=== PATIENT | male | born 1955 | race Caucasian/White ===

== ENCOUNTER 2017-01-18 13:39 | Emergency (ER) | payer SELFPAY ==
--- NOTE | 2017-01-18 14:13 | Emergency Department Report ---
Chief Complaint: Wound/Laceration Stated Complaint: WOUND CHECK Time Seen by Provider: 01/18/17 14:06 - HPI History of Present Illness: PT states he had foot surgery at [place]. PT states after his surgery, he was sent to [facility] and he said it was very dirty. PT states he is here to have dressing changed. pt states his dressing has not been changed in two weeks. - ROS Review of Systems: + odor to foot - Exam Physical Exam: PT is tachycardic PT has a dressing to his L foot. Dressing removed, + odor, + drainage, + swelling MSE screening note: Focused history and physical exam performed. Due to findings the following was ordered: ekg, labs, xr PT states he only wanted dressing change. PT aware that he will need more of a work up due to the condition of his foot. ED Disposition for MSE Condition: Stable
[2017-01-18 15:01] LABS: Basophils % (Auto) 0.6 % (0.0-1.8); Eosinophils % (Auto) 0.9 % (0.0-4.3); Hematocrit 38.4 % (35.5-45.6); Hemoglobin 12.1 gm/dl (11.8-15.2); Mean Corpuscular HGB Conc 31 % (32-34); Mean Corpuscular Hemoglobin 28 pg (28-32); Mean Corpuscular Volume 90 fl (84-94); Platelet Count 444 K/mm3 (140-440); Red Blood Count 4.28 M/mm3 (3.65-5.03); Red Cell Distribution Width 17.2 % (13.2-15.2)
[2017-01-18 15:15] LABS: Alanine Aminotransferase 57 units/L (7-56); Albumin 3.6 g/dL (3.9-5); Albumin/Globulin Ratio 1.1 %; Alkaline Phosphatase 158 units/L (35-129); Anion Gap 23 mmol/L; Blood Urea Nitrogen 33 mg/dL (9-20); Calcium 8.8 mg/dL (8.4-10.2); Carbon Dioxide 22 mmol/L (22-30); Chloride 99.6 mmol/L (98-107); Glucose 96 mg/dL (75-100); Potassium 4.2 mmol/L (3.6-5.0); Sodium 140 mmol/L (137-145)
[2017-01-18 15:38] VITALS: BP 133/97
--- NOTE | 2017-01-18 17:06 | Emergency Department Report ---
HPI - General Chief Complaint: Wound/Laceration Time Seen by Provider: 01/18/17 14:06 - HPI HPI: Chief complaint I need my foot clean Patient is a 61-year-old white male status post left great toe amputation about 2 weeks ago at [facility]. State he has been having difficulties scheduling his follow-up appointment with his negative turner apprentice. States he lives in a motel and doesn't trust awarded they're to clean his wound. Came to ED to reevaluate his left great toe wound. Patient denies any fever or chills or drainage. States he walks a lot, looking for jobs at different places. He does not have a car and walks to most places. ED Past Medical Hx - Past Medical History Previous Medical History?: Yes Hx Hypertension: Yes Additional medical history: CAD, PVD - Surgical History Past Surgical History?: Yes Additional Surgical History: Left foot surgery - Social History Smoking Status: Former Smoker Substance Use Type: Prescribed - Medications Home Medications: Home Medications Medication Instructions Recorded Confirmed Last Taken Type Clopidogrel [Plavix] 75 mg PO QDAY 01/18/17 01/18/17 01/17/17 History Furosemide [Lasix TAB] 40 mg PO QDAY 01/18/17 01/18/17 01/17/17 History Lovastatin [Altoprev] 40 mg PO QPM 01/18/17 01/18/17 01/17/17 History Metoprolol [Lopressor TAB] 50 mg PO DAILY 01/18/17 01/18/17 01/17/17 History Sulfamethoxazole/Trimethoprim 1 each PO BID #20 tablet 01/18/17 Unknown Rx [Bactrim DS TAB] traMADol [Ultram] 50 mg PO Q4HR PRN 01/18/17 01/18/17 01/17/17 History ED Review of Systems ROS: Stated complaint: WOUND CHECK Other details as noted in HPI Comment: All other systems reviewed and negative Constitutional: weakness Musculoskeletal: myalgia Skin: other (left great toe amputation) Physical Exam - Physical Exam Vital Signs: Vital Signs 01/18/17 01/18/17 14:09 15:38 Temperature 98.3 F Pulse Rate 133 H 120 H Respiratory 20 16 Rate Blood Pressure 145/101 Blood Pressure 133/97 [Left] O2 Sat by Pulse 100 97 Oximetry Physical Exam: Vital signs reviewed Gen. alert and oriented 3 in no distress Head atraumatic normocephalic Eyes PERR LA EOMI Chest regular rate and rhythm normal S1-S2 lungs clear bilaterally Abdomen soft nondistended Back no point tenderness paravertebral tenderness Neuro no focal deficit. Psych normal mood. Extremity left great toe area wound dry clean intact. ED Course Vital Signs 01/18/17 01/18/17 14:09 15:38 Temperature 98.3 F Pulse Rate 133 H 120 H Respiratory 20 16 Rate Blood Pressure 145/101 Blood Pressure 133/97 [Left] O2 Sat by Pulse 100 97 Oximetry - Reevaluation(s) Reevaluation #1: 01/18/17 17:05 Wound was cleaned and dressed in a sterile manner by KARUNA Jacobo. patient was advised about admission for observation due to abnormal lactic acid and tachycardia. But he states that he's been walking all day today which might be the cause for his elevated heart rate. He stated that he has to go look for work and therefore I called his negative turner apprentice and set him up an appointment for tomorrow at 10:30 in the morning. He will try to get there in the morning and is in agreement with that plan. I will cover him with Bactrim for cellulitis and abscess protection. ED Medical Decision Making - Lab Data Result diagrams: 01/18/17 14:34 01/18/17 14:34 Critical care attestation.: If time is entered above; I have spent that time in minutes in the direct care of this critically ill patient, excluding procedure time. ED Disposition Clinical Impression: Cellulitis and abscess of foot Disposition: DC-01 TO HOME OR SELFCARE Is pt being admited?: No Does the pt Need Aspirin: No Condition: Stable Instructions: Cellulitis (ED) Prescriptions: Sulfamethoxazole/Trimethoprim [Bactrim DS TAB] 1 each PO BID #20 tablet Referrals: PRIMARY CARE, [Primary Care Provider] - 3-5 Days
--- NOTE | 2017-01-19 09:38 | XRay Report ---
LEFT FOOT, 3 views: History: Pain, swelling, infection The distal left great toe has been amputated or destroyed. There is overlying soft tissue swelling consistent with cellulitis. The remaining bony structures and joint spaces are unremarkable. IMPRESSION: Soft tissue swelling of the distal foot. The great toe is essentially absent. Correlate for history of surgery. Otherwise, osteomyelitis should be considered.
== END 2017-01-18 17:38 | disposition home or self-care (01) ==
LOC: ED 13:39
DX: L03.032 Cellulitis of left toe (principal); L02.612 Cutaneous abscess of left foot; I10 Essential (primary) hypertension; I25.10 Atherosclerotic heart disease of native coronary artery without angina pectoris; F17.210 Nicotine dependence, cigarettes, uncomplicated; Z79.02 Long term (current) use of antithrombotics/antiplatelets
CPT/HCPCS: 36415; 80053; 82140; 85025; 93005; 93010; 99283

== ENCOUNTER 2017-01-19 18:43 | Inpatient (IN) | payer OTHER ==
[2017-01-19] MEDS ORDERED: MORPHINE IV ONE (19:39)
[2017-01-19] MEDS ORDERED: ZOFRAN IV ONE (19:40)
[2017-01-19 19:51] LABS: Basophils % (Auto) 0.5 % (0.0-1.8); Eosinophils % (Auto) 0.7 % (0.0-4.3); Hematocrit 36.2 % (35.5-45.6); Hemoglobin 11.8 gm/dl (11.8-15.2); Mean Corpuscular HGB Conc 33 % (32-34); Mean Corpuscular Hemoglobin 28 pg (28-32); Platelet Count 402 K/mm3 (140-440); Red Blood Count 4.15 M/mm3 (3.65-5.03); Red Cell Distribution Width 17.1 % (13.2-15.2)
[2017-01-19 19:58] LABS: Anion Gap 21 mmol/L; BUN/Creatinine Ratio 29.16; Blood Urea Nitrogen 35 mg/dL (9-20); Calcium 8.8 mg/dL (8.4-10.2); Carbon Dioxide 24 mmol/L (22-30); Chloride 100.1 mmol/L (98-107); Glucose 153 mg/dL (75-100); Sodium 140 mmol/L (137-145)
[2017-01-19 20:00] LABS: Mean Corpuscular Volume 87 fl (84-94)
[2017-01-19] MEDS ORDERED: HEPARIN IV ONE (20:11)
[2017-01-19 20:19] LABS: Cholesterol 93 mg/dL (50-199); HDL Cholesterol 19 mg/dL (40-59); LDL Cholesterol,Direct 49 mg/dL (50-130); Triglycerides 128 mg/dL (2-149)
--- NOTE | 2017-01-19 20:21 | Admit Criteria Form ---
Admission Criteria Documentation: CHEST PAIN Clinical Indications for Admission to Inpatient Care (Place 'X' for any and all applicable criteria): Admission is indicated for chest pain and ANY ONE of the following(1)(2)(3)(4)(5 ): [X ]I. Angina with acute coronary syndrome (Also use Myocardial Infarction or Angina guideline) [ ]II. Hemodynamic instability [ ]III. Angina needing acute intervention as indicated by ALL of the following( 11)(12): [ ]a) Unstable angina is present as indicated by angina that is ANY ONE of the following: [ ]i) New onset [ ]ii) Nocturnal [ ]iii) Prolonged at rest [ ]iv) Progressive [ ]b) Angina warrants acute intervention as indicated by ANY ONE of the following: [ ]i) Recurrent angina (e.g, not responding as previously to treatment) [ ]ii) Angina at rest or with low-level activities despite initial medical therapy [ ]iii) New or presumably new ST-segment depression on ECG [ ]iv) Signs or symptoms of heart failure (eg, dyspnea, pulmonary edema) [ ]v) New or worsening mitral regurgitation [ ]vi) Hemodynamic instability [ ]vii) Dangerous arrhythmia (eg, sustained ventricular tachycardia) [ ]viii) History of percutaneous coronary intervention within 6 months [ ]ix) History of coronary artery bypass graft surgery [ ]x) KYE risk score of 2 or greater[A] [ ]xi) History of Diabetes(14) [ ]xii) High-risk cardiac ischemia findings on noninvasive testing (e.g, echocardiogram, treadmill testing, nuclear scan) [ ]xiii) Chronic renal insufficiency (ie, estimated GFR less than 60 mL/min/1.732m) [ ]xiv) Left ventricular ejection fraction less than 40% [ ]IV. Evidence of UT (eg, cardiac biomarkers positive, ST-segment elevation on ECG) also use Myocardial Infarction Criteria Form. [ ]V. Pulmonary edema [ ]. Respiratory distress [ ]VII. Chest pain indicative of serious diagnosis other than coronary artery disease (eg, aortic dissection) [ ]VIII. Contraindications and/or Inappropriate clinical situations for Observational Care in patients with Chest Pain, when ANY ONE of the following is required: [ ]a) Patient with risk factor for pulmonary embolism, acute coronary syndrome and myocardial infarction (18) [ ]b) Patient with Pulmonary embolism require an average LOS of 4.3 days, therefore emergency department observation management is inappropriate 18,23 [ ]c) Painful condition/s in the elderly, have the highest rate of recidivism after emergency department observation management (10.8%) 20,21,22 [ ]d) Elevated cardiac biomarker requires intensive and exhaustive care (19) [ ]IX. General contraindications and/or Inappropriate clinical situations for Observational Care in patients with Chest Pain, when ANY ONE of the following is required: [ ]a) Prediction of prolongation of LOS based on ANY ONE of the following may be considered as a contraindication for observational care 2, 3, 4, 5, 6, 7, 8, 9, 10, 11 [ ]i) Age > 65 yrs. [ ]ii) Patient arriving by ambulance [ ]iii) Patient with high acuity [ ]iv) Patient requiring vital sign monitoring [ ]v) Patient on IV medication [ ]b) Systolic blood pressures 180mmHg 3,12 [ ]c) Patient with altered mental status including delirium and other alteration of consciousness, (3) [ ]d) Patient whose discharge disposition will be to a residential home or rehabilitation home should not be managed in Emergency Department Observation Unit. CMS rule requires 3 days hospital stay before such placement. 3,13 [ ]e) Patient with failure to thrive due to broad array of etiologies 3,16,17 [ ]f) Inability to ambulate 3,14 Extended stay beyond goal length of stay may be needed for (1)(28): [ ]a) Specific condition diagnosed after evaluation (eg, pulmonary embolism, aortic dissection) [ ]b) Unstable angina [ ]c) Continued suspicion of acute coronary syndrome with inability to complete needed cardiac evaluation (eg, patient clinically unable to undergo stress testing) [ ]d) Myocardial infarction (Contents from ANGINA and CHEST PAIN clinical indications for admission to inpatient care have been integrated in this form) The original [facility] [employer] content created by [employer] has been revised. The portions of the content which have been revised are identified through the use of italic text or in bold, and [facility] [employer] has neither reviewed nor approved the modified material. All other unmodified content is copyright [employer]. Please see references footnoted in the original [employer] [employer] edition 2016 Admission Criteria Met: Yes
[2017-01-19] MEDS ORDERED: HEPARIN 10,000 UNITS/10 ML ONE (20:22)
[2017-01-19] MEDS ORDERED: ASPIRIN PO ONE (20:43)
[2017-01-19] MEDS ORDERED: NITRO-BID 2% TP ONE (20:43)
--- NOTE | 2017-01-19 21:12 | Emergency Department Report ---
ED Chest Pain HPI - General Chief Complaint: Chest Pain Stated Complaint: CHEST PAIN Time Seen by Provider: 01/19/17 19:38 Source: patient Mode of arrival: Ambulatory Limitations: No Limitations - History of Present Illness MD Complaint: chest pain -: Gradual Time: 15:00 Pain Location: substernal Pain Radiation: none Severity: severe Severity scale (0 -10): 4 Quality: tightness, heaviness Consistency: constant Improves With: nothing Worsens With: nothing Context: recent illness re: nausea, dyspnea Other Symptoms: palpitations Treatments Prior to Arrival: none - Related Data On Oral Contraceptives: No Home Medications Medication Instructions Recorded Confirmed Last Taken Clopidogrel [Plavix] 75 mg PO QDAY 01/18/17 01/19/17 01/19/17 Furosemide [Lasix TAB] 40 mg PO QDAY 01/18/17 01/19/17 01/19/17 Lovastatin [Altoprev] 40 mg PO QPM 01/18/17 01/19/17 01/19/17 Metoprolol [Lopressor TAB] 50 mg PO DAILY 01/18/17 01/19/17 01/19/17 traMADol [Ultram] 50 mg PO Q4HR PRN 01/18/17 01/19/17 01/19/17 Previous Rx's Medication Instructions Recorded Last Taken Type Sulfamethoxazole/Trimethoprim 1 each PO BID #20 tablet 01/18/17 01/19/17 Rx [Bactrim DS TAB] Allergies Allergy/AdvReac Type Severity Reaction Status Date / Time Penicillins AdvReac Hives Verified 01/18/17 14:28 Heart Score - HEART Score History: Highly suspicious EKG: Non-specific Age: 45-65 Risk factors: > 3 risk factors or hx of atherosclerotic disease Troponin: 1-3x normal limit HEART Score: 7 - Critical Actions Critical Actions: 4-6 pts:12-16.6% risk of adverse cardiac event. Should be admitted ED Review of Systems ROS: Stated complaint: CHEST PAIN Other details as noted in HPI Comment: All other systems reviewed and negative Respiratory: shortness of breath Cardiovascular: chest pain ED Past Medical Hx - Past Medical History Previous Medical History?: Yes Hx Hypertension: Yes Hx Heart Attack/AMI: Yes (11/28/16) Hx Congestive Heart Failure: (possible CHK bilateral lower edema) Additional medical history: CAD, PVD - Surgical History Past Surgical History?: Yes Additional Surgical History: Left foot surgery - Social History Smoking Status: Current Some Day Smoker Substance Use Type: None - Medications Home Medications: Home Medications Medication Instructions Recorded Confirmed Last Taken Type Clopidogrel [Plavix] 75 mg PO QDAY 01/18/17 01/19/17 01/19/17 History Furosemide [Lasix TAB] 40 mg PO QDAY 01/18/17 01/19/17 01/19/17 History Lovastatin [Altoprev] 40 mg PO QPM 01/18/17 01/19/17 01/19/17 History Metoprolol [Lopressor TAB] 50 mg PO DAILY 01/18/17 01/19/17 01/19/17 History Sulfamethoxazole/Trimethoprim 1 each PO BID #20 tablet 01/18/17 01/19/17 Rx [Bactrim DS TAB] traMADol [Ultram] 50 mg PO Q4HR PRN 01/18/17 01/19/17 01/19/17 History ED Physical Exam - General Limitations: No Limitations General appearance: alert, in no apparent distress - Head Head exam: Present: atraumatic - Eye Eye exam: Present: normal appearance Pupils: Present: normal accommodation - ENT ENT exam: Present: normal exam, normal orophraynx - Neck Neck exam: Present: normal inspection, tenderness - Respiratory Respiratory exam: Present: normal lung sounds bilaterally - Cardiovascular Cardiovascular Exam: Present: regular rate, normal rhythm - GI/Abdominal GI/Abdominal exam: Present: soft - Rectal Rectal exam: Present: deferred ED Course Vital Signs 01/19/17 01/19/17 01/19/17 18:20 18:30 18:40 Temperature Pulse Rate Respiratory Rate Blood Pressure 154/102 154/102 158/105 Blood Pressure [Right] O2 Sat by Pulse 97 97 98 Oximetry 01/19/17 01/19/17 01/19/17 18:50 19:02 19:16 Temperature 98.7 F Pulse Rate 111 H 114 H Respiratory 16 18 Rate Blood Pressure 158/98 120/88 135/99 Blood Pressure [Right] O2 Sat by Pulse 98 97 98 Oximetry 01/19/17 01/19/17 01/19/17 19:20 19:28 19:30 Temperature Pulse Rate 114 H 115 H Respiratory 22 29 H Rate Blood Pressure 135/99 127/100 Blood Pressure 135/99 [Right] O2 Sat by Pulse 96 98 Oximetry 01/19/17 01/19/17 01/19/17 19:40 19:50 20:00 Temperature Pulse Rate 114 H 113 H 116 H Respiratory 29 H 21 12 Rate Blood Pressure 127/100 122/92 114/83 Blood Pressure [Right] O2 Sat by Pulse 95 98 99 Oximetry 01/19/17 01/19/17 01/19/17 20:10 20:20 20:30 Temperature Pulse Rate 113 H 114 H 120 H Respiratory 19 28 H 30 H Rate Blood Pressure 114/83 123/96 134/103 Blood Pressure [Right] O2 Sat by Pulse 99 99 93 Oximetry ED Medical Decision Making - Lab Data Result diagrams: 01/19/17 19:24 01/19/17 19:24 Critical care attestation.: If time is entered above; I have spent that time in minutes in the direct care of this critically ill patient, excluding procedure time. ED Disposition Clinical Impression: Acute coronary syndrome Disposition: DC-09 OP ADMIT IP TO THIS HOSP Is pt being admited?: Yes Does the pt Need Aspirin: No Condition: Stable Referrals: PRIMARY CARE, [Primary Care Provider] - 3-5 Days
--- NOTE | 2017-01-19 23:23 | History and Physical Report ---
History of Present Illness Date of examination: 01/19/17 Date of admission: 01/19/17 21:13 Chief complaint: Left-sided chest pain for 2 days History of present illness: History of present illness: 61-year-old male with history of 4 hypertension congestive heart failure with recent acute NE in December 2016 comes in for left-sided chest pain. Chest pain for off and on for the last 2 days. No diaphoresis. No shortness of breath. No palpitations. Chest pain as 6/10 intermittent in nature. No exacerbating or relieving factors. No recent travel. No prolonged sitting. - Past Medical History Previous Medical History?: Yes Hx Hypertension: Yes Hx Heart Attack/AMI: Yes (11/28/16) Hx Congestive Heart Failure: (possible CHK bilateral lower edema) Additional medical history: CAD, PVD - Surgical History Past Surgical History?: Yes Additional Surgical History: Left foot surgery - Social History Smoking Status: Current Some Day Smoker Substance Use Type: None - Medications Home Medications: Home Medications Medication Instructions Recorded Confirmed Last Taken Type Clopidogrel [Plavix] 75 mg PO QDAY 01/18/17 01/19/17 01/19/17 History Furosemide [Lasix TAB] 40 mg PO QDAY 01/18/17 01/19/17 01/19/17 History Lovastatin [Altoprev] 40 mg PO QPM 01/18/17 01/19/17 01/19/17 History Metoprolol [Lopressor TAB] 50 mg PO DAILY 01/18/17 01/19/17 01/19/17 History Sulfamethoxazole/Trimethoprim 1 each PO BID #20 tablet 01/18/17 01/19/17 Rx [Bactrim DS TAB] traMADol [Ultram] 50 mg PO Q4HR PRN 01/18/17 01/19/17 01/19/17 History Review of System: Constitutional: no fever, no chills, no weight loss Ears, eyes, nose, mouth and throat: no nasal congestion, no nasal discharge, no sinus pressure, no vision change, no red eye. Neck: No neck pain or rigidity. Cardiovascular: As in history of present illness Respiratory: No shortness of breath, no cough, no congestion, no wheezing Gastrointestinal: no abdominal pain, no nausea, no vomiting Genitourinary : no dysuria, no hematuria Musculoskeletal: no joint swelling or muscle ache Integumentary: no rash, no pruritis Neurological: no parathesias, no numbness, no tingling Endocrine: no cold or heat intolerance, no polyuria or polydipsia Hematologic/Lymphatic: no easy bruising, no easy bleeding, no gland swelling Allergic/Immunologic: no urticaria, no angioedema. Medications and Allergies Allergies Allergy/AdvReac Type Severity Reaction Status Date / Time Penicillins AdvReac Hives Verified 01/18/17 14:28 Home Medications Medication Instructions Recorded Confirmed Last Taken Type Clopidogrel [Plavix] 75 mg PO QDAY 01/18/17 01/19/17 01/19/17 History Furosemide [Lasix TAB] 40 mg PO QDAY 01/18/17 01/19/17 01/19/17 History Lovastatin [Altoprev] 40 mg PO QPM 01/18/17 01/19/17 01/19/17 History Metoprolol [Lopressor TAB] 50 mg PO DAILY 01/18/17 01/19/17 01/19/17 History Sulfamethoxazole/Trimethoprim 1 each PO BID #20 tablet 01/18/17 01/19/17 Rx [Bactrim DS TAB] traMADol [Ultram] 50 mg PO Q4HR PRN 01/18/17 01/19/17 01/19/17 History Exam - Physical Exam Narrative exam: Lying comfortably - Constitutional Vitals: Temp Pulse Resp BP Pulse Ox 97.6 F 112 H 24 118/95 94 01/19/17 23:11 01/19/17 23:11 01/19/17 23:11 01/19/17 23:11 01/19/17 23:11 General appearance: Present: no acute distress, well-nourished - EENT Eyes: Present: PERRL ENT: hearing intact, clear oral mucosa - Neck Neck: Present: supple, normal ROM - Respiratory Respiratory effort: normal Respiratory: bilateral: CTA - Cardiovascular Heart Sounds: Present: S1 & S2. Absent: rub, click - Extremities Extremities: pulses symmetrical, No edema Peripheral Pulses: within normal limits - Abdominal General gastrointestinal: Present: soft, non-tender, non-distended, normal bowel sounds Male genitourinary: Present: normal - Integumentary Integumentary: Present: clear, warm, dry - Musculoskeletal Musculoskeletal: gait normal, strength equal bilaterally - Psychiatric Psychiatric: appropriate mood/affect, intact judgment & insight - Neurologic Neurologic: CNII-XII intact, moves all extremities Results - Labs CBC & Chem 7: 01/20/17 04:54 01/20/17 04:54 Labs: Laboratory Last Values WBC 9.0 K/mm3 (4.5-11.0) 01/19/17 19:24 RBC 4.15 M/mm3 (3.65-5.03) 01/19/17 19:24 Hgb 11.8 gm/dl (11.8-15.2) 01/19/17 19:24 Hct 36.2 % (35.5-45.6) 01/19/17 19:24 MCV 87 fl (84-94) D 01/19/17 19:24 MCH 28 pg (28-32) 01/19/17 19:24 MCHC 33 % (32-34) 01/19/17 19:24 RDW 17.1 % (13.2-15.2) H 01/19/17 19:24 Plt Count 402 K/mm3 (140-440) 01/19/17 19:24 Lymph % (Auto) 16.1 % (13.4-35.0) 01/19/17 19:24 [place] % (Auto) 8.8 % (0.0-7.3) H 01/19/17 19:24 Eos % (Auto) 0.7 % (0.0-4.3) 01/19/17 19:24 Baso % (Auto) 0.5 % (0.0-1.8) 01/19/17 19:24 Lymph # 1.4 K/mm3 (1.2-5.4) 01/19/17 19:24 [place] # 0.8 K/mm3 (0.0-0.8) 01/19/17 19:24 Eos # 0.1 K/mm3 (0.0-0.4) 01/19/17 19:24 Baso # 0.0 K/mm3 (0.0-0.1) 01/19/17 19:24 Seg Neutrophils % 73.9 % (40.0-70.0) H 01/19/17 19:24 Seg Neutrophils # 6.6 K/mm3 (1.8-7.7) 01/19/17 19:24 D-Dimer 3206.82 ng/mlDDU (0-234) H 01/19/17 20:26 Sodium 140 mmol/L (137-145) 01/19/17 19:24 Potassium 5.0 mmol/L (3.6-5.0) 01/19/17 19:24 Chloride 100.1 mmol/L (98-107) 01/19/17 19:24 Carbon Dioxide 24 mmol/L (22-30) 01/19/17 19:24 Anion Gap 21 mmol/L 01/19/17 19:24 BUN 35 mg/dL (9-20) H 01/19/17 19:24 Creatinine 1.2 mg/dL (0.8-1.5) 01/19/17 19:24 Estimated GFR > 60 ml/min 01/19/17 19:24 BUN/Creatinine Ratio 29.16 % 01/19/17 19:24 Glucose 153 mg/dL (75-100) H 01/19/17 19:24 Calcium 8.8 mg/dL (8.4-10.2) 01/19/17 19:24 Troponin T 0.270 ng/mL (0.00-0.029) H* 01/19/17 19:24 NT-Pro-B Natriuret Pep 37488 pg/mL (0-900) H 01/19/17 19:24 Triglycerides 128 mg/dL (2-149) 01/19/17 19:24 Cholesterol 93 mg/dL (50-199) 01/19/17 19:24 LDL Cholesterol Direct 49 mg/dL (50-130) L 01/19/17 19:24 HDL Cholesterol 19 mg/dL (40-59) L 01/19/17 19:24 Cholesterol/HDL Ratio 4.89 % 01/19/17 19:24 Short CBC 01/19/17 01/19/17 01/20/17 Range/Units 19:24 23:58 04:54 WBC 9.0 8.7 9.3 (4.5-11.0) K/mm3 Hgb 11.8 12.1 12.1 (11.8-15.2) gm/dl Hct 36.2 38.4 36.4 (35.5-45.6) % Plt Count 402 400 392 (140-440) K/mm3 BMP 01/19/17 01/19/17 01/20/17 19:24 22:30 04:54 Sodium 140 138 141 Potassium 5.0 4.8 4.9 Chloride 100.1 100.6 101.2 Carbon Dioxide 24 20 L 24 BUN 35 H 37 H 41 H Creatinine 1.2 1.1 1.2 Glucose 153 H 131 H 90 Calcium 8.8 8.7 8.9 Cardiac Enzymes 01/19/17 01/19/17 01/19/17 Range/Units 19:24 22:30 22:31 Total Creatine Kinase 28 L (55-170) units/L CK-MB (CK-2) 2.2 (0.0-4.0) ng/mL Troponin T 0.270 H* 0.274 H* (0.00-0.029) ng/mL 01/19/17 01/20/17 01/20/17 Range/Units 23:58 04:54 04:54 Total Creatine Kinase 24 L (55-170) units/L CK-MB (CK-2) 2.1 (0.0-4.0) ng/mL Troponin T 0.298 H* 0.313 H* (0.00-0.029) ng/mL Liver Function 01/20/17 Range/Units 04:54 Total Bilirubin 0.90 (0.1-1.2) mg/dL AST 105 H (5-40) units/L ALT 113 H (7-56) units/L Alkaline Phosphatase 150 H (35-129) units/L Albumin 3.1 L (3.9-5) g/dL - Imaging and Cardiology EKG: report reviewed (sinus tachycardia heart rate of 124 nonspecific T-wave abnormalities and low voltage QRS) Assessment and Plan Advance Directives: Yes (full code) VTE prophylaxis?: Chemical Plan of care discussed with patient/family: Yes - Patient Problems (1) Acute coronary syndrome Current Visit: Yes Status: Acute Plan to address problem: Patient to get Trish scan. Also cardiology consult. Troponin is slightly high but CK-MB and CK is only 24 hence not in favor of acute cardiac injury. The high troponin may be secondary to his acute NE recently. Patient had 2 stents recently in December 2016. It was done at [facility]. 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 Patient had acute NE in November 2016 (2) Congestive heart failure Current Visit: Yes Status: Chronic Qualifiers: Congestive heart failure type: combined Congestive heart failure chronicity : C Plan to address problem: Continue Lasix (3) Coronary artery disease Current Visit: Yes Status: Chronic Qualifiers: Coronary Disease-Associated Artery/Lesion type: [place] artery [place] vs. transplanted heart: [place] heart Associated angina: with unspecified angina Qualified Code(s): I25.119 - Atherosclerotic heart disease of [place] coronary artery with unspecified angina pectoris Plan to address problem: Continue Plavix 75 mg once a day (4) Hypertension Current Visit: Yes Status: Chronic Qualifiers: Hypertension type: essential hypertension Qualified Code(s): I10 - Essential (primary) hypertension Plan to address problem: Continue metoprolol and losartan 25 mg daily (5) Hyperlipidemia Current Visit: Yes Status: Chronic Qualifiers: Hyperlipidemia type: mixed hyperlipidemia Qualified Code(s): E78.2 - Mixed hyperlipidemia Plan to address problem: Continue statins (6) DVT prophylaxis Current Visit: Yes Status: Acute Plan to address problem: Lovenox 40 mg subcutaneous daily
[2017-01-19] MEDS ORDERED: ZOFRAN IV PRN (23:24)
[2017-01-19] MEDS ORDERED: MILK OF MAGNESIA PO PRN (23:24)
[2017-01-19] MEDS ORDERED: DILAUDID IV PRN (23:24)
[2017-01-19] MEDS ORDERED: TYLENOL PO PRN (23:24)
[2017-01-19] MEDS ORDERED: DULCOLAX PR PRN (23:24)
[2017-01-19] MEDS ORDERED: SODIUM CHLORIDE FLUSH SYRINGE 10 ML IV PRN (23:26)
[2017-01-19] MEDS: BACTRIM DS PO SCH (23:49)
[2017-01-20 00:06] LABS: Anion Gap 22 mmol/L; BUN/Creatinine Ratio 33.63; Blood Urea Nitrogen 37 mg/dL (9-20); Calcium 8.7 mg/dL (8.4-10.2); Carbon Dioxide 20 mmol/L (22-30); Chloride 100.6 mmol/L (98-107); Glucose 131 mg/dL (75-100); Potassium 4.8 mmol/L (3.6-5.0); Sodium 138 mmol/L (137-145)
[2017-01-20 00:08] LABS: Creatine Kinase MB 2.2 ng/mL (0.0-4.0)
[2017-01-20 00:27] LABS: Basophils % (Auto) 0.9 % (0.0-1.8); Eosinophils % (Auto) 0.8 % (0.0-4.3); Hematocrit 38.4 % (35.5-45.6); Hemoglobin 12.1 gm/dl (11.8-15.2); Mean Corpuscular HGB Conc 32 % (32-34); Mean Corpuscular Hemoglobin 28 pg (28-32); Mean Corpuscular Volume 88 fl (84-94); Platelet Count 400 K/mm3 (140-440); Red Blood Count 4.35 M/mm3 (3.65-5.03); Red Cell Distribution Width 17.3 % (13.2-15.2); White Blood Count 8.7 K/mm3 (4.5-11.0)
[2017-01-20 05:41] LABS: Eosinophils % (Auto) 1.9 % (0.0-4.3); Hematocrit 36.4 % (35.5-45.6); Hemoglobin 12.1 gm/dl (11.8-15.2); Mean Corpuscular HGB Conc 33 % (32-34); Mean Corpuscular Hemoglobin 29 pg (28-32); Mean Corpuscular Volume 87 fl (84-94); Platelet Count 392 K/mm3 (140-440); Red Blood Count 4.16 M/mm3 (3.65-5.03); White Blood Count 9.3 K/mm3 (4.5-11.0)
[2017-01-20 06:07] LABS: Alanine Aminotransferase 113 units/L (7-56); Albumin 3.1 g/dL (3.9-5); Alkaline Phosphatase 150 units/L (35-129); Anion Gap 21 mmol/L; BUN/Creatinine Ratio 34.16; Blood Urea Nitrogen 41 mg/dL (9-20); Calcium 8.9 mg/dL (8.4-10.2); Carbon Dioxide 24 mmol/L (22-30); Chloride 101.2 mmol/L (98-107); Glucose 90 mg/dL (75-100); Potassium 4.9 mmol/L (3.6-5.0); Sodium 141 mmol/L (137-145); Total Protein 6.2 g/dL (6.3-8.2)
[2017-01-20 06:20] LABS: Creatine Kinase MB 2.1 ng/mL (0.0-4.0)
--- NOTE | 2017-01-20 07:42 | XRay Report ---
PORTABLE CHEST INDICATION: Chest pain. COMPARISON: None similar. FINDINGS: Portable, frontal chest radiograph suggests mild cardiomegaly and left coronary stent. Aortic knob calcifications. Slight bibasilar haziness, possibly atelectasis, though minimal fluid not entirely excluded. No CHF. EKG leads. Intact bones. CONCLUSION: Findings, as above. Thank you for the opportunity to participate in this patient's care.
[2017-01-20] MEDS ORDERED: LASIX PO SCH (10:00)
[2017-01-20] MEDS ORDERED: PLAVIX PO SCH (10:00)
[2017-01-20] MEDS ORDERED: LEXISCAN IV ONE (10:53)
--- NOTE | 2017-01-20 12:15 | Progress Note ---
Assessment and Plan Assessment and plan: 61-year-old male with history of hypertension, congestive heart failure with recent acute LA in November 2016 pw with chest pressure, ROSARIO, orthopnea. Nonstemi for stress test -cardiology consult -start heparin drip -concern for VTE acute on chronic Congestive heart failure, sytolic Continue Lasix, optimize cardiac meds -fup echo -cardiology following Hypertension Continue metoprolol and losartan 25 mg daily Hyperlipidemia Continue statins LLE DVT -start heparin drip -fup CTA chest to r/o PE DVT prophylaxis fully anticoagulated History Interval history: still having intermittent chest pressure, 6/10, ROSARIO and orthopnea. LLE Swelling Hospitalist Physical - Physical exam Narrative exam: General: Patient appears well in no distress HEENT: MMM, EOMI cardiac: S1-S2 heard lungs: clear to auscultation, abdomen: soft, nontender, nondistended bowel sounds positive extremities: 2 plus LLE pitting edema, sp L big toe amputation with wound ulcer at the site Skin: no rash or lesion Neuro: no focal deficit Psych: appropriate behavior and mood, cognition intact - Constitutional Vitals: Temp Pulse Resp BP Pulse Ox 97.4 F L 111 H 18 119/93 94 01/20/17 08:54 01/20/17 08:54 01/20/17 08:54 01/20/17 08:54 01/20/17 08:54 General appearance: Present: no acute distress, well-nourished Results - Labs CBC & Chem 7: 01/20/17 04:54 01/20/17 04:54 Labs: Laboratory Last Values WBC 9.3 K/mm3 (4.5-11.0) 01/20/17 04:54 RBC 4.16 M/mm3 (3.65-5.03) 01/20/17 04:54 Hgb 12.1 gm/dl (11.8-15.2) 01/20/17 04:54 Hct 36.4 % (35.5-45.6) 01/20/17 04:54 MCV 87 fl (84-94) 01/20/17 04:54 MCH 29 pg (28-32) 01/20/17 04:54 MCHC 33 % (32-34) 01/20/17 04:54 RDW 17.0 % (13.2-15.2) H 01/20/17 04:54 Plt Count 392 K/mm3 (140-440) 01/20/17 04:54 Lymph % (Auto) 30.1 % (13.4-35.0) 01/20/17 04:54 Tripp % (Auto) 8.6 % (0.0-7.3) H 01/20/17 04:54 Eos % (Auto) 1.9 % (0.0-4.3) 01/20/17 04:54 Baso % (Auto) 1.0 % (0.0-1.8) 01/20/17 04:54 Lymph # 2.8 K/mm3 (1.2-5.4) 01/20/17 04:54 Tripp # 0.8 K/mm3 (0.0-0.8) 01/20/17 04:54 Eos # 0.2 K/mm3 (0.0-0.4) 01/20/17 04:54 Baso # 0.1 K/mm3 (0.0-0.1) 01/20/17 04:54 Seg Neutrophils % 58.4 % (40.0-70.0) 01/20/17 04:54 Seg Neutrophils # 5.4 K/mm3 (1.8-7.7) 01/20/17 04:54 D-Dimer 3206.82 ng/mlDDU (0-234) H 01/19/17 20:26 Sodium 141 mmol/L (137-145) 01/20/17 04:54 Potassium 4.9 mmol/L (3.6-5.0) 01/20/17 04:54 Chloride 101.2 mmol/L (98-107) 01/20/17 04:54 Carbon Dioxide 24 mmol/L (22-30) 01/20/17 04:54 Anion Gap 21 mmol/L 01/20/17 04:54 BUN 41 mg/dL (9-20) H 01/20/17 04:54 Creatinine 1.2 mg/dL (0.8-1.5) 01/20/17 04:54 Estimated GFR > 60 ml/min 01/20/17 04:54 BUN/Creatinine Ratio 34.16 % 01/20/17 04:54 Glucose 90 mg/dL (75-100) 01/20/17 04:54 Hemoglobin A1c 5.7 % (4-6) 01/19/17 23:58 Calcium 8.9 mg/dL (8.4-10.2) 01/20/17 04:54 Total Bilirubin 0.90 mg/dL (0.1-1.2) 01/20/17 04:54 AST 105 units/L (5-40) H 01/20/17 04:54 ALT 113 units/L (7-56) H 01/20/17 04:54 Alkaline Phosphatase 150 units/L (35-129) H 01/20/17 04:54 Total Creatine Kinase 24 units/L (55-170) L 01/20/17 04:54 CK-MB (CK-2) 2.1 ng/mL (0.0-4.0) 01/20/17 04:54 CK-MB (CK-2) Rel Index 8.7 (0-4) H 01/20/17 04:54 Troponin T 0.313 ng/mL (0.00-0.029) H* 01/20/17 04:54 NT-Pro-B Natriuret Pep 25985 pg/mL (0-900) H 01/19/17 19:24 Total Protein 6.2 g/dL (6.3-8.2) L 01/20/17 04:54 Albumin 3.1 g/dL (3.9-5) L 01/20/17 04:54 Albumin/Globulin Ratio 1.0 % 01/20/17 04:54 Triglycerides 128 mg/dL (2-149) 01/19/17 19:24 Cholesterol 93 mg/dL (50-199) 01/19/17 19:24 LDL Cholesterol Direct 49 mg/dL (50-130) L 01/19/17 19:24 HDL Cholesterol 19 mg/dL (40-59) L 01/19/17 19:24 Cholesterol/HDL Ratio 4.89 % 01/19/17 19:24 - Imaging and Cardiology EKG: image reviewed (Sinus tach, with inferior and septal ischemia- indeterminate age)
[2017-01-20] MEDS ORDERED: NACL ONE (14:57)
--- NOTE | 2017-01-20 15:09 | Consultation ---
History of Present Illness Consult date: 01/20/17 Consult reason: chest pain History of present illness: Patient's a 61-year-old man with coronary artery disease. A month ago, he underwent coronary stent placement at [facility] for an acute myocardial infarction. He states he has been doing well at home until he presented to this emergency room with complaints of "pressure" in his chest, denied actual chest pain or unusual shortness of breath. He is fully compliant with his Plavix and aspirin dual oral antiplatelet therapy. He admits to being unusually anxious since his SD month ago. He states that he often has to have a neighbor friend come sit with him in his house because he often feels nervous. He admits to having made several EMT calls, which have resulted in the outside production inspector just come into the house to reassure him that he was okay. His current chest pain is poorly characterized left-sided, nonexertional, and was not reminiscent of his anginal chest pain a month ago when he had his SD. Serial ECGs in the hospital showed a normal sinus rhythm, evidence of an old inferior myocardial infarction, otherwise no acute changes. Cardiac enzymes show an isolated very mild rise in troponin. Since the initial event, the patient has had no further chest pain hospital, and he was ordered for a Persantin thallium stress test today. The stress test has been completed and the results are pending. Past History Past Medical History: CAD, hypertension Medications and Allergies Allergies Allergy/AdvReac Type Severity Reaction Status Date / Time Penicillins AdvReac Hives Verified 01/18/17 14:28 Home Medications Medication Instructions Recorded Confirmed Last Taken Type Clopidogrel [Plavix] 75 mg PO QDAY 01/18/17 01/19/17 01/19/17 History Furosemide [Lasix TAB] 40 mg PO QDAY 01/18/17 01/19/17 01/19/17 History Lovastatin [Altoprev] 40 mg PO QPM 01/18/17 01/19/17 01/19/17 History Metoprolol [Lopressor TAB] 50 mg PO DAILY 01/18/17 01/19/17 01/19/17 History Sulfamethoxazole/Trimethoprim 1 each PO BID #20 tablet 01/18/17 01/19/17 Rx [Bactrim DS TAB] traMADol [Ultram] 50 mg PO Q4HR PRN 01/18/17 01/19/17 01/19/17 History Active Meds: Active Medications Acetaminophen (Tylenol) 650 mg PO Q4H PRN PRN Reason: Pain MILD(1-3)/Fever >100.5/SAUCEDO Bisacodyl (Dulcolax) 10 mg MO QDAY PRN PRN Reason: Constipation unrelieved by MOM Clopidogrel Bisulfate (Plavix) 75 mg PO QDAY [facility] Enoxaparin Sodium (Lovenox) 40 mg SUB-Q QDAY@2200 AMRIK Furosemide (Lasix) 40 mg PO QDAY [facility] Hydromorphone HCl (Dilaudid) 0.5 mg IV Q3H PRN PRN Reason: Pain , Severe (7-10) Magnesium Hydroxide (Milk Of Magnesia) 30 ml PO Q4H PRN PRN Reason: Constipation Metoprolol Tartrate (Lopressor) 50 mg PO DAILY [facility] Ondansetron HCl (Zofran) 4 mg IV Q8H PRN PRN Reason: N/V unrelieved by Reglan Simvastatin (Zocor) 20 mg PO QHS [facility] Sodium Chloride (Sodium Chloride Flush Syringe 10 Ml) 10 ml IV PRN PRN PRN Reason: LINE FLUSH Tramadol HCl (Ultram) 50 mg PO Q4HR PRN PRN Reason: Pain Trimethoprim/Sulfamethoxazole (Bactrim Ds) 1 each PO BID [facility] Last Admin: 01/19/17 23:49 Dose: 1 each Zolpidem Tartrate (Ambien) 5 mg PO QHS PRN PRN Reason: Insomnia Review of Systems Cardiovascular: chest pain, shortness of breath, no orthopnea, no palpitations, no rapid/irregular heart beat, no edema, no syncope, no lightheadedness Physical Examination Vital Signs BP Pulse Ox 154/102 97 01/19/17 18:20 01/19/17 18:20 General appearance: no acute distress HEENT: Positive: PERRL Neck: Positive: neck supple Cardiac: Positive: Reg Rate and Rhythm Lungs: Positive: Decreased Breath Sounds Neuro: Positive: Grossly Intact Abdomen: Positive: Soft Male genitourinary: Positive: deferred Skin: Positive: Clear Extremities: Present: normal Results 01/20/17 04:54 01/20/17 04:54 Cardiac Enzymes 01/19/17 01/20/17 01/20/17 Range/Units 22:30 04:54 04:54 AST 105 H (5-40) units/L CK-MB (CK-2) 2.2 2.1 (0.0-4.0) ng/mL CBC 01/19/17 01/20/17 Range/Units 23:58 04:54 WBC 8.7 9.3 (4.5-11.0) K/mm3 RBC 4.35 4.16 (3.65-5.03) M/mm3 Hgb 12.1 12.1 (11.8-15.2) gm/dl Hct 38.4 36.4 (35.5-45.6) % Plt Count 400 392 (140-440) K/mm3 Lymph # 2.3 2.8 (1.2-5.4) K/mm3 Pickett # 0.8 0.8 (0.0-0.8) K/mm3 Eos # 0.1 0.2 (0.0-0.4) K/mm3 Baso # 0.1 0.1 (0.0-0.1) K/mm3 Comprehensive Metabolic Panel 01/19/17 01/20/17 Range/Units 22:30 04:54 Sodium 138 141 (137-145) mmol/L Potassium 4.8 4.9 (3.6-5.0) mmol/L Chloride 100.6 101.2 (98-107) mmol/L Carbon Dioxide 20 L 24 (22-30) mmol/L BUN 37 H 41 H (9-20) mg/dL Creatinine 1.1 1.2 (0.8-1.5) mg/dL Glucose 131 H 90 (75-100) mg/dL Calcium 8.7 8.9 (8.4-10.2) mg/dL AST 105 H (5-40) units/L ALT 113 H (7-56) units/L Alkaline Phosphatase 150 H (35-129) units/L Total Protein 6.2 L (6.3-8.2) g/dL Albumin 3.1 L (3.9-5) g/dL EKG interpretations - Telemetry EKG Rhythm: Sinus Rhythm Assessment and Plan - Patient Problems (1) Chest pain Current Visit: Yes Status: Acute Qualifiers: Chest pain type: C Ischemic chest pain type: I Plan to address problem: Patient's chest pain is atypical, and serial ECGs are not consistent with subacute stent thrombosis or acute coronary syndrome. The chest pain is not reminiscent of his prior angina. He has been fully compliant with dual oral antiplatelet therapy. We will continue medical therapy including dual antiplatelet therapy and risk factor modification. We'll await results of thallium stress. (2) Anxiety Current Visit: Yes Status: Acute Plan to address problem: We'll defer to the medical service for further workup for management of the patient's stated feeling of anxiety.
[2017-01-20 15:31] LABS: Creatine Kinase MB 2.7 ng/mL (0.0-4.0)
--- NOTE | 2017-01-20 16:34 | Cat Scan Report ---
CT angiography of the chest including 3-D reconstructed images. History: Chest pain elevated d-dimer. Findings: There are at least 2 pulmonary emboli in the tertiary branches to the right lower lobe. There may be a third smaller emboli difficult to confirm in the medial aspect of the right lower lobe. There are bilateral pleural effusions and cardiomegaly, and fluid is seen in the interlobar fissure on the left. Impression: 2 and possibly 3 small pulmonary emboli in the tertiary branches of the right lower lobe. 2. Cardiomegaly with bilateral pleural effusions and fluid in the fissures as described. Comment: These findings were given by telephone to the patient's nurse Ina at 4:30 PM on January 20, 2017. Code purple.
--- NOTE | 2017-01-20 16:44 | Consultation ---
History of Present Illness - Reason for Consult Consult date: 01/20/17 - History of Present Illness This gentleman is seen in consult for peripheral vascular disease and a left peroneal deep vein thrombosis. Approximately 3 months ago he saw what he thought was a bruise on his left great toe. He went to a physician near where he was staying to have it evaluated. He ended up with a left great toe amputation, however he cannot remember the physician's name. Approximately 1 week later he had a massive PR and was airlifted to [facility]. He states that at that time he had both coronary and left lower extremity arterial stents placed, but he cannot recall exactly where in the left lower extremity or the name of the physician. After a prolonged hospital stay, he was discharged to a rehabilitation facility. He left the rehabilitation facility because he was not satisfied with their services. He is otherwise homeless and then went to stay at a motel. When he was at the motel over the last day or so he developed acute shortness of breath and called EMS. They brought him to the [facility] ER. Thus far, a CT angiography to evaluate for pulmonary embolism has been performed , no large pulmonary emboli are seen, although there are possible small emboli and tertiary pulmonary arterial branches. A lower extremity Doppler revealed a left peroneal DVT. The above-knee veins are otherwise patent. He currently complains of mild shortness of breath. However, he has no complaints of leg pain, and is generally able to walk as far as he wants to with a walker. Past History Past Medical History: CAD, hypertension Medications and Allergies Allergies Allergy/AdvReac Type Severity Reaction Status Date / Time Penicillins AdvReac Hives Verified 01/18/17 14:28 Home Medications Medication Instructions Recorded Confirmed Last Taken Type Clopidogrel [Plavix] 75 mg PO QDAY 01/18/17 01/19/17 01/19/17 History Furosemide [Lasix TAB] 40 mg PO QDAY 01/18/17 01/19/17 01/19/17 History Lovastatin [Altoprev] 40 mg PO QPM 01/18/17 01/19/17 01/19/17 History Metoprolol [Lopressor TAB] 50 mg PO DAILY 01/18/17 01/19/17 01/19/17 History Sulfamethoxazole/Trimethoprim 1 each PO BID #20 tablet 01/18/17 01/19/17 Rx [Bactrim DS TAB] traMADol [Ultram] 50 mg PO Q4HR PRN 01/18/17 01/19/17 01/19/17 History Active Meds: Active Medications Acetaminophen (Tylenol) 650 mg PO Q4H PRN PRN Reason: Pain MILD(1-3)/Fever >100.5/SAUCEDO Bisacodyl (Dulcolax) 10 mg [place] QDAY PRN PRN Reason: Constipation unrelieved by MOM Clopidogrel Bisulfate (Plavix) 75 mg PO QDAY [facility] Furosemide (Lasix) 40 mg IV 0600,1800 AMRIK Hydromorphone HCl (Dilaudid) 0.5 mg IV Q3H PRN PRN Reason: Pain , Severe (7-10) Heparin Sodium/Sodium Chloride (Heparin/ 0.45% Nacl-25,000 Unit/500 Ml) 25,000 unit in 500 mls @ 18 mls/hr IV TITRATE AMRIK; 900 UNITS/HR PRN Reason: Protocol Magnesium Hydroxide (Milk Of Magnesia) 30 ml PO Q4H PRN PRN Reason: Constipation Metoprolol Tartrate (Lopressor) 50 mg PO DAILY [facility] Ondansetron HCl (Zofran) 4 mg IV Q8H PRN PRN Reason: N/V unrelieved by Reglan Simvastatin (Zocor) 20 mg PO QHS [facility] Sodium Chloride (Sodium Chloride Flush Syringe 10 Ml) 10 ml IV PRN PRN PRN Reason: LINE FLUSH Tramadol HCl (Ultram) 50 mg PO Q4HR PRN PRN Reason: Pain Trimethoprim/Sulfamethoxazole (Bactrim Ds) 1 each PO BID [facility] Last Admin: 01/19/17 23:49 Dose: 1 each Warfarin Sodium (Coumadin Pharmacy To Dose) 1 each PO PKCONSULT ONE PRN Reason: Protocol Stop: 01/20/17 15:16 Zolpidem Tartrate (Ambien) 5 mg PO QHS PRN PRN Reason: Insomnia Exam - Constitutional Vitals: Temp Pulse Resp BP Pulse Ox 97.4 F L 115 H 18 139/97 94 01/20/17 08:54 01/20/17 11:28 01/20/17 08:54 01/20/17 11:28 01/20/17 08:54 - Extremities Extremity abnormal: edema, pulses diminished Results - Labs CBC & Chem 7: 01/20/17 04:54 01/20/17 04:54 Labs: Abnormal lab results 01/19/17 01/19/17 01/19/17 Range/Units 22:30 22:30 22:31 RDW (13.2-15.2) % Leon % (Auto) (0.0-7.3) % Carbon Dioxide 20 L (22-30) mmol/L BUN 37 H (9-20) mg/dL Glucose 131 H (75-100) mg/dL AST (5-40) units/L ALT (7-56) units/L Alkaline Phosphatase (35-129) units/L Total Creatine Kinase 28 L (55-170) units/L CK-MB (CK-2) Rel Index 7.8 H (0-4) Troponin T 0.274 H* (0.00-0.029) ng/mL Total Protein (6.3-8.2) g/dL Albumin (3.9-5) g/dL 01/19/17 01/19/17 01/20/17 Range/Units 23:58 23:58 04:54 RDW 17.3 H 17.0 H (13.2-15.2) % Leon % (Auto) 8.9 H 8.6 H (0.0-7.3) % Carbon Dioxide (22-30) mmol/L BUN (9-20) mg/dL Glucose (75-100) mg/dL AST (5-40) units/L ALT (7-56) units/L Alkaline Phosphatase (35-129) units/L Total Creatine Kinase (55-170) units/L CK-MB (CK-2) Rel Index (0-4) Troponin T 0.298 H* (0.00-0.029) ng/mL Total Protein (6.3-8.2) g/dL Albumin (3.9-5) g/dL 01/20/17 01/20/17 01/20/17 Range/Units 04:54 04:54 04:54 RDW (13.2-15.2) % Leon % (Auto) (0.0-7.3) % Carbon Dioxide (22-30) mmol/L BUN 41 H (9-20) mg/dL Glucose (75-100) mg/dL AST 105 H (5-40) units/L ALT 113 H (7-56) units/L Alkaline Phosphatase 150 H (35-129) units/L Total Creatine Kinase 24 L (55-170) units/L CK-MB (CK-2) Rel Index 8.7 H (0-4) Troponin T 0.313 H* (0.00-0.029) ng/mL Total Protein 6.2 L (6.3-8.2) g/dL Albumin 3.1 L (3.9-5) g/dL 01/20/17 Range/Units 13:47 RDW (13.2-15.2) % Leon % (Auto) (0.0-7.3) % Carbon Dioxide (22-30) mmol/L BUN (9-20) mg/dL Glucose (75-100) mg/dL AST (5-40) units/L ALT (7-56) units/L Alkaline Phosphatase (35-129) units/L Total Creatine Kinase 38 L (55-170) units/L CK-MB (CK-2) Rel Index 7.1 H (0-4) Troponin T (0.00-0.029) ng/mL Total Protein (6.3-8.2) g/dL Albumin (3.9-5) g/dL Assessment and Plan This is a 61-year-old gentleman with a complex medical history including PR, possible left lower extremity arterial stents, and left great toe amputation. He presents to the hospital currently with shortness of breath and was found to have 2-3 small subsegmental pulmonary emboli and a left peroneal DVT. He has been placed on a heparin drip. He states he has been diligent with taking Plavix on a daily basis prior to coming to the hospital. His left great toe surgical bed does not appear healthy. There are flecks of granulation tissue and small foci of eschar and ischemia. He states that the wound bed was recently debrided in the emergency room, but he does not have a specific animal ride manager. We will await arterial duplex results. However, given the patient's stated need to leave the hospital by tomorrow afternoon in order to pay his rent, it is unlikely that any intervention will take place, as he does not have any emergent vascular needs at this time. Should he end up requiring vascular intervention after discharge, he can follow-up with his original interventional list from [facility]. However, as the patient is currently homeless and uninsured, outpatient scheduling may be difficult. We will follow this patient with you while he is an inpatient. Podiatry consult also recommended.
[2017-01-20] MEDS: BACTRIM DS PO SCH ×2 (17:41→21:40)
[2017-01-20] MEDS: LOPRESSOR PO SCH (18:13)
[2017-01-20] MEDS: PLAVIX PO SCH (18:14)
[2017-01-20] MEDS: LASIX IV SCH (18:14)
[2017-01-20 21:02] LABS: INR 1.48 (0.87-1.13); Partial Thromboplastin Time 26.7 Sec. (24.2-36.6)
[2017-01-20 21:15] LABS: Hemoglobin 13.4 gm/dl (11.8-15.2)
[2017-01-20 21:16] LABS: Hematocrit 43.8 % (35.5-45.6)
[2017-01-20] MEDS: AMBIEN PO PRN (21:40)
[2017-01-20] MEDS ORDERED: ZOCOR PO SCH (22:00)
[2017-01-20] MEDS ORDERED: LOVENOX SUB-Q SCH (22:00)
[2017-01-20] MEDS ORDERED: ATIVAN IV PRN (23:48)
[2017-01-21] MEDS: LASIX IV SCH ×2 (05:41→17:42)
--- NOTE | 2017-01-21 10:59 | Vascular Lab Report ---
LOWER EXTREMITY ARTERIAL DUPLEX: REASON FOR EXAM: Peripheral arterial disease. COMMENTS ON THE RIGHT: Monophasic waveforms are seen proximally. Monophasic waveforms are seen distally. All velocities are low . No focal significant plaque is identified. Findings are consistent with abnormal perfusion. Findings are inconsistent with the ability to heal distal wounds. COMMENTS ON THE LEFT: Monophasic waveforms are seen proximally. Monophasic waveforms are seen distally. All velocities are low. No focal significant plaque is identified. Findings are consistent with abnormal perfusion. Findings are inconsistent with the ability to heal distal wounds. IMPRESSION: RIGHT: Inflow occlusive disease . LEFT:Inflow occlusive disease.
--- NOTE | 2017-01-21 11:00 | Vascular Lab Report ---
LOWER EXTREMITY ARTERIAL PHYSIOLOGIC STUDY: REASON FOR EXAM: Peripheral arterial disease. COMMENTS ON THE RIGHT: Ankle brachial index is 0.61. This value is abnormal. Pulse volume recording at the level of the ankle is abnormal. Exercise testing was not done. COMMENTS ON THE LEFT: Ankle brachial index is 1.07. This value is normal. Pulse volume recording at the level of the ankle is normal. Exercise testing was not done. IMPRESSION: RIGHT: Moderate arterial occlusive disease LEFT:No hemodynamically significant arterial disease.
--- NOTE | 2017-01-21 11:11 | Vascular Lab Report ---
LOWER EXTREMITY VENOUS DUPLEX: REASON FOR EXAM: Edema of the lower extremities. COMMENTS ON THE RIGHT: All veins visualized are freely compressible without evidence of internal echogenicity. Flow is spontaneous and phasic throughout. COMMENTS ON THE LEFT: Acute deep venous thrombosis noted in the peroneal vein. The remaining veins visualized are freely compressible without evidence of internal echogenicity. Spontaneous and phasic flow is present proximally. IMPRESSION: Deep venous thrombosis in the left lower extremity
[2017-01-21] MEDS: HEPARIN/ 0.45% NACL-25,000 UNIT/500 ML 25,000 UNIT/500 ML BAG IV SCH (11:28)
[2017-01-21] MEDS: LOPRESSOR PO SCH (11:29)
[2017-01-21] MEDS: BACTRIM DS PO SCH ×2 (11:31→21:38)
[2017-01-21] MEDS: PLAVIX PO SCH (11:34)
--- NOTE | 2017-01-21 11:57 | Progress Note ---
Assessment and Plan 61-year-old male with infrapopliteal DVT and left lower extremity first digit open wound. Recommend 3-6 months of anticoagulation for infrapopliteal DVT. Nonpalpable left pedal pulses. Reviewed arterial duplex. Patient will require CT of the abdomen, pelvis, with runoff to further assess his arterial anatomy. This will be performed in order to determine if the patient can have a retrograde right femoral access versus an antegrade left femoral access and to assess tibial flow which I suspect is compromised given the low velocities in the left tibial vessels. Patient will need to be medically stabilized prior to any vascular interventions. Subjective Date of service: 01/21/17 Interval history: Left lower extremity first digit amputation with poor healing wound base with edema both lower extremities. Nonpalpable left-sided pedal pulses. Reviewed arterial ultrasound. Velocities in the tibial vessels are incredibly low despite adequate LUCRECIA which may be secondary to noncompliant vessels. Patient is altered, in restraints, and on a nonrebreather. Objective - Constitutional Vitals: Vital Signs - 12hr 01/21/17 01/21/17 01/21/17 00:20 01:04 04:35 Temperature 97.5 F L 97.5 F L Pulse Rate 98 H Pulse Rate [ 104 H 100 H Left Radial] Pulse Rate [ 104 H 100 H Right Radial] Respiratory 22 24 Rate Blood Pressure 132/78 125/93 [Right Arm] O2 Sat by Pulse 99 99 Oximetry 01/21/17 01/21/17 01/21/17 08:06 10:00 11:29 Temperature 97.8 F Pulse Rate 98 H Pulse Rate [ 101 H Left Radial] Pulse Rate [ 103 H Right Radial] Respiratory 18 Rate Blood Pressure 115/86 [Right Arm] O2 Sat by Pulse 94 100 Oximetry General appearance: Present: no acute distress, other (altered mental status) - EENT ENT: hearing intact - Respiratory Respiratory effort: labored (on nonrebreather) Extremities: abnormal (see subjective) - Psychiatric Psychiatric: other (altered mental status) - Labs CBC & Chem 7: 01/20/17 20:29 01/20/17 04:54 Labs: Abnormal lab results 01/20/17 01/20/17 01/20/17 Range/Units 13:47 13:47 20:29 PT 18.7 H (12.2-14.9) Sec. INR 1.48 H (0.87-1.13) Total Creatine Kinase 38 L (55-170) units/L CK-MB (CK-2) Rel Index 7.1 H (0-4) Troponin T 0.245 H* D (0.00-0.029) ng/mL
--- NOTE | 2017-01-21 14:37 | Progress Note ---
Assessment and Plan Assessment and plan: 61-year-old male with history of hypertension, congestive heart failure with recent acute CO in November 2016 pw with chest pressure, ROSARIO, orthopnea. Nonstemi, type 2 -cardiology consult appreciated -start heparin drip -chest pain is atypical and not similar to how he felt when he had CO in november, most likely due to PE -continue medical management, fup stress test Acute hypoxic respiratory failure -likely due to CHF and PE -rx underlying cause, continue oxygen supplementation acute on chronic Congestive heart failure, sytolic Stage C ischemic cardiomyopathy with LVEF 8% and akinesis of the apical and anterior salcido consistent with previous transmural CO in the LAD distribution. Continue Lasix, optimize cardiac meds -echo showsef of 8%, end stage CHF -cardiology following Hypertension continue BP meds Hyperlipidemia Continue statins Peripheral Arterial disease vascular surgery input appreciated Reviewed arterial duplex. Patient will require CT of the abdomen, pelvis, with runoff to further assess his arterial anatomy. This will be performed in order to determine if the patient can have a retrograde right femoral access versus an antegrade left femoral access and to assess tibial flow which I suspect is compromised given the low velocities in the left tibial vessels. Patient will need to be medically stabilized prior to any vascular interventions. * Obtain CT A/P will run off * Left big toe stump will need to be debrided LLE DVT and PE -heparin drip was ordered at 4pm yesterday, but for no clear reason, was never given by the nursing staff -Spoke with his RN, Nicolasa today, and she will start the drip -warfarin was initiated -Also reported the problem to steel manager and head of nursing. DVT prophylaxis fully anticoagulated History Interval history: still having intermittent chest pressure, 6/10, ROSARIO and orthopnea. LLE Swelling became hypoxic last night and was put on High flow oxygen Hospitalist Physical - Physical exam Narrative exam: General: Patient appears well in no distress HEENT: MMM, EOMI cardiac: S1-S2 heard lungs: clear to auscultation, abdomen: soft, nontender, nondistended bowel sounds positive extremities: 2 plus LLE pitting edema, sp L big toe amputation with yellow necrotic wound ulcer at the stump pedal pulse not palpable Skin: no rash or lesion Neuro: no focal deficit Psych: appropriate behavior and mood, cognition intact - Constitutional Vitals: Temp Pulse Resp BP Pulse Ox 97.8 F 98 H 16 115/86 95 01/21/17 08:06 01/21/17 11:29 01/21/17 13:55 01/21/17 08:06 01/21/17 13:55 General appearance: Present: no acute distress, other (altered mental status) Results - Labs CBC & Chem 7: 01/20/17 20:29 01/20/17 04:54 Labs: Laboratory Last Values WBC 9.3 K/mm3 (4.5-11.0) 01/20/17 04:54 RBC 4.16 M/mm3 (3.65-5.03) 01/20/17 04:54 Hgb 13.4 gm/dl (11.8-15.2) 01/20/17 20:29 Hct 43.8 % (35.5-45.6) D 01/20/17 20:29 MCV 87 fl (84-94) 01/20/17 04:54 MCH 29 pg (28-32) 01/20/17 04:54 MCHC 33 % (32-34) 01/20/17 04:54 RDW 17.0 % (13.2-15.2) H 01/20/17 04:54 Plt Count 415 K/mm3 (140-440) 01/20/17 20:29 Lymph % (Auto) 30.1 % (13.4-35.0) 01/20/17 04:54 [place] % (Auto) 8.6 % (0.0-7.3) H 01/20/17 04:54 Eos % (Auto) 1.9 % (0.0-4.3) 01/20/17 04:54 Baso % (Auto) 1.0 % (0.0-1.8) 01/20/17 04:54 Lymph # 2.8 K/mm3 (1.2-5.4) 01/20/17 04:54 [place] # 0.8 K/mm3 (0.0-0.8) 01/20/17 04:54 Eos # 0.2 K/mm3 (0.0-0.4) 01/20/17 04:54 Baso # 0.1 K/mm3 (0.0-0.1) 01/20/17 04:54 Seg Neutrophils % 58.4 % (40.0-70.0) 01/20/17 04:54 Seg Neutrophils # 5.4 K/mm3 (1.8-7.7) 01/20/17 04:54 PT 18.7 Sec. (12.2-14.9) H 01/20/17 20:29 INR 1.48 (0.87-1.13) H 01/20/17 20:29 APTT 26.7 Sec. (24.2-36.6) 01/20/17 20:29 D-Dimer 3206.82 ng/mlDDU (0-234) H 01/19/17 20:26 Sodium 141 mmol/L (137-145) 01/20/17 04:54 Potassium 4.9 mmol/L (3.6-5.0) 01/20/17 04:54 Chloride 101.2 mmol/L (98-107) 01/20/17 04:54 Carbon Dioxide 24 mmol/L (22-30) 01/20/17 04:54 Anion Gap 21 mmol/L 01/20/17 04:54 BUN 41 mg/dL (9-20) H 01/20/17 04:54 Creatinine 1.2 mg/dL (0.8-1.5) 01/20/17 04:54 Estimated GFR > 60 ml/min 01/20/17 04:54 BUN/Creatinine Ratio 34.16 % 01/20/17 04:54 Glucose 90 mg/dL (75-100) 01/20/17 04:54 Hemoglobin A1c 5.7 % (4-6) 01/19/17 23:58 Calcium 8.9 mg/dL (8.4-10.2) 01/20/17 04:54 Total Bilirubin 0.90 mg/dL (0.1-1.2) 01/20/17 04:54 AST 105 units/L (5-40) H 01/20/17 04:54 ALT 113 units/L (7-56) H 01/20/17 04:54 Alkaline Phosphatase 150 units/L (35-129) H 01/20/17 04:54 Total Creatine Kinase 38 units/L (55-170) L 01/20/17 13:47 CK-MB (CK-2) 2.7 ng/mL (0.0-4.0) 01/20/17 13:47 CK-MB (CK-2) Rel Index 7.1 (0-4) H 01/20/17 13:47 Troponin T 0.245 ng/mL (0.00-0.029) H* D 01/20/17 13:47 NT-Pro-B Natriuret Pep 15616 pg/mL (0-900) H 01/19/17 19:24 Total Protein 6.2 g/dL (6.3-8.2) L 01/20/17 04:54 Albumin 3.1 g/dL (3.9-5) L 01/20/17 04:54 Albumin/Globulin Ratio 1.0 % 01/20/17 04:54 Triglycerides 128 mg/dL (2-149) 01/19/17 19:24 Cholesterol 93 mg/dL (50-199) 01/19/17 19:24 LDL Cholesterol Direct 49 mg/dL (50-130) L 01/19/17 19:24 HDL Cholesterol 19 mg/dL (40-59) L 01/19/17 19:24 Cholesterol/HDL Ratio 4.89 % 01/19/17 19:24 - Imaging and Cardiology CT scan - chest: image reviewed (small PEs are seen) Venous US: image reviewed (LLE dvt)
--- NOTE | 2017-01-21 14:41 | Progress Note ---
Assessment and Plan Chest pain is atypical negative MPI this admission Acute DVT/PE initiated on IV heparin Pleural effusion Ischemic Cardiomyopathy EF <10% Hx of recent MD/CAD fully compliant with dual oral antiplatelet therapy per pt. Anxiety Recommendations: Medical therapy for his cardiomyopathy and coronary artery disease. Subjective Date of service: 01/21/17 Interval history: Venturi mask in place. No distress noted. Objective Vital Signs Temp Pulse Pulse Pulse Resp BP Pulse Ox 01/21/17 13:55 16 95 01/21/17 11:29 98 H 01/21/17 10:00 100 01/21/17 08:06 97.8 F 101 H 103 H 18 115/86 94 01/21/17 04:35 97.5 F L 100 H 100 H 24 125/93 99 01/21/17 01:04 98 H 01/21/17 00:20 97.5 F L 104 H 104 H 22 132/78 99 01/20/17 23:11 96 01/20/17 20:50 100 01/20/17 19:42 97.6 F 103 H 103 H 20 129/80 100 01/20/17 16:58 100 - Physical Examination General: No Apparent Distress Cardiac: Positive: Reg Rate and Rhythm - Labs and Meds Cardiac Enzymes 01/20/17 Range/Units 13:47 CK-MB (CK-2) 2.7 (0.0-4.0) ng/mL Coagulation 01/20/17 Range/Units 20:29 PT 18.7 H (12.2-14.9) Sec. INR 1.48 H (0.87-1.13) APTT 26.7 (24.2-36.6) Sec. CBC 01/20/17 Range/Units 20:29 Hgb 13.4 (11.8-15.2) gm/dl Hct 43.8 D (35.5-45.6) % Plt Count 415 (140-440) K/mm3 - Imaging and Cardiology EKG: image reviewed (Sinus tach, with inferior and septal ischemia- indeterminate age)
[2017-01-21] MEDS: COUMADIN PO SCH (17:41)
[2017-01-21] MEDS ORDERED: HEPARIN 10,000 UNITS/10 ML IV ONE (19:00)
[2017-01-21] MEDS: AMBIEN PO PRN (21:38)
[2017-01-22 01:46] LABS: BUN/Creatinine Ratio 33.33; Calcium 8.4 mg/dL (8.4-10.2); Potassium 4.3 mmol/L (3.6-5.0)
[2017-01-22] MEDS: LASIX IV SCH (05:46)
[2017-01-22 06:58] LABS: Hematocrit 38.1 % (35.5-45.6); Hemoglobin 12.2 gm/dl (11.8-15.2)
[2017-01-22 07:12] LABS: INR 1.82 (0.87-1.13)
[2017-01-22] MEDS ORDERED: NACL ONE (07:37)
--- NOTE | 2017-01-22 09:55 | Progress Note ---
Assessment and Plan - Patient Problems (1) Chest pain Current Visit: Yes Status: Acute Qualifiers: Chest pain type: C Ischemic chest pain type: I Plan to address problem: Persantin thallium stress test done on this admission demonstrates a severe dilated cardiomyopathy and a large fixed apical and septal wall defect without reversible ischemia. This defect is consistent with his recent large myocardial infarction. We will continue medical therapy for his coronary artery disease and ischemic cardiomyopathy. (2) Anxiety Current Visit: Yes Status: Acute Subjective Date of service: 01/22/17 Interval history: Patient is in no acute distress. He is undergoing further evaluation and management of DVT PE. Objective Vital Signs Temp Pulse Pulse Pulse Resp BP BP 01/22/17 08:18 97.5 F L 102 H 20 136/99 01/22/17 05:07 97.4 F L 89 0 L 20 126/80 0/0 01/22/17 04:57 99 H 01/22/17 00:08 97.6 F 89 1 L 20 120/81 0/0 01/21/17 22:00 01/21/17 20:41 97.5 F L 91 H 0 L 20 113/76 0/0 01/21/17 16:00 99 H 01/21/17 15:00 01/21/17 14:43 97.7 F 93 H 12 116/80 01/21/17 13:55 16 01/21/17 11:29 98 H 01/21/17 10:00 Pulse Ox 01/22/17 08:18 100 01/22/17 05:07 99 01/22/17 04:57 01/22/17 00:08 98 01/21/17 22:00 100 01/21/17 20:41 99 01/21/17 16:00 01/21/17 15:00 99 01/21/17 14:43 97 01/21/17 13:55 95 01/21/17 11:29 01/21/17 10:00 100 - Physical Examination General: No Apparent Distress HEENT: Positive: PERRL Neck: Positive: neck supple Cardiac: Positive: Reg Rate and Rhythm Lungs: Positive: Decreased Breath Sounds Neuro: Positive: Grossly Intact Abdomen: Positive: Soft Skin: Positive: Clear Extremities: Present: normal - Labs and Meds Coagulation 01/22/17 Range/Units 05:41 PT 22.0 H (12.2-14.9) Sec. INR 1.82 H (0.87-1.13) CBC 01/22/17 Range/Units 05:41 Hgb 12.2 (11.8-15.2) gm/dl Hct 38.1 (35.5-45.6) % Plt Count 277 (140-440) K/mm3 Comprehensive Metabolic Panel 01/22/17 Range/Units 01:05 Sodium 135 L (137-145) mmol/L Potassium 4.3 (3.6-5.0) mmol/L Chloride 98.0 (98-107) mmol/L Carbon Dioxide 21 L (22-30) mmol/L BUN 50 H (9-20) mg/dL Creatinine 1.5 (0.8-1.5) mg/dL Glucose 92 (75-100) mg/dL Calcium 8.4 (8.4-10.2) mg/dL - Imaging and Cardiology EKG: image reviewed (Sinus tach, with inferior and septal ischemia- indeterminate age)
[2017-01-22] MEDS ORDERED: BACTRIM DS PO SCH (10:00)
[2017-01-22] MEDS: TOPROL XL PO SCH (10:05)
[2017-01-22] MEDS: PLAVIX PO SCH (10:05)
[2017-01-22] MEDS: ZESTRIL PO SCH (10:05)
--- NOTE | 2017-01-22 10:11 | Cat Scan Report ---
CTA ABDOMINAL AORTA WITH BILATERAL FEMORAL RUNOFF: 01/22/17 CLINICAL: Absent pulse in the left lower extremity. TECHNIQUE: Volumetric acquisition and 1.25-mm scan reconstructions after the uneventful intravenous injection of 150 cc Omnipaque 350. Consent was obtained prior to administration of contrast. Postprocessing was performed on a 3 workstation and volume rendered images were reviewed. FINDINGS: Aorta:Extensive calcified and noncalcified plaque of the abdominal aorta. Polyp-like focal noncalcified plaque in the aorta just proximal to the renal arteries measures approximately 1 cm. No aneurysm or dissection. Aortic branches:Patent celiac trunk, SMA and PRISCILLA without significant stenosis. Renal arteries:Bilateral high-grade renal artery stenosis with calcifications. There is a single left renal artery but there is at least one arterial collateral to the left kidney. 2 right renal arteries with one very small. The other is larger and stenotic. Iliac arteries:Bilateral common iliac artery plaque. Complete occlusion of the right external iliac artery at its origin and high-grade stenosis of the right internal iliac artery at its origin. The left external iliac artery is patent but there is a least a 50% stenosis of the distal left external iliac artery. The left internal iliac artery is occluded. Femoral arteries:The right common femoral artery is reconstituted by collaterals and is tiny. The right superficial femoral artery is small but there is flow to the knee. The right deep femoral artery is tiny. The left common femoral artery is normal. Approximate 50% stenosis of the distal left superficial femoral artery. Popliteal arteries:Patent. Below the knees:Three-vessel runoff bilaterally. Other findings: Bilateral pleural effusions and moderate ascites. Diverticulosis of the colon. No signs of diverticulitis. Despite bilateral renal artery stenosis, the kidneys are normal size and measured 10.7 cm. IMPRESSION: Extensive atherosclerotic disease as described above. Bilateral iliac artery occlusions and stenoses but arterial flow is patent to the feet.
--- NOTE | 2017-01-22 10:30 | Progress Note ---
Assessment and Plan Assessment and plan: 61-year-old male with history of hypertension, congestive heart failure with recent acute ND in November 2016 pw with chest pressure, ROSARIO, orthopnea. Nonstemi, type 2 -cardiology consult appreciated -start heparin drip -chest pain is atypical and not similar to how he felt when he had ND in november, most likely due to PE -continue medical management -Persantin thallium stress test done on this admission demonstrates a severe dilated cardiomyopathy and a large fixed apical and septal wall defect without reversible ischemia. This defect is consistent with his recent large myocardial infarction. We will continue medical therapy for his coronary artery disease and ischemic cardiomyopathy. Acute hypoxic respiratory failure -likely due to CHF and PE -rx underlying cause, continue oxygen supplementation acute on chronic Congestive heart failure, sytolic Stage C ischemic cardiomyopathy with LVEF 8% and akinesis of the apical and anterior salcido consistent with previous transmural ND in the LAD distribution. Continue Lasix, optimize cardiac meds -echo shows ef of 8%, end stage CHF -cardiology following Hypertension continue BP meds Hyperlipidemia Continue statins Peripheral Arterial disease vascular surgery input appreciated, poor pulses in LLE Reviewed arterial duplex. Patient will require CT of the abdomen, pelvis, with runoff to further assess his arterial anatomy. This will be performed in order to determine if the patient can have a retrograde right femoral access versus an antegrade left femoral access and to assess tibial flow which I suspect is compromised given the low velocities in the left tibial vessels. Patient will need to be medically stabilized prior to any vascular interventions. * Left big toe stump will need to be debrided * CT angiogram of abdomen with lower extremity runoff showed Extensive atherosclerotic disease, bilateral iliac artery occlusions and stenosis both arterial flow is patent to the feet LLE DVT and PE -continue heparin gtt -warfarin was initiated DVT prophylaxis fully anticoagulated History Interval history: chest pain is now resolved, SOB is improved Hospitalist Physical - Physical exam Narrative exam: General: Patient appears well in no distress HEENT: MMM, EOMI cardiac: S1-S2 heard lungs: clear to auscultation, abdomen: soft, nontender, nondistended bowel sounds positive extremities: 2 plus LLE pitting edema, sp L big toe amputation with yellow necrotic wound ulcer at the stump pedal pulse not palpable Skin: no rash or lesion Neuro: no focal deficit Psych: appropriate behavior and mood, cognition intact - Constitutional Vitals: Temp Pulse Resp BP Pulse Ox 97.5 F L 102 H 20 136/99 100 01/22/17 08:18 01/22/17 08:18 01/22/17 08:18 01/22/17 08:18 01/22/17 08:18 General appearance: Present: no acute distress, other (altered mental status) Results - Labs CBC & Chem 7: 01/22/17 05:41 01/22/17 01:05 Labs: Laboratory Last Values WBC 9.3 K/mm3 (4.5-11.0) 01/20/17 04:54 RBC 4.16 M/mm3 (3.65-5.03) 01/20/17 04:54 Hgb 12.2 gm/dl (11.8-15.2) 01/22/17 05:41 Hct 38.1 % (35.5-45.6) 01/22/17 05:41 MCV 87 fl (84-94) 01/20/17 04:54 MCH 29 pg (28-32) 01/20/17 04:54 MCHC 33 % (32-34) 01/20/17 04:54 RDW 17.0 % (13.2-15.2) H 01/20/17 04:54 Plt Count 277 K/mm3 (140-440) 01/22/17 05:41 Lymph % (Auto) 30.1 % (13.4-35.0) 01/20/17 04:54 [place] % (Auto) 8.6 % (0.0-7.3) H 01/20/17 04:54 Eos % (Auto) 1.9 % (0.0-4.3) 01/20/17 04:54 Baso % (Auto) 1.0 % (0.0-1.8) 01/20/17 04:54 Lymph # 2.8 K/mm3 (1.2-5.4) 01/20/17 04:54 [place] # 0.8 K/mm3 (0.0-0.8) 01/20/17 04:54 Eos # 0.2 K/mm3 (0.0-0.4) 01/20/17 04:54 Baso # 0.1 K/mm3 (0.0-0.1) 01/20/17 04:54 Seg Neutrophils % 58.4 % (40.0-70.0) 01/20/17 04:54 Seg Neutrophils # 5.4 K/mm3 (1.8-7.7) 01/20/17 04:54 PT 22.0 Sec. (12.2-14.9) H 01/22/17 05:41 INR 1.82 (0.87-1.13) H 01/22/17 05:41 APTT 26.7 Sec. (24.2-36.6) 01/20/17 20:29 D-Dimer 3206.82 ng/mlDDU (0-234) H 01/19/17 20:26 Heparin Anti-Xa Level 0.12 U.I./ml (0.3-0.7) L 01/22/17 00:58 Sodium 135 mmol/L (137-145) L 01/22/17 01:05 Potassium 4.3 mmol/L (3.6-5.0) 01/22/17 01:05 Chloride 98.0 mmol/L (98-107) 01/22/17 01:05 Carbon Dioxide 21 mmol/L (22-30) L 01/22/17 01:05 Anion Gap 20 mmol/L 01/22/17 01:05 BUN 50 mg/dL (9-20) H 01/22/17 01:05 Creatinine 1.5 mg/dL (0.8-1.5) 01/22/17 01:05 Estimated GFR 47 ml/min 01/22/17 01:05 BUN/Creatinine Ratio 33.33 % 01/22/17 01:05 Glucose 92 mg/dL (75-100) 01/22/17 01:05 Hemoglobin A1c 5.7 % (4-6) 01/19/17 23:58 Calcium 8.4 mg/dL (8.4-10.2) 01/22/17 01:05 Total Bilirubin 0.90 mg/dL (0.1-1.2) 01/20/17 04:54 AST 105 units/L (5-40) H 01/20/17 04:54 ALT 113 units/L (7-56) H 01/20/17 04:54 Alkaline Phosphatase 150 units/L (35-129) H 01/20/17 04:54 Total Creatine Kinase 38 units/L (55-170) L 01/20/17 13:47 CK-MB (CK-2) 2.7 ng/mL (0.0-4.0) 01/20/17 13:47 CK-MB (CK-2) Rel Index 7.1 (0-4) H 01/20/17 13:47 Troponin T 0.245 ng/mL (0.00-0.029) H* D 01/20/17 13:47 NT-Pro-B Natriuret Pep 07932 pg/mL (0-900) H 01/19/17 19:24 Total Protein 6.2 g/dL (6.3-8.2) L 01/20/17 04:54 Albumin 3.1 g/dL (3.9-5) L 01/20/17 04:54 Albumin/Globulin Ratio 1.0 % 01/20/17 04:54 Triglycerides 128 mg/dL (2-149) 01/19/17 19:24 Cholesterol 93 mg/dL (50-199) 01/19/17 19:24 LDL Cholesterol Direct 49 mg/dL (50-130) L 01/19/17 19:24 HDL Cholesterol 19 mg/dL (40-59) L 01/19/17 19:24 Cholesterol/HDL Ratio 4.89 % 01/19/17 19:24 - Imaging and Cardiology CT scan - abdomen: image reviewed (Shows severe PAD, in LLE but there is blood flow all the way to the foot)
[2017-01-22] MEDS: COUMADIN PO SCH (18:41)
[2017-01-22] MEDS: HEPARIN/ 0.45% NACL-25,000 UNIT/500 ML 25,000 UNIT/500 ML BAG IV SCH (21:06)
[2017-01-22 21:14] LABS: Calcium 7.9 mg/dL (8.4-10.2); Chloride 97.7 mmol/L (98-107); Potassium 3.9 mmol/L (3.6-5.0)
[2017-01-22] MEDS: ULTRAM PO PRN (21:24)
[2017-01-23] MEDS: HEPARIN/ 0.45% NACL-25,000 UNIT/500 ML 25,000 UNIT/500 ML BAG IV SCH ×2 (01:40→13:01)
[2017-01-23] MEDS: TOPROL XL PO SCH (09:49)
[2017-01-23] MEDS: ZESTRIL PO SCH (09:50)
[2017-01-23 09:53] LABS: INR 1.41 (0.87-1.13)
[2017-01-23] MEDS ORDERED: LASIX IV SCH (10:00)
[2017-01-23] MEDS: PLAVIX PO SCH (10:07)
--- NOTE | 2017-01-23 11:22 | Progress Note ---
Assessment and Plan Assessment and plan: 61-year-old male with history of hypertension, congestive heart failure with recent acute AR in November 2016 pw with chest pressure, ROSARIO, orthopnea. Nonstemi, type 2 -cardiology consult appreciated -start heparin drip -chest pain is atypical and not similar to how he felt when he had AR in november, most likely due to PE -continue medical management -Persantin thallium stress test done on this admission demonstrates a severe dilated cardiomyopathy and a large fixed apical and septal wall defect without reversible ischemia. This defect is consistent with his recent large myocardial infarction. We will continue medical therapy for his coronary artery disease and ischemic cardiomyopathy Ventricular tachycardia Patient apparently had an episode of V. tach this morning. Cardiology made aware, I counseled the patient about possibility of needing AICD/LifeVest, given his low EF, he is at high risk for sudden cardiac , due to V. tach or V. fib. He verbalized understanding will discuss with cardiology about EP consult Acute hypoxic respiratory failure -likely due to CHF and PE -rx underlying cause, continue oxygen supplementation -improving acute on chronic Congestive heart failure, sytolic Stage C ischemic cardiomyopathy with LVEF 8% and akinesis of the apical and anterior salcido consistent with previous transmural AR in the LAD distribution. now euvolemic, off lasix optimize cardiac meds -echo shows ef of 8%, end stage CHF -cardiology following Hypertension continue BP meds MILY/vasomotor nephropathy -likely due to aggressive diuresis -Lasix has been discontinued, creatinine is improved Hyperlipidemia Continue statins Peripheral Arterial disease vascular surgery input appreciated, poor pulses in LLE Reviewed arterial duplex. Patient will require CT of the abdomen, pelvis, with runoff to further assess his arterial anatomy. This will be performed in order to determine if the patient can have a retrograde right femoral access versus an antegrade left femoral access and to assess tibial flow which I suspect is compromised given the low velocities in the left tibial vessels. Patient will need to be medically stabilized prior to any vascular interventions. * Left big toe stump will need to be debrided * CT angiogram of abdomen with lower extremity runoff showed Extensive atherosclerotic disease, bilateral iliac artery occlusions and stenosis both arterial flow is patent to the feet LLE DVT and PE -continue heparin gtt -warfarin was initiated DVT prophylaxis fully anticoagulated History Interval history: chest pain is now resolved, SOB is improved Hospitalist Physical - Physical exam Narrative exam: General: Patient appears well in no distress HEENT: MMM, EOMI cardiac: S1-S2 heard lungs: clear to auscultation, abdomen: soft, nontender, nondistended bowel sounds positive extremities: 2 plus LLE pitting edema, sp L big toe amputation with yellow necrotic wound ulcer at the stump pedal pulse not palpable Skin: no rash or lesion Neuro: no focal deficit Psych: appropriate behavior and mood, cognition intact - Constitutional Vitals: Temp Pulse Resp BP Pulse Ox 97.8 F 86 20 104/63 98 01/23/17 08:05 01/23/17 09:50 01/23/17 08:05 01/23/17 09:50 01/23/17 10:00 General appearance: Present: no acute distress, other (altered mental status) Results - Labs CBC & Chem 7: 01/22/17 05:41 01/22/17 20:29 Labs: Laboratory Last Values WBC 9.3 K/mm3 (4.5-11.0) 01/20/17 04:54 RBC 4.16 M/mm3 (3.65-5.03) 01/20/17 04:54 Hgb 12.2 gm/dl (11.8-15.2) 01/22/17 05:41 Hct 38.1 % (35.5-45.6) 01/22/17 05:41 MCV 87 fl (84-94) 01/20/17 04:54 MCH 29 pg (28-32) 01/20/17 04:54 MCHC 33 % (32-34) 01/20/17 04:54 RDW 17.0 % (13.2-15.2) H 01/20/17 04:54 Plt Count 277 K/mm3 (140-440) 01/22/17 05:41 Lymph % (Auto) 30.1 % (13.4-35.0) 01/20/17 04:54 [place] % (Auto) 8.6 % (0.0-7.3) H 01/20/17 04:54 Eos % (Auto) 1.9 % (0.0-4.3) 01/20/17 04:54 Baso % (Auto) 1.0 % (0.0-1.8) 01/20/17 04:54 Lymph # 2.8 K/mm3 (1.2-5.4) 01/20/17 04:54 [place] # 0.8 K/mm3 (0.0-0.8) 01/20/17 04:54 Eos # 0.2 K/mm3 (0.0-0.4) 01/20/17 04:54 Baso # 0.1 K/mm3 (0.0-0.1) 01/20/17 04:54 Seg Neutrophils % 58.4 % (40.0-70.0) 01/20/17 04:54 Seg Neutrophils # 5.4 K/mm3 (1.8-7.7) 01/20/17 04:54 PT 18.0 Sec. (12.2-14.9) H 01/23/17 09:01 INR 1.41 (0.87-1.13) H 01/23/17 09:01 APTT 26.7 Sec. (24.2-36.6) 01/20/17 20:29 D-Dimer 3206.82 ng/mlDDU (0-234) H 01/19/17 20:26 Heparin Anti-Xa Level 0.45 U.I./ml (0.3-0.7) 01/23/17 09:01 Sodium 135 mmol/L (137-145) L 01/22/17 20:29 Potassium 3.9 mmol/L (3.6-5.0) 01/22/17 20:29 Chloride 97.7 mmol/L (98-107) L 01/22/17 20:29 Carbon Dioxide 22 mmol/L (22-30) 01/22/17 20:29 Anion Gap 19 mmol/L 01/22/17 20:29 BUN 42 mg/dL (9-20) H 01/22/17 20:29 Creatinine 1.4 mg/dL (0.8-1.5) 01/22/17 20:29 Estimated GFR 51 ml/min 01/22/17 20:29 BUN/Creatinine Ratio 30.00 % 01/22/17 20:29 Glucose 110 mg/dL (75-100) H 01/22/17 20:29 Hemoglobin A1c 5.7 % (4-6) 01/19/17 23:58 Calcium 7.9 mg/dL (8.4-10.2) L 01/22/17 20:29 Total Bilirubin 0.90 mg/dL (0.1-1.2) 01/20/17 04:54 AST 105 units/L (5-40) H 01/20/17 04:54 ALT 113 units/L (7-56) H 01/20/17 04:54 Alkaline Phosphatase 150 units/L (35-129) H 01/20/17 04:54 Total Creatine Kinase 38 units/L (55-170) L 01/20/17 13:47 CK-MB (CK-2) 2.7 ng/mL (0.0-4.0) 01/20/17 13:47 CK-MB (CK-2) Rel Index 7.1 (0-4) H 01/20/17 13:47 Troponin T 0.245 ng/mL (0.00-0.029) H* D 01/20/17 13:47 NT-Pro-B Natriuret Pep 05568 pg/mL (0-900) H 01/19/17 19:24 Total Protein 6.2 g/dL (6.3-8.2) L 01/20/17 04:54 Albumin 3.1 g/dL (3.9-5) L 01/20/17 04:54 Albumin/Globulin Ratio 1.0 % 01/20/17 04:54 Triglycerides 128 mg/dL (2-149) 01/19/17 19:24 Cholesterol 93 mg/dL (50-199) 01/19/17 19:24 LDL Cholesterol Direct 49 mg/dL (50-130) L 01/19/17 19:24 HDL Cholesterol 19 mg/dL (40-59) L 01/19/17 19:24 Cholesterol/HDL Ratio 4.89 % 01/19/17 19:24
--- NOTE | 2017-01-23 13:06 | Progress Note ---
Assessment and Plan - Patient Problems (1) Chest pain Current Visit: Yes Status: Acute Qualifiers: Chest pain type: C Ischemic chest pain type: I Plan to address problem: Thallium stress test shows evidence of prior infarct in the septum and apex. No reversible nataly-infarct ischemia. Medical therapy for coronary artery disease and ischemic cardiomyopathy. (2) Nonsustained ventricular tachycardia Current Visit: Yes Status: Acute Plan to address problem: We will increase the beta yessica therapy with metoprolol. We will also recommend optimization of his electrolyte status, check a magnesium level. Subjective Date of service: 01/23/17 Interval history: Patient looks comfortable, in no acute distress. No chest pain and no shortness of breath or palpitations. On telemetry, he was noted with a short burst of nonsustained ventricular tachycardia. Otherwise, stable sinus rhythm with occasional PVCs. Objective Vital Signs Temp Pulse Pulse Resp BP BP Pulse Ox 01/23/17 10:00 98 01/23/17 09:50 86 104/63 01/23/17 09:49 86 104/63 01/23/17 08:05 97.8 F 86 20 104/63 98 01/23/17 04:57 97.6 F 84 18 124/58 99 01/23/17 02:16 101 H 01/23/17 00:58 98.2 F 95 H 18 114/80 97 01/22/17 21:37 98 01/22/17 21:24 20 01/22/17 20:40 98.2 F 93 H 18 107/70 97 01/22/17 16:00 101 H 01/22/17 15:55 98.3 F 100 H 18 123/89 96 - Physical Examination General: No Apparent Distress HEENT: Positive: PERRL Neck: Positive: neck supple Cardiac: Positive: Reg Rate and Rhythm Lungs: Positive: Decreased Breath Sounds Neuro: Positive: Grossly Intact Abdomen: Positive: Soft Skin: Positive: Clear Extremities: Present: normal - Labs and Meds Coagulation 01/23/17 Range/Units 09:01 PT 18.0 H (12.2-14.9) Sec. INR 1.41 H (0.87-1.13) Comprehensive Metabolic Panel 01/22/17 Range/Units 20:29 Sodium 135 L (137-145) mmol/L Potassium 3.9 (3.6-5.0) mmol/L Chloride 97.7 L (98-107) mmol/L Carbon Dioxide 22 (22-30) mmol/L BUN 42 H (9-20) mg/dL Creatinine 1.4 (0.8-1.5) mg/dL Glucose 110 H (75-100) mg/dL Calcium 7.9 L (8.4-10.2) mg/dL - Imaging and Cardiology EKG: image reviewed (Sinus tach, with inferior and septal ischemia- indeterminate age)
[2017-01-23] MEDS: LOPRESSOR PO SCH ×2 (14:55→22:15)
[2017-01-23] MEDS: COUMADIN PO SCH (18:11)
[2017-01-23 20:13] LABS: Anion Gap 20 mmol/L; BUN/Creatinine Ratio 26.66; Blood Urea Nitrogen 32 mg/dL (9-20); Calcium 7.8 mg/dL (8.4-10.2); Carbon Dioxide 20 mmol/L (22-30); Chloride 97.7 mmol/L (98-107); Glucose 135 mg/dL (75-100); Sodium 133 mmol/L (137-145)
[2017-01-23] MEDS: AMBIEN PO PRN (22:15)
[2017-01-24 03:42] LABS: Hematocrit 36.8 % (35.5-45.6); Hemoglobin 11.8 gm/dl (11.8-15.2)
[2017-01-24 03:58] LABS: INR 1.64 (0.87-1.13)
[2017-01-24] MEDS: HEPARIN/ 0.45% NACL-25,000 UNIT/500 ML 25,000 UNIT/500 ML BAG IV SCH (08:47)
[2017-01-24] MEDS: ZESTRIL PO SCH (10:05)
[2017-01-24] MEDS: LOPRESSOR PO SCH ×2 (10:05→21:26)
[2017-01-24] MEDS: PLAVIX PO SCH (10:05)
--- NOTE | 2017-01-24 12:49 | Progress Note ---
Assessment and Plan Chest pain is atypical negative MPI this admission Acute DVT/PE initiated on IV heparin and warfarin Bilateral Pleural effusion Ischemic Cardiomyopathy EF <10% Hx of recent VA/CAD fully compliant with dual oral antiplatelet therapy as an outpatient per pt. Now only on plavix therapy. Anxiety Bilateral LE peripheral vascular disease Recommendations: Continue medical therapy for his cardiomyopathy and coronary artery disease. Subjective Date of service: 01/24/17 Interval history: No reported events on telemetry overnight. Objective Vital Signs Temp Pulse Pulse Resp BP BP Pulse Ox 01/24/17 12:00 98.2 F 100 H 18 110/81 98 01/24/17 11:02 98 01/24/17 08:47 98.5 F 98 H 16 112/73 100 01/24/17 08:30 16 01/24/17 04:40 97.6 F 94 H 22 113/77 99 01/24/17 01:37 97.9 F 94 H 22 104/78 100 01/23/17 22:15 90 108/75 01/23/17 21:49 98 01/23/17 20:46 98.2 F 90 22 108/75 100 01/23/17 15:45 97.5 F L 88 22 102/73 96 01/23/17 14:55 96 H 108/77 - Physical Examination General: No Apparent Distress HEENT: Positive: PERRL Neck: Positive: trachea midline Cardiac: Positive: Reg Rate and Rhythm - Labs and Meds Coagulation 01/24/17 Range/Units 03:25 PT 20.3 H (12.2-14.9) Sec. INR 1.64 H (0.87-1.13) CBC 01/24/17 Range/Units 03:25 Hgb 11.8 (11.8-15.2) gm/dl Hct 36.8 (35.5-45.6) % Plt Count 248 (140-440) K/mm3 Comprehensive Metabolic Panel 01/23/17 Range/Units 18:56 Sodium 133 L (137-145) mmol/L Potassium 5.0 D (3.6-5.0) mmol/L Chloride 97.7 L (98-107) mmol/L Carbon Dioxide 20 L (22-30) mmol/L BUN 32 H (9-20) mg/dL Creatinine 1.2 (0.8-1.5) mg/dL Glucose 135 H (75-100) mg/dL Calcium 7.8 L (8.4-10.2) mg/dL - Imaging and Cardiology EKG: image reviewed (Sinus tach, with inferior and septal ischemia- indeterminate age)
--- NOTE | 2017-01-24 13:57 | Progress Note ---
Assessment and Plan Total Time Spent with Patient (Minutes): 35 - Patient Problems (1) Acute coronary syndrome Current Visit: Yes Status: Acute Plan to address problem: Chest pain at present appears to be atypical chest pain. Likely pleuritic in nature from PE. Has resolved. Patient has stress test this time which showed severe dilated cardiomyopathy with fixed apical defect and septal wall defect. At present chest pain-free continue to treat and medical management underlying etiology PE and congestive heart failure. (2) Anxiety Current Visit: Yes Status: Acute Plan to address problem: Continue Ativan when necessary. Some of this could be secondary to dyspnea as well (3) Chest pain Current Visit: Yes Status: Acute Qualifiers: Chest pain type: C Ischemic chest pain type: I Plan to address problem: Atypical chest pain resolved see above. (4) Nonsustained ventricular tachycardia Current Visit: Yes Status: Acute Plan to address problem: V. tach has resolved patient regular irregular now. Agree with increase risk of sudden . (5) Congestive heart failure Current Visit: Yes Status: Chronic Qualifiers: Congestive heart failure type: combined Congestive heart failure chronicity : C Plan to address problem: Advanced end-stage congestive heart failure. Patient with ejection fraction of 10%. Will be difficult to optimize medical management this particular time secondary to the severity of paces disease. She does verbalize understanding. We'll continue to treat with anticoagulated Lasix after low manager training and beta yessica. Patient on statin Plavix and MANDA inhibitor. Also on Coumadin. We need to observe closely for bleeding (6) Hyperlipidemia Current Visit: Yes Status: Chronic Qualifiers: Hyperlipidemia type: mixed hyperlipidemia Qualified Code(s): E78.2 - Mixed hyperlipidemia Plan to address problem: Continuous atorvastatin. Goal LDL less than 70. (7) Hypertension Current Visit: Yes Status: Chronic Qualifiers: Hypertension type: essential hypertension Qualified Code(s): I10 - Essential (primary) hypertension Plan to address problem: Doesn't patient continues to have fair blood pressure control will continue present medical management of metoprolol and lisinopril. (8) Peripheral vascular disease Current Visit: Yes Status: Acute Plan to address problem: PT. with significant peripheral vascular disease with ischemia in both iliacs down dorsalis pedis and posterior tibial.. This diagnosed after CT angiogram with runoff. Patient will eventually need left ischemic toe debrided.cont medical mgt Not surgical candadite at this time for anything other than debridment (9) Pulmonary embolism Current Visit: Yes Status: Acute Qualifiers: Pulmonary embolism type: P Chronicity: C Acute cor pulmonale presence: A Plan to address problem: Patient is actively on heparin and Coumadin bridge. INR is 1.64 today. History Interval history: Patient in bed in moderate distress. Patient states every time he pulls the oxygen off he becomes short of breath. Patient remains frail. No new events overnight. Hospitalist Physical - Constitutional Vitals: Temp Pulse Resp BP Pulse Ox 98.2 F 100 H 18 110/81 98 01/24/17 12:00 01/24/17 12:00 01/24/17 12:00 01/24/17 12:00 01/24/17 12:00 General appearance: Present: no acute distress, other (moderate distress alert and oriented 3.) - EENT Eyes: Present: PERRL ENT: other (and temporal wasting neck supple.) - Neck Neck: Present: supple, normal ROM - Respiratory Respiratory effort: normal Respiratory: bilateral: diminished, rhonchi (lateral rhonchi. Decreased air entry right.) - Cardiovascular Rhythm: regularly irregular Heart Sounds: Present: S1 & S2 - Extremities Extremity abnormal: pulses diminished, tenderness, other (left foot bandaged.) Peripheral Pulses: abnormal - Abdominal General gastrointestinal: soft, non-tender, non-distended, normal bowel sounds, other (scaphoid abdomen) - Psychiatric Psychiatric: appropriate mood/affect, cooperative - Neurologic Neurologic: CNII-XII intact Results - Labs CBC & Chem 7: 01/24/17 03:25 01/23/17 18:56 Labs: Laboratory Last Values WBC 9.3 K/mm3 (4.5-11.0) 01/20/17 04:54 RBC 4.16 M/mm3 (3.65-5.03) 01/20/17 04:54 Hgb 11.8 gm/dl (11.8-15.2) 01/24/17 03:25 Hct 36.8 % (35.5-45.6) 01/24/17 03:25 MCV 87 fl (84-94) 01/20/17 04:54 MCH 29 pg (28-32) 01/20/17 04:54 MCHC 33 % (32-34) 01/20/17 04:54 RDW 17.0 % (13.2-15.2) H 01/20/17 04:54 Plt Count 248 K/mm3 (140-440) 01/24/17 03:25 Lymph % (Auto) 30.1 % (13.4-35.0) 01/20/17 04:54 [place] % (Auto) 8.6 % (0.0-7.3) H 01/20/17 04:54 Eos % (Auto) 1.9 % (0.0-4.3) 01/20/17 04:54 Baso % (Auto) 1.0 % (0.0-1.8) 01/20/17 04:54 Lymph # 2.8 K/mm3 (1.2-5.4) 01/20/17 04:54 [place] # 0.8 K/mm3 (0.0-0.8) 01/20/17 04:54 Eos # 0.2 K/mm3 (0.0-0.4) 01/20/17 04:54 Baso # 0.1 K/mm3 (0.0-0.1) 01/20/17 04:54 Seg Neutrophils % 58.4 % (40.0-70.0) 01/20/17 04:54 Seg Neutrophils # 5.4 K/mm3 (1.8-7.7) 01/20/17 04:54 PT 20.3 Sec. (12.2-14.9) H 01/24/17 03:25 INR 1.64 (0.87-1.13) H 01/24/17 03:25 APTT 26.7 Sec. (24.2-36.6) 01/20/17 20:29 D-Dimer 3206.82 ng/mlDDU (0-234) H 01/19/17 20:26 Heparin Anti-Xa Level 0.37 U.I./ml (0.3-0.7) 01/24/17 01:07 Sodium 133 mmol/L (137-145) L 01/23/17 18:56 Potassium 5.0 mmol/L (3.6-5.0) D 01/23/17 18:56 Chloride 97.7 mmol/L (98-107) L 01/23/17 18:56 Carbon Dioxide 20 mmol/L (22-30) L 01/23/17 18:56 Anion Gap 20 mmol/L 01/23/17 18:56 BUN 32 mg/dL (9-20) H 01/23/17 18:56 Creatinine 1.2 mg/dL (0.8-1.5) 01/23/17 18:56 Estimated GFR > 60 ml/min 01/23/17 18:56 BUN/Creatinine Ratio 26.66 % 01/23/17 18:56 Glucose 135 mg/dL (75-100) H 01/23/17 18:56 Hemoglobin A1c 5.7 % (4-6) 01/19/17 23:58 Calcium 7.8 mg/dL (8.4-10.2) L 01/23/17 18:56 Magnesium 2.00 mg/dL (1.7-2.3) 01/23/17 13:40 Total Bilirubin 0.90 mg/dL (0.1-1.2) 01/20/17 04:54 AST 105 units/L (5-40) H 01/20/17 04:54 ALT 113 units/L (7-56) H 01/20/17 04:54 Alkaline Phosphatase 150 units/L (35-129) H 01/20/17 04:54 Total Creatine Kinase 38 units/L (55-170) L 01/20/17 13:47 CK-MB (CK-2) 2.7 ng/mL (0.0-4.0) 01/20/17 13:47 CK-MB (CK-2) Rel Index 7.1 (0-4) H 01/20/17 13:47 Troponin T 0.245 ng/mL (0.00-0.029) H* D 01/20/17 13:47 NT-Pro-B Natriuret Pep 06303 pg/mL (0-900) H 01/19/17 19:24 Total Protein 6.2 g/dL (6.3-8.2) L 01/20/17 04:54 Albumin 3.1 g/dL (3.9-5) L 01/20/17 04:54 Albumin/Globulin Ratio 1.0 % 01/20/17 04:54 Triglycerides 128 mg/dL (2-149) 01/19/17 19:24 Cholesterol 93 mg/dL (50-199) 07/19/17 19:24 LDL Cholesterol Direct 49 mg/dL (50-130) L 01/19/17 19:24 HDL Cholesterol 19 mg/dL (40-59) L 01/19/17 19:24 Cholesterol/HDL Ratio 4.89 % 01/19/17 19:24 - Imaging and Cardiology Chest x-ray: image reviewed CT scan - abdomen: image reviewed US - abdomen: image reviewed
--- NOTE | 2017-01-24 14:45 | Event Note ---
Date: 01/24/17 Saw and examined patient. He is AAOx3, in NAD. His left toe surgical bed appears ischemic. He is currently on a facemask for supplemental O2 I reviewed his CT and revascularization of the left SFA is possible with an antegrade left sided approach. I would like to do this Tuesday. Consent was signed. I spoke with cardiology who said that his ischemia was stable. However, given his pulmonary issues including SOB and PE, I will get input from Pulmonology and Anesthesia before I proceed. This was relayed to the primary hospitalist team.
--- NOTE | 2017-01-24 17:24 | Consultation ---
History of Present Illness Consult date: 01/24/17 Reason for consult: dyspnea, other (AMI, ischemic cardio myopathy) History of present illness: Called to evaluate case of a 61-year-old male, admitted to the hospital with history of "chest flutter sensation" and history of CAD and ischemic peripheral vascular disease. The patient was referred to the hospital but EMS with initial impression of A. fib. He was treated for a IL in December,. While admitted, he had a Persantine thallium showing severe dilated cardiomyopathy. He also has an episode of also non-sustained ventricular tachycardia. His ejection fraction is estimated at 8% by echocardiogram and Persantine Thallium. Echo also shows evidence of poor left ventricular function and decreased right ventricular function with pulmonary hypertension. Chest CTA performed as part of his workup, show evidence of 2-3 small pulmonary emboli in small vessels of the right lower lobe. Also cardiomegaly with bilateral effusions, consistent with CHF. Wells PE score is 3. He was also complaining of signs of lower extremity ischemia. Has been seen by vascular surgery and an abdominal CT scan show evidence of bilateral occlusions of the iliac arteries with some processing collision of the feet level. We are asked to evaluate the patient from the pulmonary standpoint for pulmonary risk for surgery Laboratory Tests 01/19/17 01/19/17 01/19/17 19:24 19:24 22:31 Troponin T 0.270 H* 0.274 H* NT-Pro-B Natriuret Pep 76747 H 01/19/17 01/20/17 01/20/17 23:58 04:54 13:47 Troponin T 0.298 H* 0.313 H* 0.245 H* D NT-Pro-B Natriuret Pep At the present time, the patient feels better. He complains of persistent shortness of breath at rest and on exertion. This noted prior to admission and remains to a certain degree. He denies any chest pain. No hemoptysis episode [employer]. States that he is able to walk to the nursing floor from this with his walker. Unable to climb stairs prior to admission. He has an erratic remote history of wheezing and he is a former smoker of 20 pack years. Denies any prior diagnosis of COPD or asthma. Past History Past Medical History: CAD, hypertension Social history: Lives alone. denies: smoking (see HPI) Medications and Allergies Allergies Allergy/AdvReac Type Severity Reaction Status Date / Time Penicillins AdvReac Hives Verified 01/18/17 14:28 Home Medications Medication Instructions Recorded Confirmed Last Taken Type Clopidogrel [Plavix] 75 mg PO QDAY 01/18/17 01/19/17 01/19/17 History Furosemide [Lasix TAB] 40 mg PO QDAY 01/18/17 01/19/17 01/19/17 History Lovastatin [Altoprev] 40 mg PO QPM 01/18/17 01/19/17 01/19/17 History Metoprolol [Lopressor TAB] 50 mg PO DAILY 01/18/17 01/19/17 01/19/17 History traMADol [Ultram] 50 mg PO Q4HR PRN 01/18/17 01/19/17 01/19/17 History Active Meds: Active Medications Acetaminophen (Tylenol) 650 mg PO Q4H PRN PRN Reason: Pain MILD(1-3)/Fever >100.5/SAUCEDO Last Admin: 01/23/17 05:01 Dose: 650 mg Atorvastatin Calcium (Lipitor) 40 mg PO QHS [facility] Last Admin: 01/23/17 22:15 Dose: 40 mg Bisacodyl (Dulcolax) 10 mg OK QDAY PRN PRN Reason: Constipation unrelieved by MOM Clopidogrel Bisulfate (Plavix) 75 mg PO QDAY [facility] Last Admin: 01/24/17 10:05 Dose: 75 mg Hydromorphone HCl (Dilaudid) 0.5 mg IV Q3H PRN PRN Reason: Pain , Severe (7-10) Heparin Sodium/Sodium Chloride (Heparin/ 0.45% Nacl-25,000 Unit/500 Ml) 25,000 unit in 500 mls @ 18 mls/hr IV TITRATE [facility]; 900 UNITS/HR PRN Reason: Protocol Last Admin: 01/24/17 08:47 Dose: 1,250 units/hr, 25 mls/hr Lisinopril (Zestril) 2.5 mg PO QDAY [facility] Last Admin: 01/24/17 10:05 Dose: 2.5 mg Magnesium Hydroxide (Milk Of Magnesia) 30 ml PO Q4H PRN PRN Reason: Constipation Metoprolol Tartrate (Lopressor) 50 mg PO BID [facility] Last Admin: 01/24/17 10:05 Dose: 50 mg Ondansetron HCl (Zofran) 4 mg IV Q8H PRN PRN Reason: N/V unrelieved by Reglan Sodium Chloride (Sodium Chloride Flush Syringe 10 Ml) 10 ml IV PRN PRN PRN Reason: LINE FLUSH Tramadol HCl (Ultram) 50 mg PO Q4HR PRN PRN Reason: Pain Last Admin: 01/22/17 21:24 Dose: 50 mg Warfarin Sodium (Coumadin Pharmacy To Dose) 1 each PO PKCONSULT [facility] PRN Reason: Protocol Warfarin Sodium (Coumadin) 7.5 mg PO DAILY@1700 [facility] Last Admin: 01/23/17 18:11 Dose: 7.5 mg Zolpidem Tartrate (Ambien) 5 mg PO QHS PRN PRN Reason: Insomnia Last Admin: 01/23/17 22:15 Dose: 5 mg Review of Systems Constitutional: anorexia, fatigue, weakness, malaise Cardiovascular: chest pain, palpitations, rapid/irregular heart beat, edema, shortness of breath, dyspnea on exertion, claudication, leg edema Respiratory: cough, shortness of breath, dyspnea on exertion, no hemoptysis, no wheezing Gastrointestinal: no abdominal pain, no nausea, no vomiting, no melena, no hematochezia Integumentary: deferred Neurological: weakness, numbness, no head injury, no transient paralysis, no paralysis, no parathesias Physical Examination Vital signs: Vital Signs BP Pulse Ox 154/102 97 01/19/17 18:20 01/19/17 18:20 General appearance: no acute distress, alert Eyes: non-icteric ENT: oropharynx moist Neck: supple, no lymphadenopathy, no JVD Ascultation: Bilateral: rales (sporadic bases. Otherwise clear to auscultation) Cardiovascular: regular rate and rhythm Gastrointestinal: normoactive bowel sounds, non-distended Extremities: other (poor pulses. Draped wound left foot) normal mental status, non-focal exam, CN II-XII normal mood appropriate, affect normal Results - Laboratory Findings CBC and BMP: 01/24/17 03:25 01/23/17 18:56 PT/INR, D-dimer PT 20.3 Sec. (12.2-14.9) H 01/24/17 03:25 INR 1.64 (0.87-1.13) H 01/24/17 03:25 D-Dimer 3206.82 ng/mlDDU (0-234) H 01/19/17 20:26 Abnormal lab findings: Abnormal Labs 01/19/17 01/19/17 01/19/17 22:30 22:30 22:31 RDW [place] % (Auto) PT INR Heparin Anti-Xa Level Sodium Chloride Carbon Dioxide 20 L BUN 37 H Glucose 131 H Calcium AST ALT Alkaline Phosphatase Total Creatine Kinase 28 L CK-MB (CK-2) Rel Index 7.8 H Troponin T 0.274 H* Total Protein Albumin 01/19/17 01/19/17 01/20/17 23:58 23:58 04:54 RDW 17.3 H 17.0 H [place] % (Auto) 8.9 H 8.6 H PT INR Heparin Anti-Xa Level Sodium Chloride Carbon Dioxide BUN Glucose Calcium AST ALT Alkaline Phosphatase Total Creatine Kinase CK-MB (CK-2) Rel Index Troponin T 0.298 H* Total Protein Albumin 01/20/17 01/20/17 01/20/17 04:54 04:54 04:54 RDW [place] % (Auto) PT INR Heparin Anti-Xa Level Sodium Chloride Carbon Dioxide BUN 41 H Glucose Calcium AST 105 H ALT 113 H Alkaline Phosphatase 150 H Total Creatine Kinase 24 L CK-MB (CK-2) Rel Index 8.7 H Troponin T 0.313 H* Total Protein 6.2 L Albumin 3.1 L 01/20/17 01/20/17 01/20/17 13:47 13:47 20:29 RDW [place] % (Auto) PT 18.7 H INR 1.48 H Heparin Anti-Xa Level Sodium Chloride Carbon Dioxide BUN Glucose Calcium AST ALT Alkaline Phosphatase Total Creatine Kinase 38 L CK-MB (CK-2) Rel Index 7.1 H Troponin T 0.245 H* D Total Protein Albumin 01/21/17 01/22/17 01/22/17 17:01 00:58 01:05 RDW [place] % (Auto) PT INR Heparin Anti-Xa Level < 0.10 L 0.12 L Sodium 135 L Chloride Carbon Dioxide 21 L BUN 50 H Glucose Calcium AST ALT Alkaline Phosphatase Total Creatine Kinase CK-MB (CK-2) Rel Index Troponin T Total Protein Albumin 01/22/17 01/22/17 01/22/17 05:41 18:48 20:29 RDW [place] % (Auto) PT 22.0 H INR 1.82 H Heparin Anti-Xa Level 0.23 L Sodium 135 L Chloride 97.7 L Carbon Dioxide BUN 42 H Glucose 110 H Calcium 7.9 L AST ALT Alkaline Phosphatase Total Creatine Kinase CK-MB (CK-2) Rel Index Troponin T Total Protein Albumin 01/23/17 01/23/17 01/24/17 09:01 18:56 03:25 RDW [place] % (Auto) PT 18.0 H 20.3 H INR 1.41 H 1.64 H Heparin Anti-Xa Level Sodium 133 L Chloride 97.7 L Carbon Dioxide 20 L BUN 32 H Glucose 135 H Calcium 7.8 L AST ALT Alkaline Phosphatase Total Creatine Kinase CK-MB (CK-2) Rel Index Troponin T Total Protein Albumin - Diagnostic Findings CT scan - chest: report reviewed Assessment and Plan Chest pain Ischemic cardiomyopathy, severe AMI December 2016 Incidental pulmonary embolism, right lower lobe. The relevance of this finding appears to be unclear. This may account for some outpatient symptoms or could be an incidental incidental. I don't believe that his cardiac changes, pulmonary hypertension,are related this and they appear to be more related to ischemic cardiomyopathy at this point. Iliac occlusion Peripheral vascular disease. Recommendations Continue oxygen support. Goal is to maintain oximetry over 92% at all times. Regarding pulmonary embolism, I will maintain standard anticoagulation, in view of patient for cardiovascular reserve. Typically, its recommended that we wait 6 weeks before nonemergent surgery in the setting of acute PE. However, the magnitude/burden of this patient clot episode, if real, appears to be very small. In view of his current findings, mayor risk for surgery appears to be cardiovascular status. I strongly encourage this to be discussed in detail with cardiology. It is unclear, if the patient will need postoperative ventilation support. My concern is that, if this does occur, the reason might be more due to heart failure that anything else.
[2017-01-24] MEDS: COUMADIN PO SCH (18:02)
[2017-01-24 20:00] LABS: Anion Gap 18 mmol/L; BUN/Creatinine Ratio 31.11; Blood Urea Nitrogen 28 mg/dL (9-20); Calcium 8.2 mg/dL (8.4-10.2); Carbon Dioxide 21 mmol/L (22-30); Chloride 99.3 mmol/L (98-107); Glucose 190 mg/dL (75-100); Potassium 4.7 mmol/L (3.6-5.0); Sodium 134 mmol/L (137-145)
[2017-01-24] MEDS: AMBIEN PO PRN (21:27)
[2017-01-25] MEDS: HEPARIN/ 0.45% NACL-25,000 UNIT/500 ML 25,000 UNIT/500 ML BAG IV SCH ×2 (04:49→23:16)
[2017-01-25 06:11] LABS: Eosinophils % (Auto) 0.5 % (0.0-4.3); Hemoglobin 12.7 gm/dl (11.8-15.2); Mean Corpuscular HGB Conc 32 % (32-34); Mean Corpuscular Hemoglobin 28 pg (28-32); Mean Corpuscular Volume 88 fl (84-94); Platelet Count 298 K/mm3 (140-440); Red Blood Count 4.57 M/mm3 (3.65-5.03); Red Cell Distribution Width 17.4 % (13.2-15.2); White Blood Count 9.1 K/mm3 (4.5-11.0)
[2017-01-25 06:22] LABS: INR 1.61 (0.87-1.13)
[2017-01-25 06:27] LABS: Anion Gap 21 mmol/L; Blood Urea Nitrogen 28 mg/dL (9-20); Calcium 8.9 mg/dL (8.4-10.2); Carbon Dioxide 21 mmol/L (22-30); Chloride 98.3 mmol/L (98-107); Glucose 107 mg/dL (75-100); Potassium 5.7 mmol/L (3.6-5.0); Sodium 135 mmol/L (137-145)
--- NOTE | 2017-01-25 10:06 | Progress Note ---
Assessment and Plan Pt is s/p L 1st toe amp at outside facility. His wounds have failed to heal. Arterial duplex suggest he does not have adequate blood flow to the LLE to facilitate wound healing. CTA shows multiple levels of stenosis that are likely compromising distal flow. This pt was admitted due to CP. He is s/p recent AMI, has underlying ischemic cardiomyopathy, and noted to have an incidental Pulm embolism on CT scan. Cardio, Pulm , and anesthesia clearance have been requested prior to Percutaneous intervention to improve arterial flow to the LLE. Pulm note reviewed. Intervention is tentatively planned for tomorrow if no objections from the other services. - Patient Problems (1) Atherosclerosis of [place] arteries of the extremities with gangrene Current Visit: Yes Status: Acute Qualifiers: Peripheral atherosclerosis location: P Laterality: L (2) Status post amputation of toe of left foot Current Visit: Yes Status: Acute Subjective Date of service: 01/25/17 Interval history: Pt awake and alert without specific complaint at present. Objective - Constitutional Vitals: Vital Signs - 12hr 01/25/17 01/25/17 01/25/17 00:40 04:40 07:56 Temperature 98.5 F 98.6 F Pulse Rate [ 58 L 92 H Apical] Pulse Rate [ 58 L 92 H Left Dorsalis Pedis] Pulse Rate [ 58 L 92 H Left Posterior Tibial] Pulse Rate [ 58 L 92 H Left Radial] Respiratory 22 18 Rate Blood Pressure 108/56 122/79 [Left Radial Artery] O2 Sat by Pulse 97 100 100 Oximetry 01/25/17 09:15 Temperature 97.6 F Pulse Rate [ 95 H Apical] Pulse Rate [ 98 H Left Dorsalis Pedis] Pulse Rate [ 98 H Left Posterior Tibial] Pulse Rate [ 95 H Left Radial] Respiratory 20 Rate Blood Pressure 137/95 [Left Radial Artery] O2 Sat by Pulse 100 Oximetry General appearance: Present: no acute distress - EENT Eyes: EOM intact ENT: hearing intact - Respiratory Respiratory effort: normal (at rest on O2 face mask, taken off (by pt) briefly during exam without acute deterioration. ) Extremities: normal temperature, abnormal (bandages in place) - Neurologic Neurologic: no focal deficits - Psychiatric Psychiatric: appropriate mood/affect, intact judgment & insight, cooperative - Labs CBC & Chem 7: 01/25/17 05:37 01/25/17 05:37 Labs: Abnormal lab results 01/24/17 01/25/17 01/25/17 Range/Units 19:18 05:37 05:37 RDW 17.4 H (13.2-15.2) % [place] % (Auto) 11.4 H (0.0-7.3) % [place] # 1.0 H (0.0-0.8) K/mm3 PT 20.0 H (12.2-14.9) Sec. INR 1.61 H (0.87-1.13) Sodium 134 L (137-145) mmol/L Potassium (3.6-5.0) mmol/L Carbon Dioxide 21 L (22-30) mmol/L BUN 28 H (9-20) mg/dL Glucose 190 H (75-100) mg/dL Calcium 8.2 L (8.4-10.2) mg/dL 01/25/17 Range/Units 05:37 RDW (13.2-15.2) % [place] % (Auto) (0.0-7.3) % [place] # (0.0-0.8) K/mm3 PT (12.2-14.9) Sec. INR (0.87-1.13) Sodium (137-145) mmol/L Potassium 5.7 H D (3.6-5.0) mmol/L Carbon Dioxide 21 L (22-30) mmol/L BUN 28 H (9-20) mg/dL Glucose 107 H (75-100) mg/dL Calcium (8.4-10.2) mg/dL
[2017-01-25] MEDS ORDERED: KIONEX PO PRN (10:28)
--- NOTE | 2017-01-25 11:12 | Progress Note ---
Assessment and Plan Chest pain Ischemic cardiomyopathy, severe AMI December 2016 Incidental pulmonary embolism, right lower lobe. Iliac occlusion Peripheral vascular disease. Recommendations Regarding pulmonary embolism, I will maintain/complete standard anticoagulation , in view of patient for cardiovascular reserve. Cards f/u , see prior recommendations , comments Subjective Date of service: 01/25/17 Interval history: Feeling the same.Able to walk the [place] this morning.No chest pain,cough or wheezing Objective Vital Signs - 12hr 01/25/17 01/25/17 01/25/17 00:40 04:40 07:56 Temperature 98.5 F 98.6 F Pulse Rate [ 58 L 92 H Apical] Pulse Rate [ 58 L 92 H Left Dorsalis Pedis] Pulse Rate [ 58 L 92 H Left Posterior Tibial] Pulse Rate [ 58 L 92 H Left Radial] Respiratory 22 18 Rate Blood Pressure 108/56 122/79 [Left Radial Artery] O2 Sat by Pulse 97 100 100 Oximetry 01/25/17 09:15 Temperature 97.6 F Pulse Rate [ 95 H Apical] Pulse Rate [ 98 H Left Dorsalis Pedis] Pulse Rate [ 98 H Left Posterior Tibial] Pulse Rate [ 95 H Left Radial] Respiratory 20 Rate Blood Pressure 137/95 [Left Radial Artery] O2 Sat by Pulse 100 Oximetry Constitutional: no acute distress, alert Eyes: non-icteric ENT: oropharynx moist Neck: supple, no lymphadenopathy, no JVD Ascultation: Bilateral: rales (sporadic bases. ) Cardiovascular: regular rate and rhythm Gastrointestinal: normoactive bowel sounds, non-distended Extremities: other (poor pulses. Draped wound left foot) Neurologic: normal mental status, non-focal exam, CN II-XII normal Psychiatric: mood appropriate, affect normal CBC and BMP: 01/25/17 05:37 01/25/17 05:37 ABG, PT/INR, D-dimer: PT/INR, D-dimer PT 20.0 Sec. (12.2-14.9) H 01/25/17 05:37 INR 1.61 (0.87-1.13) H 01/25/17 05:37 D-Dimer 3206.82 ng/mlDDU (0-234) H 01/19/17 20:26 Abnormal lab findings: Abnormal Labs 01/19/17 01/19/17 01/19/17 22:30 22:30 22:31 RDW [place] % (Auto) [place] # PT INR Heparin Anti-Xa Level Sodium Potassium Chloride Carbon Dioxide 20 L BUN 37 H Glucose 131 H Calcium AST ALT Alkaline Phosphatase Total Creatine Kinase 28 L CK-MB (CK-2) Rel Index 7.8 H Troponin T 0.274 H* Total Protein Albumin 01/19/17 01/19/17 01/20/17 23:58 23:58 04:54 RDW 17.3 H 17.0 H [place] % (Auto) 8.9 H 8.6 H [place] # PT INR Heparin Anti-Xa Level Sodium Potassium Chloride Carbon Dioxide BUN Glucose Calcium AST ALT Alkaline Phosphatase Total Creatine Kinase CK-MB (CK-2) Rel Index Troponin T 0.298 H* Total Protein Albumin 01/20/17 01/20/17 01/20/17 04:54 04:54 04:54 RDW [place] % (Auto) [place] # PT INR Heparin Anti-Xa Level Sodium Potassium Chloride Carbon Dioxide BUN 41 H Glucose Calcium AST 105 H ALT 113 H Alkaline Phosphatase 150 H Total Creatine Kinase 24 L CK-MB (CK-2) Rel Index 8.7 H Troponin T 0.313 H* Total Protein 6.2 L Albumin 3.1 L 01/20/17 01/20/17 01/20/17 13:47 13:47 20:29 RDW [place] % (Auto) [place] # PT 18.7 H INR 1.48 H Heparin Anti-Xa Level Sodium Potassium Chloride Carbon Dioxide BUN Glucose Calcium AST ALT Alkaline Phosphatase Total Creatine Kinase 38 L CK-MB (CK-2) Rel Index 7.1 H Troponin T 0.245 H* D Total Protein Albumin 01/21/17 01/22/17 01/22/17 17:01 00:58 01:05 RDW [place] % (Auto) [place] # PT INR Heparin Anti-Xa Level < 0.10 L 0.12 L Sodium 135 L Potassium Chloride Carbon Dioxide 21 L BUN 50 H Glucose Calcium AST ALT Alkaline Phosphatase Total Creatine Kinase CK-MB (CK-2) Rel Index Troponin T Total Protein Albumin 01/22/17 01/22/17 01/22/17 05:41 18:48 20:29 RDW [place] % (Auto) [place] # PT 22.0 H INR 1.82 H Heparin Anti-Xa Level 0.23 L Sodium 135 L Potassium Chloride 97.7 L Carbon Dioxide BUN 42 H Glucose 110 H Calcium 7.9 L AST ALT Alkaline Phosphatase Total Creatine Kinase CK-MB (CK-2) Rel Index Troponin T Total Protein Albumin 01/23/17 01/23/17 01/24/17 09:01 18:56 03:25 RDW [place] % (Auto) [place] # PT 18.0 H 20.3 H INR 1.41 H 1.64 H Heparin Anti-Xa Level Sodium 133 L Potassium Chloride 97.7 L Carbon Dioxide 20 L BUN 32 H Glucose 135 H Calcium 7.8 L AST ALT Alkaline Phosphatase Total Creatine Kinase CK-MB (CK-2) Rel Index Troponin T Total Protein Albumin 01/24/17 01/25/17 01/25/17 19:18 05:37 05:37 RDW 17.4 H [place] % (Auto) 11.4 H [place] # 1.0 H PT 20.0 H INR 1.61 H Heparin Anti-Xa Level Sodium 134 L Potassium Chloride Carbon Dioxide 21 L BUN 28 H Glucose 190 H Calcium 8.2 L AST ALT Alkaline Phosphatase Total Creatine Kinase CK-MB (CK-2) Rel Index Troponin T Total Protein Albumin 01/25/17 05:37 RDW [place] % (Auto) [place] # PT INR Heparin Anti-Xa Level Sodium Potassium 5.7 H D Chloride Carbon Dioxide 21 L BUN 28 H Glucose 107 H Calcium AST ALT Alkaline Phosphatase Total Creatine Kinase CK-MB (CK-2) Rel Index Troponin T Total Protein Albumin
[2017-01-25] MEDS: PLAVIX PO SCH (11:19)
[2017-01-25] MEDS: ZESTRIL PO SCH (11:19)
--- NOTE | 2017-01-25 11:19 | Progress Note ---
Assessment and Plan Chest pain is atypical negative MPI this admission Acute DVT/PE initiated on IV heparin and warfarin Bilateral Pleural effusion Ischemic Cardiomyopathy EF <10% Hx of recent [place]/CAD fully compliant with dual oral antiplatelet therapy as an outpatient per pt. Now only on plavix therapy. Anxiety Bilateral LE peripheral vascular disease Hyperkalemia Recommendations: Continue medical therapy for his cardiomyopathy and coronary artery disease. Patient is awaiting possible L leg vascular surgery. Cardiac status is stable, asymptomatic for surgery-recommendation is NO interruption of Plavix therapy. Moderate cardiac nataly-op risk. ICD for primary prevention will be indicated if LV dysfunction persists AFTER at least 6-9 months of optimal medical therapy. Subjective Date of service: 01/25/17 Interval history: Patient undergoing physical therapy. He has no chest pain or shortness of breath. Objective Vital Signs Temp Pulse Pulse Pulse Pulse Resp BP 01/25/17 09:15 97.6 F 95 H 98 H 98 H 95 H 20 01/25/17 07:56 01/25/17 04:40 98.6 F 92 H 92 H 92 H 92 H 18 01/25/17 00:40 98.5 F 58 L 58 L 58 L 58 L 22 01/24/17 21:26 122/84 01/24/17 21:25 90 20 01/24/17 20:35 98.2 F 96 H 20 01/24/17 20:27 01/24/17 17:05 98.7 F 94 H 20 01/24/17 12:00 98.2 F 100 H 18 BP Pulse Ox 01/25/17 09:15 137/95 100 01/25/17 07:56 100 01/25/17 04:40 122/79 100 01/25/17 00:40 108/56 97 01/24/17 21:26 01/24/17 21:25 01/24/17 20:35 119/81 98 01/24/17 20:27 100 01/24/17 17:05 106/76 98 01/24/17 12:00 110/81 98 - Physical Examination General: No Apparent Distress HEENT: Positive: PERRL Neck: Positive: trachea midline Cardiac: Positive: Reg Rate and Rhythm Neuro: Positive: Grossly Intact - Labs and Meds Coagulation 01/25/17 Range/Units 05:37 PT 20.0 H (12.2-14.9) Sec. INR 1.61 H (0.87-1.13) CBC 01/25/17 Range/Units 05:37 WBC 9.1 (4.5-11.0) K/mm3 RBC 4.57 (3.65-5.03) M/mm3 Hgb 12.7 (11.8-15.2) gm/dl Hct 40.0 (35.5-45.6) % Plt Count 298 (140-440) K/mm3 Lymph # 2.3 (1.2-5.4) K/mm3 [place] # 1.0 H (0.0-0.8) K/mm3 Eos # 0.0 (0.0-0.4) K/mm3 Baso # 0.1 (0.0-0.1) K/mm3 Comprehensive Metabolic Panel 01/24/17 01/25/17 Range/Units 19:18 05:37 Sodium 134 L (137-145) mmol/L Potassium 4.7 5.7 H D (3.6-5.0) mmol/L Chloride 99.3 (98-107) mmol/L Carbon Dioxide 21 L 21 L (22-30) mmol/L BUN 28 H 28 H (9-20) mg/dL Creatinine 0.9 1.0 (0.8-1.5) mg/dL Glucose 190 H 107 H (75-100) mg/dL Calcium 8.2 L 8.9 (8.4-10.2) mg/dL - Imaging and Cardiology EKG: image reviewed (Sinus tach, with inferior and septal ischemia- indeterminate age)
[2017-01-25] MEDS: LOPRESSOR PO SCH ×2 (11:20→21:23)
[2017-01-25] MEDS ORDERED: KIONEX PO ONE (12:00)
--- NOTE | 2017-01-25 15:19 | Progress Note ---
Assessment and Plan 61-year-old male with history of hypertension, congestive heart failure with recent acute SC in November 2016 pw with chest pressure, ROSARIO, orthopnea. LLE DVT and PE -continue heparin gtt -warfarin was initiated acute on chronic Congestive heart failure, sytolic Stage C ischemic cardiomyopathy with LVEF 8% and akinesis of the apical and anterior salcido consistent with previous transmural SC in the LAD distribution. now euvolemic, off lasix, optimize cardiac meds -echo shows ef of 8%, end stage CHF -cardiology following Atypical chest pain -cardiology consult appreciated -Persantin thallium stress test done on this admission demonstrates a severe dilated cardiomyopathy and a large fixed apical and septal wall defect without reversible ischemia. This defect is consistent with his recent large myocardial infarction. We will continue medical therapy for his coronary artery disease and ischemic cardiomyopathy Peripheral Arterial disease vascular surgery input appreciated, poor pulses in LLE Patient will need to be medically stabilized prior to any vascular interventions. * Left big toe stump will need to be debrided * CT angiogram of abdomen with lower extremity runoff showed Extensive atherosclerotic disease, bilateral iliac artery occlusions and stenosis both arterial flow is patent to the feet * plan for intervention tomorrow after cardiology and pulmonary clearance Ventricular tachycardia Patient apparently had an episode of V. tach on tele. Cardiology is aware, I counseled the patient about possibility of needing AICD/LifeVest, given his low EF, he is at high risk for sudden cardiac , due to V. tach or V. fib. He verbalized understanding Acute hypoxic respiratory failure -likely due to CHF and PE -rx underlying cause, continue oxygen supplementation -improved Hypertension continue BP meds MILY/vasomotor nephropathy -likely due to aggressive diuresis -Lasix has been discontinued, creatinine is improved Hyperlipidemia Continue statins DVT prophylaxis fully anticoagulated Subjective Date of service: 01/25/17 Interval history: Patient seen and examined. Medical records and medication list reviewed. No acute event overnight noted by the RN. Patient denies any chest pain or difficulty breathing. Patient is tolerating diet. Discussed plan of care at bedside with patient. Objective - Exam Narrative Exam: GENERAL: well-developed and well-nourished WM lying on bed appeared to be in no discomfort. HEENT: Normocephalic. Atraumatic. No conjunctival congestion or icterus. Patient has moist mucous membranes. NECK: Supple. Trachea midline. CHEST/LUNGS: Clear to auscultated bilaterally, breathing nonlabored. No wheezes crackles or rhonchi. HEART/CARDIOVASCULAR: Regular in rate and rhythm. S1 and S2 positive. ABDOMEN: Abdomen is soft, nontender. Patient has normal bowel sounds. SKIN: There is no rash. Warm and dry. NEURO: No focal motor deficit. Follows command. MUSCULOSKELETAL: No joint effusion or tenderness. EXTRIMITY: No edema, no cyanosis or clubbing. wound dressing on Left foot PSYCH: Cooperative. - Constitutional Vitals: Vital Signs - 12hr 01/25/17 01/25/17 01/25/17 04:40 07:56 09:15 Temperature 98.6 F 97.6 F Pulse Rate Pulse Rate [ 92 H 95 H Apical] Pulse Rate [ 92 H 98 H Left Dorsalis Pedis] Pulse Rate [ 92 H 98 H Left Posterior Tibial] Pulse Rate [ 92 H 95 H Left Radial] Respiratory 18 20 Rate Blood Pressure Blood Pressure 122/79 137/95 [Left Radial Artery] O2 Sat by Pulse 100 100 100 Oximetry 01/25/17 11:19 Temperature Pulse Rate 81 Pulse Rate [ Apical] Pulse Rate [ Left Dorsalis Pedis] Pulse Rate [ Left Posterior Tibial] Pulse Rate [ Left Radial] Respiratory Rate Blood Pressure 137/95 Blood Pressure [Left Radial Artery] O2 Sat by Pulse Oximetry - Labs CBC & Chem 7: 01/26/17 05:13 01/25/17 19:09 Labs: Abnormal lab results 01/24/17 01/25/17 01/25/17 Range/Units 19:18 05:37 05:37 RDW 17.4 H (13.2-15.2) % [place] % (Auto) 11.4 H (0.0-7.3) % [place] # 1.0 H (0.0-0.8) K/mm3 PT 20.0 H (12.2-14.9) Sec. INR 1.61 H (0.87-1.13) Sodium 134 L (137-145) mmol/L Potassium (3.6-5.0) mmol/L Carbon Dioxide 21 L (22-30) mmol/L BUN 28 H (9-20) mg/dL Glucose 190 H (75-100) mg/dL Calcium 8.2 L (8.4-10.2) mg/dL 01/25/17 Range/Units 05:37 RDW (13.2-15.2) % [place] % (Auto) (0.0-7.3) % [place] # (0.0-0.8) K/mm3 PT (12.2-14.9) Sec. INR (0.87-1.13) Sodium (137-145) mmol/L Potassium 5.7 H D (3.6-5.0) mmol/L Carbon Dioxide 21 L (22-30) mmol/L BUN 28 H (9-20) mg/dL Glucose 107 H (75-100) mg/dL Calcium (8.4-10.2) mg/dL
[2017-01-25] MEDS: COUMADIN PO SCH (17:03)
[2017-01-25 20:00] LABS: Anion Gap 21 mmol/L; BUN/Creatinine Ratio 27.27; Blood Urea Nitrogen 30 mg/dL (9-20); Calcium 8.5 mg/dL (8.4-10.2); Carbon Dioxide 19 mmol/L (22-30); Glucose 157 mg/dL (75-100); Potassium 4.9 mmol/L (3.6-5.0); Sodium 133 mmol/L (137-145)
[2017-01-26 05:58] LABS: Hematocrit 38.7 % (35.5-45.6); Hemoglobin 12.3 gm/dl (11.8-15.2)
[2017-01-26 06:09] LABS: INR 1.64 (0.87-1.13)
[2017-01-26] MEDS: LOPRESSOR PO SCH ×2 (09:06→21:28)
[2017-01-26] MEDS: ZESTRIL PO SCH (09:07)
--- NOTE | 2017-01-26 09:27 | Progress Note ---
Assessment and Plan Chest pain is atypical negative MPI this admission Acute DVT/PE initiated on IV heparin and warfarin Bilateral Pleural effusion Ischemic Cardiomyopathy EF <10% Hx of recent [place]/CAD fully compliant with dual oral antiplatelet therapy as an outpatient per pt. Now only on plavix therapy. Anxiety Bilateral LE peripheral vascular disease Hyperkalemia Recommendations: Continue medical therapy for his cardiomyopathy and coronary artery disease. Patient is awaiting possible L leg vascular surgery. Cardiac status is stable, asymptomatic for surgery; recommendation is NO interruption of Plavix therapy. Moderate cardiac nataly-op risk. ICD for primary prevention will be indicated if LV dysfunction persists AFTER at least 6-9 months of optimal medical therapy. Subjective Date of service: 01/26/17 Interval history: Patient denies chest pain or shortness of breath. Awaits LLE vascular surgery. Objective Vital Signs Temp Pulse Pulse Pulse Pulse Pulse Resp 01/26/17 08:05 97.9 F 96 H 20 01/26/17 07:43 01/26/17 05:36 98.2 F 58 L 58 L 58 L 58 L 18 01/26/17 00:15 97.6 F 68 68 68 68 18 01/25/17 23:00 94 H 01/25/17 20:22 97.6 F 98 H 98 H 98 H 98 H 20 01/25/17 18:54 91 H 01/25/17 17:58 98.6 F 94 H 94 H 94 H 94 H 18 01/25/17 11:19 81 BP BP Pulse Ox 01/26/17 08:05 139/93 8 L 01/26/17 07:43 100 01/26/17 05:36 121/68 99 01/26/17 00:15 110/64 92 01/25/17 23:00 01/25/17 20:22 135/68 100 01/25/17 18:54 01/25/17 17:58 109/81 98 01/25/17 11:19 137/95 - Physical Examination General: No Apparent Distress HEENT: Positive: PERRL Neck: Positive: trachea midline Cardiac: Positive: Reg Rate and Rhythm Neuro: Positive: Grossly Intact - Labs and Meds Coagulation 01/26/17 Range/Units 05:13 PT 20.3 H (12.2-14.9) Sec. INR 1.64 H (0.87-1.13) CBC 07/26/17 Range/Units 05:13 Hgb 12.3 (11.8-15.2) gm/dl Hct 38.7 (35.5-45.6) % Plt Count 297 (140-440) K/mm3 Comprehensive Metabolic Panel 01/25/17 01/25/17 Range/Units 14:24 19:09 Sodium 133 L (137-145) mmol/L Potassium 4.8 4.9 (3.6-5.0) mmol/L Chloride 98.0 (98-107) mmol/L Carbon Dioxide 19 L (22-30) mmol/L BUN 30 H (9-20) mg/dL Creatinine 1.1 (0.8-1.5) mg/dL Glucose 157 H (75-100) mg/dL Calcium 8.5 (8.4-10.2) mg/dL - Imaging and Cardiology EKG: image reviewed (Sinus tach, with inferior and septal ischemia- indeterminate age)
[2017-01-26] MEDS ORDERED: SUBLIMAZE ONE (09:44)
[2017-01-26] MEDS ORDERED: DIPRIVAN 10 MG/ML IV ONE ×2 (09:44)
[2017-01-26] MEDS ORDERED: DILAUDID ONE (09:44)
[2017-01-26] MEDS ORDERED: XYLOCAINE MPF 2% ONE (09:47)
[2017-01-26] MEDS ORDERED: ZOFRAN ONE (09:48)
[2017-01-26] MEDS ORDERED: PROAIR IH ONE (09:51)
--- NOTE | 2017-01-26 09:53 | Anesthesia Day of Surgery ---
Anesthesia Day of Surgery - Day of Surgery Patient Examined: Yes Patient H&P Reviewed: Yes Patient is NPO: Yes
--- NOTE | 2017-01-26 09:53 | Anesthesia Consultation ---
Anesthesia Consult and Med Hx Date of service: 01/26/17 - Airway Anesthetic Teeth Evaluation: Good ROM Head & Neck: Adequate Mental/Hyoid Distance: Adequate Mallampati Class: Class II Intubation Access Assessment: Probably Good - Pulmonary Exam CTA: Yes - Cardiac Exam Cardiac Exam: RRR - Pre-Operative Health Status ASA Pre-Surgery Classification: ASA3 Proposed Anesthetic Plan: MAC - Pulmonary Hx Respiratory Symptoms: Yes - Cardiovascular System Hx Hypertension: Yes Hx Coronary Artery Disease: Yes Hx Heart Attack/AMI: Yes (11/28/16)
[2017-01-26] MEDS ORDERED: HEPARIN/NS 5000 UNIT/500ML(CATH LAB) 1,000 ML IR ONE (09:55)
[2017-01-26] MEDS ORDERED: XYLOCAINE 2% INFILTRATI ONE (09:56)
[2017-01-26] MEDS ORDERED: DIPRIVAN 10 MG/ML 1,000 MG/100 ML BOTTLE IV ONE (09:59)
[2017-01-26] MEDS ORDERED: NEO SYNEPHRINE/NS Syringe(OR USE) IV ONE (10:00)
[2017-01-26] MEDS ORDERED: NACL 0.9% 1000 ML 1,000 ML ONE (10:09)
[2017-01-26] MEDS ORDERED: VERSED ONE (10:15)
[2017-01-26] MEDS ORDERED: VANCOMYCIN/NS 1 GM/250 ML 1 GM/250 ML BAG IV ONE (10:37)
--- NOTE | 2017-01-26 10:52 | Progress Note ---
Assessment and Plan Chest pain.Inactive Ischemic cardiomyopathy, severe AMI December 2016 Incidental pulmonary embolism, right lower lobe. Controlled,no Sx Iliac occlusion.Post run off procedure Peripheral vascular disease. DVT Recommendations Complete standard anticoagulation,see also Vascular , Cards recommendations No need for oxygen- steady oximetry at 98% on R/A. Cards f/u , see prior recommendations , comments Can be D/H from pulmonary standpoint, once the above completed Subjective Date of service: 01/26/17 Interval history: Multiple complains,hungry wants to go home. Seeing post op. No chest pain.No SOB nor bleeding reported. Objective Vital Signs - 12hr 01/25/17 01/26/17 01/26/17 23:00 00:15 05:36 Temperature 97.6 F 98.2 F Pulse Rate 94 H Pulse Rate [ 68 58 L Apical] Pulse Rate [ 68 58 L Left Dorsalis Pedis] Pulse Rate [ 68 58 L Left Posterior Tibial] Pulse Rate [ 68 58 L Left Radial] Respiratory 18 18 Rate Blood Pressure 110/64 121/68 [Left Radial Artery] O2 Sat by Pulse 92 99 Oximetry 01/26/17 01/26/17 07:43 08:05 Temperature 97.9 F Pulse Rate Pulse Rate [ Apical] Pulse Rate [ Left Dorsalis Pedis] Pulse Rate [ Left Posterior Tibial] Pulse Rate [ 96 H Left Radial] Respiratory 20 Rate Blood Pressure 139/93 [Left Radial Artery] O2 Sat by Pulse 100 8 L Oximetry Constitutional: no acute distress, alert Eyes: non-icteric ENT: oropharynx moist Neck: supple, no lymphadenopathy, no JVD Ascultation: Bilateral: clear, diminished breath sounds Cardiovascular: regular rate and rhythm Gastrointestinal: normoactive bowel sounds, non-distended Extremities: other (poor pulses. Draped wound left foot,) Neurologic: normal mental status, non-focal exam, CN II-XII normal Psychiatric: mood appropriate, affect normal CBC and BMP: 01/26/17 05:13 01/25/17 19:09 ABG, PT/INR, D-dimer: PT/INR, D-dimer PT 20.3 Sec. (12.2-14.9) H 01/26/17 05:13 INR 1.64 (0.87-1.13) H 01/26/17 05:13 D-Dimer 3206.82 ng/mlDDU (0-234) H 01/19/17 20:26 Abnormal lab findings: Abnormal Labs 01/19/17 01/19/17 01/19/17 22:30 22:30 22:31 RDW [place] % (Auto) [place] # PT INR Heparin Anti-Xa Level Sodium Potassium Chloride Carbon Dioxide 20 L BUN 37 H Glucose 131 H Calcium AST ALT Alkaline Phosphatase Total Creatine Kinase 28 L CK-MB (CK-2) Rel Index 7.8 H Troponin T 0.274 H* Total Protein Albumin 01/19/17 01/19/17 01/20/17 23:58 23:58 04:54 RDW 17.3 H 17.0 H [place] % (Auto) 8.9 H 8.6 H [place] # PT INR Heparin Anti-Xa Level Sodium Potassium Chloride Carbon Dioxide BUN Glucose Calcium AST ALT Alkaline Phosphatase Total Creatine Kinase CK-MB (CK-2) Rel Index Troponin T 0.298 H* Total Protein Albumin 01/20/17 01/20/17 01/20/17 04:54 04:54 04:54 RDW [place] % (Auto) [place] # PT INR Heparin Anti-Xa Level Sodium Potassium Chloride Carbon Dioxide BUN 41 H Glucose Calcium AST 105 H ALT 113 H Alkaline Phosphatase 150 H Total Creatine Kinase 24 L CK-MB (CK-2) Rel Index 8.7 H Troponin T 0.313 H* Total Protein 6.2 L Albumin 3.1 L 01/20/17 01/20/17 01/20/17 13:47 13:47 20:29 RDW [place] % (Auto) [place] # PT 18.7 H INR 1.48 H Heparin Anti-Xa Level Sodium Potassium Chloride Carbon Dioxide BUN Glucose Calcium AST ALT Alkaline Phosphatase Total Creatine Kinase 38 L CK-MB (CK-2) Rel Index 7.1 H Troponin T 0.245 H* D Total Protein Albumin 01/21/17 01/22/17 01/22/17 17:01 00:58 01:05 RDW [place] % (Auto) [place] # PT INR Heparin Anti-Xa Level < 0.10 L 0.12 L Sodium 135 L Potassium Chloride Carbon Dioxide 21 L BUN 50 H Glucose Calcium AST ALT Alkaline Phosphatase Total Creatine Kinase CK-MB (CK-2) Rel Index Troponin T Total Protein Albumin 01/22/17 01/22/17 01/22/17 05:41 18:48 20:29 RDW [place] % (Auto) [place] # PT 22.0 H INR 1.82 H Heparin Anti-Xa Level 0.23 L Sodium 135 L Potassium Chloride 97.7 L Carbon Dioxide BUN 42 H Glucose 110 H Calcium 7.9 L AST ALT Alkaline Phosphatase Total Creatine Kinase CK-MB (CK-2) Rel Index Troponin T Total Protein Albumin 01/23/17 01/23/17 01/24/17 09:01 18:56 03:25 RDW [place] % (Auto) [place] # PT 18.0 H 20.3 H INR 1.41 H 1.64 H Heparin Anti-Xa Level Sodium 133 L Potassium Chloride 97.7 L Carbon Dioxide 20 L BUN 32 H Glucose 135 H Calcium 7.8 L AST ALT Alkaline Phosphatase Total Creatine Kinase CK-MB (CK-2) Rel Index Troponin T Total Protein Albumin 01/24/17 01/25/17 01/25/17 19:18 05:37 05:37 RDW 17.4 H [place] % (Auto) 11.4 H [place] # 1.0 H PT 20.0 H INR 1.61 H Heparin Anti-Xa Level Sodium 134 L Potassium Chloride Carbon Dioxide 21 L BUN 28 H Glucose 190 H Calcium 8.2 L AST ALT Alkaline Phosphatase Total Creatine Kinase CK-MB (CK-2) Rel Index Troponin T Total Protein Albumin 01/25/17 01/25/17 01/26/17 05:37 19:09 05:13 RDW [place] % (Auto) [place] # PT 20.3 H INR 1.64 H Heparin Anti-Xa Level Sodium 133 L Potassium 5.7 H D Chloride Carbon Dioxide 21 L 19 L BUN 28 H 30 H Glucose 107 H 157 H Calcium AST ALT Alkaline Phosphatase Total Creatine Kinase CK-MB (CK-2) Rel Index Troponin T Total Protein Albumin
[2017-01-26] MEDS: NITROGLYCERIN SYRINGE 3 ML ONE ×2 (11:06→11:15)
[2017-01-26] MEDS: CALAN ONE ×2 (11:07→11:15)
[2017-01-26] MEDS: HEPARIN 10,000 UNITS/10 ML ONE ×2 (11:07→11:15)
[2017-01-26] MEDS ORDERED: NITROGLYCERIN SYRINGE 6 ML ONE (13:13)
--- NOTE | 2017-01-26 14:15 | Event Note ---
Date: 01/26/17 Sutures removed from left great toe wound. Pt has necrotic tissue of his left great toe remnant. Would refer back to his surgeon after discharge for further wound management.
[2017-01-26] MEDS ORDERED: ROBINUL ONE (14:23)
--- NOTE | 2017-01-26 15:35 | Progress Note ---
Assessment and Plan 61-year-old male with history of hypertension, congestive heart failure with recent acute MS in November 2016 pw with chest pressure, ROSARIO, orthopnea. LLE DVT and PE -continue heparin gtt -warfarin was initiated acute on chronic Congestive heart failure, sytolic Stage C ischemic cardiomyopathy with LVEF 8% and akinesis of the apical and anterior salcido consistent with previous transmural MS in the LAD distribution. now euvolemic, off lasix, optimize cardiac meds -echo shows ef of 8%, end stage CHF -cardiology following Atypical chest pain -cardiology consult appreciated -Persantin thallium stress test done on this admission demonstrates a severe dilated cardiomyopathy and a large fixed apical and septal wall defect without reversible ischemia. This defect is consistent with his recent large myocardial infarction. We will continue medical therapy for his coronary artery disease and ischemic cardiomyopathy Peripheral Arterial disease s/p angioplasty today Procedure: 1. Ultrasound guided access of the left radial artery. 2. Distal aortography and bilateral common iliac arteriography. 3. Left common and superficial arteriography. 4. Left popliteal arteriography. 5. Left infrapopliteal arteriography with distal runoff. 6. Left external iliac balloon angioplasty 7. Left mid superficial femoral artery balloon angioplasty He will further f/u out pt Ventricular tachycardia Patient apparently had an episode of V. tach on tele. Cardiology is aware, ICD for primary prevention will be indicated if LV dysfunction persists AFTER at least 6-9 months of optimal medical therapy. Acute hypoxic respiratory failure -likely due to CHF and PE -rx underlying cause, continue oxygen supplementation -improved Hypertension continue BP meds MILY/vasomotor nephropathy -likely due to aggressive diuresis -Lasix has been discontinued, creatinine is improved Hyperlipidemia Continue statins DVT prophylaxis fully anticoagulated Subjective Date of service: 01/26/17 Interval history: Patient seen and examined. Medical records and medication list reviewed. No acute event overnight noted by the RN. Patient denies any chest pain or difficulty breathing. s/p angioplasty today Discussed plan of care at bedside with patient. Objective - Exam Narrative Exam: GENERAL: well-developed and well-nourished WM lying on bed appeared to be in no discomfort. HEENT: Normocephalic. Atraumatic. No conjunctival congestion or icterus. Patient has moist mucous membranes. NECK: Supple. Trachea midline. CHEST/LUNGS: Clear to auscultated bilaterally, breathing nonlabored. No wheezes crackles or rhonchi. HEART/CARDIOVASCULAR: Regular in rate and rhythm. S1 and S2 positive. ABDOMEN: Abdomen is soft, nontender. Patient has normal bowel sounds. SKIN: There is no rash. Warm and dry. NEURO: No focal motor deficit. Follows command. MUSCULOSKELETAL: No joint effusion or tenderness. EXTRIMITY: No edema, no cyanosis or clubbing. wound dressing on Left foot PSYCH: Cooperative. - Constitutional Vitals: Vital Signs - 12hr 01/26/17 01/26/17 01/26/17 05:36 07:43 08:05 Temperature 98.2 F 97.9 F Pulse Rate Pulse Rate [ 58 L Apical] Pulse Rate [ 58 L Left Dorsalis Pedis] Pulse Rate [ 58 L Left Posterior Tibial] Pulse Rate [ 58 L 96 H Left Radial] Respiratory 18 20 Rate Blood Pressure Blood Pressure 121/68 139/93 [Left Radial Artery] O2 Sat by Pulse 99 100 8 L Oximetry 01/26/17 01/26/17 01/26/17 13:37 13:45 14:00 Temperature 97.5 F L Pulse Rate 82 86 86 Pulse Rate [ Apical] Pulse Rate [ Left Dorsalis Pedis] Pulse Rate [ Left Posterior Tibial] Pulse Rate [ Left Radial] Respiratory 18 12 12 Rate Blood Pressure 118/82 125/86 127/91 Blood Pressure [Left Radial Artery] O2 Sat by Pulse 98 96 94 Oximetry - Labs CBC & Chem 7: 01/26/17 05:13 01/26/17 18:42 Labs: Abnormal lab results 01/25/17 01/26/17 Range/Units 19:09 05:13 PT 20.3 H (12.2-14.9) Sec. INR 1.64 H (0.87-1.13) Sodium 133 L (137-145) mmol/L Carbon Dioxide 19 L (22-30) mmol/L BUN 30 H (9-20) mg/dL Glucose 157 H (75-100) mg/dL
--- NOTE | 2017-01-26 15:59 | Operative Report ---
Operative Report Operative Report: Procedure: 1. Ultrasound guided access of the left radial artery. 2. Distal aortography and bilateral common iliac arteriography. 3. Left common and superficial arteriography. 4. Left popliteal arteriography. 5. Left infrapopliteal arteriography with distal runoff. 6. Left external iliac balloon angioplasty 7. Left mid superficial femoral artery balloon angioplasty Date of Procedure: 01/26/2017 History/Indication: This is a 61-year-old male with a complex medical history, including a nonhealing left great toe amputation site. He has a history of coronary stent placement and left common femoral endarterectomy. CT angiography showed a complete right external iliac occlusion. Thus radial access was used for this procedure Physician: Myrna Landry MD Technique/Procedural Details: The patient was placed in the supine position and prepped and draped in the usual sterile fashion. A timeout was performed. Ultrasound imaging of the left distal radial artery was performed, and permanent images were acquired. Local anesthetic was administered. With ultrasound guidance, a 21-gauge needle was used to access the left radial artery. This was exchanged for a 5 [place] sheath over a mandrel wire. A radial cocktail was administered. A Armstrong wire and vertebral catheter were used to navigate into the mid aorta. The vertebral catheter was exchanged for a pigtail flush catheter. Mid and distal aortography was performed. The pigtail catheter was then exchanged over the Armstrong wire for a long angled 4 [place] glide catheter. This was used to maneuver into the left common iliac artery. From this position left common and external iliac arteriography was performed. The glide catheter was advanced and common and superficial femoral arteriography was performed. The glide catheter was again advanced, and popliteal and infrapopliteal arteriography was performed. Based on the imaging a 7 mm, 4 cm balloon was used to treat an external iliac artery stenosis. The Armstrong wire was removed, and a V 18 wire was advanced to the popliteal artery. Over this wire, a 5 mm, 12 cm balloon was used to treat the superficial femoral artery. Both the external iliac and superficial femoral artery were again angioplastied with the aforementioned balloons due to tiny dissections at both locations. Final arteriography was performed. All wires and catheters were removed. Hemostasis was achieved with a transradial band. The patient tolerated the procedure well, without immediate complication. Sedation was performed with the help of the anesthesiology service. Discussion: The mid aorta is normal in appearance. There is a 50% stenosis at the ostium of the left common iliac artery. The right external iliac artery is completely occluded. There is a region of narrowing and change in caliber at the distal left external iliac artery. This is likely related to the patient's prior left common femoral endarterectomy. This was treated with a 7 mm balloon and went from a 60% stenosis to a 20% stenosis. A tiny, [id number] residual dissection was seen on final arteriography. A 70% elongated narrowing in the mid superficial femoral artery was treated with a 5 mm balloon. There was no residual stenosis after angioplasty. However , there was noted to be an additional tiny [id number] dissection. There is irregularity of the popliteal artery, but there is normal flow in this region. There is 3 vessel proximal runoff. However, both the peroneal and anterior tibial artery are attenuated past their mid points. Dominant supply to the foot is the posterior tibial artery. Nitroglycerin was administered at the conclusion of the case to address spasm in the posterior tibial artery origin. Should his poor wound healing continued to be an issue, revascularization of the anterior tibial artery and possibly the pedal arch can be performed with a antegrade approach. Specimen: None EBL: <5 cc
[2017-01-26] MEDS: COUMADIN PO SCH (16:01)
[2017-01-26] MEDS: PLAVIX PO SCH (16:07)
--- NOTE | 2017-01-26 16:11 | Vascular Lab Report ---
MISCELLANEOUS VESSEL IDENTIFICATION: COMMENTS ON THE SCAN: The left radial artery was identified and under real-time ultrasound guidance was cannulated. IMPRESSION: Successful ultrasound guided arterial cannulation.
[2017-01-26 19:48] LABS: Anion Gap 18 mmol/L; BUN/Creatinine Ratio 31.25; Blood Urea Nitrogen 25 mg/dL (9-20); Calcium 8.5 mg/dL (8.4-10.2); Carbon Dioxide 24 mmol/L (22-30); Chloride 100.9 mmol/L (98-107); Glucose 117 mg/dL (75-100); Potassium 4.8 mmol/L (3.6-5.0); Sodium 138 mmol/L (137-145)
[2017-01-26] MEDS: HEPARIN/ 0.45% NACL-25,000 UNIT/500 ML 25,000 UNIT/500 ML BAG IV SCH (21:28)
[2017-01-27 06:45] LABS: INR 1.83 (0.87-1.13)
--- NOTE | 2017-01-27 10:24 | Progress Note ---
Assessment and Plan Chest pain is atypical negative MPI this admission Acute DVT/PE initiated on IV heparin and warfarin Bilateral Pleural effusion Ischemic Cardiomyopathy EF <10% Hx of recent [place]/CAD on plavix therapy Anxiety Bilateral LE peripheral vascular disease Hyperkalemia Recommendations: Continue medical therapy for his cardiomyopathy and coronary artery disease. ICD for primary prevention will be indicated if LV dysfunction persists AFTER at least 6-9 months of optimal medical therapy. Cardiac status is stable. Subjective Date of service: 01/27/17 Interval history: Patient is resting in bed comfortably. He denies chest pain. No events on telemetry overnight. Objective Vital Signs Temp Pulse Pulse Resp BP BP Pulse Ox 01/27/17 08:20 98 01/27/17 04:48 98.2 F 74 18 131/64 99 01/27/17 03:30 96 H 01/27/17 00:22 97.6 F 84 20 110/68 96 01/26/17 21:00 100 01/26/17 20:07 98.6 F 99 H 18 120/88 99 01/26/17 19:36 92 H 01/26/17 16:45 97.3 F L 98 H 20 128/81 91 01/26/17 14:00 86 12 127/91 94 01/26/17 13:45 86 12 125/86 96 01/26/17 13:37 97.5 F L 82 18 118/82 98 - Physical Examination General: No Apparent Distress HEENT: Positive: PERRL Neck: Positive: trachea midline Cardiac: Positive: Reg Rate and Rhythm - Labs and Meds Coagulation 01/27/17 Range/Units 05:33 PT 22.1 H (12.2-14.9) Sec. INR 1.83 H (0.87-1.13) Comprehensive Metabolic Panel 01/26/17 Range/Units 18:42 Carbon Dioxide 24 (22-30) mmol/L BUN 25 H (9-20) mg/dL Creatinine 0.8 (0.8-1.5) mg/dL Glucose 117 H (75-100) mg/dL Calcium 8.5 (8.4-10.2) mg/dL - Imaging and Cardiology EKG: image reviewed (Sinus tach, with inferior and septal ischemia- indeterminate age)
[2017-01-27] MEDS: LOPRESSOR PO SCH ×2 (10:27→22:04)
[2017-01-27] MEDS: ZESTRIL PO SCH (10:28)
[2017-01-27] MEDS: PLAVIX PO SCH (10:28)
--- NOTE | 2017-01-27 12:26 | Progress Note ---
Assessment and Plan Doing well overall. Hopefully the optimized vascularization will aid in healing the left toe wound. Doppler signals would indicate that he at least has some degree of arterial flow near the wound. Continue Plavix and Aspirin. I would get the input of either podiatry or wound care for further management of the left foot wound. Will follow. Subjective Date of service: 01/27/17 Interval history: Pt feels well overall. No acute events overnight. Currently eating lunch. The radial dressing is CDI, and the radial pulse is palpable. The left toe wound is grossly unchanged in appearance. He has doppler signals in the left PT and DP. There is a faint signal at the base of the left first toe surgical site as well. Objective - Constitutional Vitals: Vital Signs - 12hr 01/27/17 01/27/17 01/27/17 00:22 03:30 04:48 Temperature 97.6 F 98.2 F Pulse Rate 96 H Pulse Rate [ 84 74 Left Radial] Respiratory 20 18 Rate Blood Pressure Blood Pressure 110/68 131/64 [Left Radial Artery] O2 Sat by Pulse 96 99 Oximetry 01/27/17 01/27/17 01/27/17 08:15 08:20 10:27 Temperature 98.2 F Pulse Rate 68 Pulse Rate [ 102 H Left Radial] Respiratory 20 Rate Blood Pressure 128/78 Blood Pressure 119/77 [Left Radial Artery] O2 Sat by Pulse 100 98 Oximetry 01/27/17 10:28 Temperature Pulse Rate 78 Pulse Rate [ Left Radial] Respiratory Rate Blood Pressure 128/78 Blood Pressure [Left Radial Artery] O2 Sat by Pulse Oximetry General appearance: Present: no acute distress - EENT ENT: hearing intact - Respiratory Respiratory effort: normal Extremities: pulses intact (Left PT and DP doppler audible) Extremity abnormal: ulceration, black - Integumentary Integumentary: clear, warm, dry - Neurologic Neurologic: moves all extremities - Psychiatric Psychiatric: memory intact, appropriate mood/affect, intact judgment & insight - Labs CBC & Chem 7: 01/26/17 05:13 01/26/17 18:42 Labs: Abnormal lab results 01/26/17 01/27/17 Range/Units 18:42 05:33 PT 22.1 H (12.2-14.9) Sec. INR 1.83 H (0.87-1.13) BUN 25 H (9-20) mg/dL Glucose 117 H (75-100) mg/dL
--- NOTE | 2017-01-27 13:11 | Progress Note ---
Assessment and Plan Imp: 1. Acute PE 2. Acute DVT 3. ICMP 4. A/C systolic CHF -> pleural effusions 5. Chronic nicotine dependence, cigarettes Rec: 1. Heparin -> Coumadin minimum of 6 months 2. Wean O2 to off; check need for home O2 prior to d/c 3. Monitor volume status closely 4. D/c smoking permanently Plan of care reviewed w/ patient, he understands/agrees Subjective Date of service: 01/27/17 Principal diagnosis: acute dvt and pe Interval history: No events. No SOB, chest pain, wheezing, cough. On 3L NC. Active Medications Acetaminophen (Tylenol) 650 mg PO Q4H PRN PRN Reason: Pain MILD(1-3)/Fever >100.5/SAUCEDO Last Admin: 01/23/17 05:01 Dose: 650 mg Atorvastatin Calcium (Lipitor) 40 mg PO QHS [facility] Last Admin: 01/26/17 21:29 Dose: 40 mg Bisacodyl (Dulcolax) 10 mg UT QDAY PRN PRN Reason: Constipation unrelieved by MOM Clopidogrel Bisulfate (Plavix) 75 mg PO QDAY [facility] Last Admin: 01/27/17 10:28 Dose: 75 mg Hydromorphone HCl (Dilaudid) 0.5 mg IV Q3H PRN PRN Reason: Pain , Severe (7-10) Last Admin: 01/24/17 21:24 Dose: 0.5 mg Heparin Sodium/Sodium Chloride (Heparin/ 0.45% Nacl-25,000 Unit/500 Ml) 25,000 unit in 500 mls @ 18 mls/hr IV TITRATE AMRIK; 900 UNITS/HR PRN Reason: Protocol Last Titration: 01/27/17 02:43 Dose: 1,250 units/hr, 25 mls/hr Lisinopril (Zestril) 2.5 mg PO QDAY [facility] Last Admin: 01/27/17 10:28 Dose: 2.5 mg Magnesium Hydroxide (Milk Of Magnesia) 30 ml PO Q4H PRN PRN Reason: Constipation Metoprolol Tartrate (Lopressor) 50 mg PO BID [facility] Last Admin: 01/27/17 10:27 Dose: 50 mg Ondansetron HCl (Zofran) 4 mg IV Q8H PRN PRN Reason: N/V unrelieved by Reglan Sodium Chloride (Sodium Chloride Flush Syringe 10 Ml) 10 ml IV PRN PRN PRN Reason: LINE FLUSH Tramadol HCl (Ultram) 50 mg PO Q4HR PRN PRN Reason: Pain Last Admin: 01/22/17 21:24 Dose: 50 mg Warfarin Sodium (Coumadin Pharmacy To Dose) 1 each PO PKCONSULT AMRIK PRN Reason: Protocol Warfarin Sodium (Coumadin) 8 mg PO DAILY@1700 AMRIK Last Admin: 01/26/17 16:01 Dose: 8 mg Zolpidem Tartrate (Ambien) 5 mg PO QHS PRN PRN Reason: Insomnia Last Admin: 01/24/17 21:27 Dose: 5 mg Objective Vital Signs - 12hr 01/27/17 01/27/17 01/27/17 03:30 04:48 08:15 Temperature 98.2 F 98.2 F Pulse Rate 96 H Pulse Rate [ 74 102 H Left Radial] Respiratory 18 20 Rate Blood Pressure Blood Pressure 131/64 119/77 [Left Radial Artery] O2 Sat by Pulse 99 100 Oximetry 01/27/17 01/27/17 01/27/17 08:20 10:27 10:28 Temperature Pulse Rate 68 78 Pulse Rate [ Left Radial] Respiratory Rate Blood Pressure 128/78 128/78 Blood Pressure [Left Radial Artery] O2 Sat by Pulse 98 Oximetry Constitutional: no acute distress, alert Eyes: non-icteric ENT: oropharynx moist Neck: supple, no lymphadenopathy Ascultation: Bilateral: diminished breath sounds (bases) Cardiovascular: regular rate and rhythm (no mrg) Gastrointestinal: normoactive bowel sounds, non-distended Extremities: no cyanosis, no edema Neurologic: normal mental status, non-focal exam, pupils equal and round, CN II- XII normal Psychiatric: mood appropriate, affect normal CBC and BMP: 01/26/17 05:13 01/26/17 18:42 ABG, PT/INR, D-dimer: PT/INR, D-dimer PT 22.1 Sec. (12.2-14.9) H 01/27/17 05:33 INR 1.83 (0.87-1.13) H 01/27/17 05:33 D-Dimer 3206.82 ng/mlDDU (0-234) H 01/19/17 20:26 Abnormal lab findings: Abnormal Labs 0701/19/17 01/19/17 22:30 22:30 22:31 RDW [place] % (Auto) [place] # PT INR Heparin Anti-Xa Level Sodium Potassium Chloride Carbon Dioxide 20 L BUN 37 H Glucose 131 H Calcium AST ALT Alkaline Phosphatase Total Creatine Kinase 28 L CK-MB (CK-2) Rel Index 7.8 H Troponin T 0.274 H* Total Protein Albumin 01/19/17 01/19/17 01/20/17 23:58 23:58 04:54 RDW 17.3 H 17.0 H [place] % (Auto) 8.9 H 8.6 H [place] # PT INR Heparin Anti-Xa Level Sodium Potassium Chloride Carbon Dioxide BUN Glucose Calcium AST ALT Alkaline Phosphatase Total Creatine Kinase CK-MB (CK-2) Rel Index Troponin T 0.298 H* Total Protein Albumin 01/20/17 01/20/17 01/20/17 04:54 04:54 04:54 RDW [place] % (Auto) [place] # PT INR Heparin Anti-Xa Level Sodium Potassium Chloride Carbon Dioxide BUN 41 H Glucose Calcium AST 105 H ALT 113 H Alkaline Phosphatase 150 H Total Creatine Kinase 24 L CK-MB (CK-2) Rel Index 8.7 H Troponin T 0.313 H* Total Protein 6.2 L Albumin 3.1 L 01/20/17 01/20/17 01/20/17 13:47 13:47 20:29 RDW [place] % (Auto) [place] # PT 18.7 H INR 1.48 H Heparin Anti-Xa Level Sodium Potassium Chloride Carbon Dioxide BUN Glucose Calcium AST ALT Alkaline Phosphatase Total Creatine Kinase 38 L CK-MB (CK-2) Rel Index 7.1 H Troponin T 0.245 H* D Total Protein Albumin 01/21/17 01/22/17 01/22/17 17:01 00:58 01:05 RDW [place] % (Auto) [place] # PT INR Heparin Anti-Xa Level < 0.10 L 0.12 L Sodium 135 L Potassium Chloride Carbon Dioxide 21 L BUN 50 H Glucose Calcium AST ALT Alkaline Phosphatase Total Creatine Kinase CK-MB (CK-2) Rel Index Troponin T Total Protein Albumin 01/22/17 01/22/17 01/22/17 05:41 18:48 20:29 RDW [place] % (Auto) [place] # PT 22.0 H INR 1.82 H Heparin Anti-Xa Level 0.23 L Sodium 135 L Potassium Chloride 97.7 L Carbon Dioxide BUN 42 H Glucose 110 H Calcium 7.9 L AST ALT Alkaline Phosphatase Total Creatine Kinase CK-MB (CK-2) Rel Index Troponin T Total Protein Albumin 01/23/17 01/23/17 01/24/17 09:01 18:56 03:25 RDW [place] % (Auto) [place] # PT 18.0 H 20.3 H INR 1.41 H 1.64 H Heparin Anti-Xa Level Sodium 133 L Potassium Chloride 97.7 L Carbon Dioxide 20 L BUN 32 H Glucose 135 H Calcium 7.8 L AST ALT Alkaline Phosphatase Total Creatine Kinase CK-MB (CK-2) Rel Index Troponin T Total Protein Albumin 01/24/17 01/25/17 01/25/17 19:18 05:37 05:37 RDW 17.4 H [place] % (Auto) 11.4 H [place] # 1.0 H PT 20.0 H INR 1.61 H Heparin Anti-Xa Level Sodium 134 L Potassium Chloride Carbon Dioxide 21 L BUN 28 H Glucose 190 H Calcium 8.2 L AST ALT Alkaline Phosphatase Total Creatine Kinase CK-MB (CK-2) Rel Index Troponin T Total Protein Albumin 01/25/17 01/25/17 01/26/17 05:37 19:09 05:13 RDW [place] % (Auto) [place] # PT 20.3 H INR 1.64 H Heparin Anti-Xa Level Sodium 133 L Potassium 5.7 H D Chloride Carbon Dioxide 21 L 19 L BUN 28 H 30 H Glucose 107 H 157 H Calcium AST ALT Alkaline Phosphatase Total Creatine Kinase CK-MB (CK-2) Rel Index Troponin T Total Protein Albumin 01/26/17 01/27/17 18:42 05:33 RDW [place] % (Auto) [place] # PT 22.1 H INR 1.83 H Heparin Anti-Xa Level Sodium Potassium Chloride Carbon Dioxide BUN 25 H Glucose 117 H Calcium AST ALT Alkaline Phosphatase Total Creatine Kinase CK-MB (CK-2) Rel Index Troponin T Total Protein Albumin CT scan - chest: report reviewed
--- NOTE | 2017-01-27 15:39 | Progress Note ---
Assessment and Plan 61-year-old male with history of hypertension, congestive heart failure with recent acute CA in November 2016 presented with chest pressure, ROSARIO, orthopnea. LLE DVT and PE -continue heparin gtt -warfarin was initiated acute on chronic Congestive heart failure, sytolic Stage C ischemic cardiomyopathy with LVEF 8% and akinesis of the apical and anterior salcido consistent with previous transmural CA in the LAD distribution. now euvolemic, off lasix, optimize cardiac meds -echo shows ef of 8%, end stage CHF -cardiology following Atypical chest pain -cardiology consult appreciated -Persantin thallium stress test done on this admission demonstrates a severe dilated cardiomyopathy and a large fixed apical and septal wall defect without reversible ischemia. This defect is consistent with his recent large myocardial infarction. We will continue medical therapy for his coronary artery disease and ischemic cardiomyopathy Peripheral Arterial disease s/p angioplasty on 01/26/17 Procedure: 1. Ultrasound guided access of the left radial artery. 2. Distal aortography and bilateral common iliac arteriography. 3. Left common and superficial arteriography. 4. Left popliteal arteriography. 5. Left infrapopliteal arteriography with distal runoff. 6. Left external iliac balloon angioplasty 7. Left mid superficial femoral artery balloon angioplasty He will further f/u out pt, reconsulted wound care Ventricular tachycardia Patient apparently had an episode of V. tach on tele. Cardiology is aware, ICD for primary prevention will be indicated if LV dysfunction persists AFTER at least 6-9 months of optimal medical therapy. Acute hypoxic respiratory failure -likely due to CHF and PE -rx underlying cause, continue oxygen supplementation -improved Hypertension continue BP meds MILY/vasomotor nephropathy -likely due to aggressive diuresis -Lasix has been discontinued, creatinine is improved Hyperlipidemia Continue statins DVT prophylaxis fully anticoagulated disposition: when INR therapeutic Subjective Date of service: 01/27/17 Principal diagnosis: acute dvt and pe Interval history: Patient seen and examined. Medical records and medication list reviewed. No acute event overnight noted by the RN. Patient denies any chest pain or difficulty breathing. Discussed plan of care at bedside with patient. Objective - Exam Narrative Exam: GENERAL: well-developed and well-nourished WM lying on bed appeared to be in no discomfort. HEENT: Normocephalic. Atraumatic. No conjunctival congestion or icterus. Patient has moist mucous membranes. NECK: Supple. Trachea midline. CHEST/LUNGS: Clear to auscultated bilaterally, breathing nonlabored. No wheezes crackles or rhonchi. HEART/CARDIOVASCULAR: Regular in rate and rhythm. S1 and S2 positive. ABDOMEN: Abdomen is soft, nontender. Patient has normal bowel sounds. SKIN: There is no rash. Warm and dry. NEURO: No focal motor deficit. Follows command. MUSCULOSKELETAL: No joint effusion or tenderness. EXTRIMITY: No edema, no cyanosis or clubbing. wound dressing on Left foot PSYCH: Cooperative. - Constitutional Vitals: Vital Signs - 12hr 01/27/17 01/27/17 01/27/17 04:48 08:15 08:20 Temperature 98.2 F 98.2 F Pulse Rate Pulse Rate [ 74 102 H Left Radial] Respiratory 18 20 Rate Blood Pressure Blood Pressure 131/64 119/77 [Left Radial Artery] O2 Sat by Pulse 99 100 98 Oximetry 01/27/17 01/27/17 01/27/17 10:27 10:28 12:50 Temperature 97.5 F L Pulse Rate 68 78 Pulse Rate [ 96 H Left Radial] Respiratory 18 Rate Blood Pressure 128/78 128/78 Blood Pressure 124/75 [Left Radial Artery] O2 Sat by Pulse 99 Oximetry 01/27/17 13:12 Temperature Pulse Rate 97 H Pulse Rate [ Left Radial] Respiratory Rate Blood Pressure Blood Pressure [Left Radial Artery] O2 Sat by Pulse Oximetry - Labs CBC & Chem 7: 01/26/17 05:13 01/26/17 18:42 Labs: Abnormal lab results 01/26/17 01/27/17 Range/Units 18:42 05:33 PT 22.1 H (12.2-14.9) Sec. INR 1.83 H (0.87-1.13) BUN 25 H (9-20) mg/dL Glucose 117 H (75-100) mg/dL
[2017-01-27] MEDS: ULTRAM PO PRN (16:20)
[2017-01-27] MEDS: COUMADIN PO SCH (16:20)
[2017-01-27] MEDS: HEPARIN/ 0.45% NACL-25,000 UNIT/500 ML 25,000 UNIT/500 ML BAG IV SCH (16:21)
[2017-01-28 02:29] LABS: Hematocrit 35.8 % (35.5-45.6); Hemoglobin 11.4 gm/dl (11.8-15.2)
--- NOTE | 2017-01-28 06:20 | Treadmill Report ---
THALLIUM STRESS TEST LEFT VENTRICLE: Left ventricle is severely dilated. There is a large fixed apical and septal defect. On the resting study, there is no reversibility. Gated analysis demonstrates severe left ventricular systolic dysfunction with ejection fraction 20%. CONCLUSION: Evidence of severe dilated cardiomyopathy, and a prior large septal and apical infarct. There is no reversible nataly-infarct ischemia. Clinical correlation is recommended. JOB# [id number] CA/NTS
[2017-01-28 06:37] LABS: INR 2.07 (0.87-1.13)
[2017-01-28] MEDS: PLAVIX PO SCH (09:38)
[2017-01-28] MEDS: LOPRESSOR PO SCH ×2 (09:38→21:30)
[2017-01-28] MEDS: ZESTRIL PO SCH (09:39)
--- NOTE | 2017-01-28 12:26 | Progress Note ---
Assessment and Plan 61-year-old male with peripheral vascular disease of the left lower extremity and infrapopliteal DVT with subsegmental pulmonary emboli. Patient will be on triple therapy per cardiology. Anticoagulation per cardiology will cover his pulmonary embolism and deep venous thrombus which should at least be continued for 6 months, possibly further based on cardiology' s recommendations. The left posterior tibial is now strongly palpable. Patient has critical limb ischemia which will require follow-up. Patient requires wound care follow-up wound care center. Patient will follow up in [address] Landry. Explained to the patient the importance of follow-up with his providers or he will likely have a very poor outcome. Explained to the patient he may be best served in a nursing facility until his medical problems are optimized as he is currently without a home and without insurance. Subjective Date of service: 01/28/17 Principal diagnosis: dvt and pvd Interval history: Left lower extremity first digit amputation with bandage overlying the area. The left PT is strongly palpable, the left DP is nonpalpable. Left radial artery palpable. Discussed with the patient that he will require follow-up for both his cardiac issues, and his vascular issues, as well as required wound care. Explain the importance of follow-up and without follow-up the likelihood of poor outcome. Objective - Constitutional Vitals: Vital Signs - 12hr 01/28/17 01/28/17 01/28/17 01:00 01:05 05:51 Temperature 98.1 F 97.8 F Pulse Rate 100 H Pulse Rate [ 89 89 Left Radial] Respiratory 18 20 Rate Blood Pressure Blood Pressure 134/81 104/67 [Left Radial Artery] O2 Sat by Pulse 100 100 Oximetry 01/28/17 01/28/17 01/28/17 08:21 09:38 09:39 Temperature 98.4 F Pulse Rate 101 H 101 H Pulse Rate [ 101 H Left Radial] Respiratory 20 Rate Blood Pressure 114/70 114/70 Blood Pressure 114/70 [Left Radial Artery] O2 Sat by Pulse 99 Oximetry 01/28/17 01/28/17 01/28/17 10:00 12:05 12:08 Temperature 98.2 F Pulse Rate 97 H 101 H Pulse Rate [ Left Radial] Respiratory 20 Rate Blood Pressure 118/79 Blood Pressure [Left Radial Artery] O2 Sat by Pulse 98 98 Oximetry General appearance: Present: no acute distress - EENT Eyes: EOM intact ENT: hearing intact - Respiratory Respiratory effort: labored (on oxygen) Extremities: pulses intact (left radial, left posterior tibial) - Psychiatric Psychiatric: appropriate mood/affect, cooperative - Labs CBC & Chem 7: 01/28/17 02:14 01/26/17 18:42 Labs: Abnormal lab results 01/28/17 01/28/17 Range/Units 02:14 05:21 Hgb 11.4 L (11.8-15.2) gm/dl PT 23.3 H (12.2-14.9) Sec. INR 2.07 H (0.87-1.13)
[2017-01-28] MEDS: ULTRAM PO PRN (14:06)
[2017-01-28] MEDS: PROVENTIL IH SCH ×2 (15:44→20:58)
--- NOTE | 2017-01-28 16:05 | Progress Note ---
Assessment and Plan 61-year-old male with history of hypertension, congestive heart failure with recent acute MD in November 2016 presented with chest pressure, ROSARIO, orthopnea. LLE DVT and PE -d/c heparin gtt as inr therapeutic -warfarin continue acute on chronic Congestive heart failure, sytolic Stage C ischemic cardiomyopathy with LVEF 8% and akinesis of the apical and anterior salcido consistent with previous transmural MD in the LAD distribution. now euvolemic, off lasix, optimize cardiac meds -echo shows ef of 8%, end stage CHF -cardiology following Atypical chest pain -cardiology was consult on admission -Persantin thallium stress test done on this admission demonstrates a severe dilated cardiomyopathy and a large fixed apical and septal wall defect without reversible ischemia. This defect is consistent with his recent large myocardial infarction. We will continue optimal medical therapy for his coronary artery disease and ischemic cardiomyopathy Peripheral Arterial disease s/p angioplasty on 01/26/17 Procedure: 1. Ultrasound guided access of the left radial artery. 2. Distal aortography and bilateral common iliac arteriography. 3. Left common and superficial arteriography. 4. Left popliteal arteriography. 5. Left infrapopliteal arteriography with distal runoff. 6. Left external iliac balloon angioplasty 7. Left mid superficial femoral artery balloon angioplasty He will further f/u out pt, reconsulted wound care Ventricular tachycardia Patient apparently had an episode of V. tach on tele. Cardiology is aware, ICD for primary prevention will be indicated if LV dysfunction persists AFTER at least 6-9 months of optimal medical therapy. Acute hypoxic respiratory failure -likely due to CHF and PE -rx underlying cause, continue oxygen supplementation -improved Hypertension continue BP meds MILY/vasomotor nephropathy -likely due to aggressive diuresis -Lasix has been discontinued, creatinine is improved Hyperlipidemia Continue statins DVT prophylaxis fully anticoagulated disposition: when INR therapeutic off heparin Subjective Date of service: 01/28/17 Principal diagnosis: dvt and pvd Interval history: Patient seen and examined. Medical records and medication list reviewed. No acute event overnight noted by the RN. Patient c/o chest pain and anxiety. Discussed plan of care at bedside with patient. Objective - Exam Narrative Exam: GENERAL: well-developed and well-nourished WM lying on bed appeared to be in no discomfort. HEENT: Normocephalic. Atraumatic. No conjunctival congestion or icterus. Patient has moist mucous membranes. NECK: Supple. Trachea midline. CHEST/LUNGS: Clear to auscultated bilaterally, breathing nonlabored. No wheezes crackles or rhonchi. HEART/CARDIOVASCULAR: Regular in rate and rhythm. S1 and S2 positive. ABDOMEN: Abdomen is soft, nontender. Patient has normal bowel sounds. SKIN: There is no rash. Warm and dry. NEURO: No focal motor deficit. Follows command. MUSCULOSKELETAL: No joint effusion or tenderness. EXTRIMITY: No edema, no cyanosis or clubbing. wound dressing on Left foot PSYCH: Cooperative. - Constitutional Vitals: Vital Signs - 12hr 01/28/17 01/28/17 01/28/17 05:51 08:21 09:38 Temperature 97.8 F 98.4 F Pulse Rate 101 H Pulse Rate [ Anterior Bilateral Throughout] Pulse Rate [ Bilateral Throughout] Pulse Rate [ 89 101 H Left Radial] Respiratory 20 20 Rate Respiratory Rate [Anterior Bilateral Throughout] Respiratory Rate [Bilateral Throughout] Blood Pressure 114/70 Blood Pressure 104/67 114/70 [Left Radial Artery] O2 Sat by Pulse 100 99 Oximetry 01/28/17 01/28/17 01/28/17 09:39 10:00 12:05 Temperature Pulse Rate 101 H 97 H Pulse Rate [ Anterior Bilateral Throughout] Pulse Rate [ Bilateral Throughout] Pulse Rate [ Left Radial] Respiratory Rate Respiratory Rate [Anterior Bilateral Throughout] Respiratory Rate [Bilateral Throughout] Blood Pressure 114/70 Blood Pressure [Left Radial Artery] O2 Sat by Pulse 98 Oximetry 01/28/17 01/28/17 01/28/17 12:08 15:44 15:54 Temperature 98.2 F Pulse Rate 101 H Pulse Rate [ 98 H Anterior Bilateral Throughout] Pulse Rate [ 101 H Bilateral Throughout] Pulse Rate [ Left Radial] Respiratory 20 Rate Respiratory 20 20 Rate [Anterior Bilateral Throughout] Respiratory 20 Rate [Bilateral Throughout] Blood Pressure 118/79 Blood Pressure [Left Radial Artery] O2 Sat by Pulse 98 Oximetry - Labs CBC & Chem 7: 01/28/17 02:14 01/26/17 18:42 Labs: Abnormal lab results 01/28/17 01/28/17 Range/Units 02:14 05:21 Hgb 11.4 L (11.8-15.2) gm/dl PT 23.3 H (12.2-14.9) Sec. INR 2.07 H (0.87-1.13)
--- NOTE | 2017-01-28 16:38 | Progress Note ---
Assessment and Plan Assessment and Plan Imp: 1. Acute PE 2. Acute DVT 3. ICMP 4. A/C systolic CHF -> pleural effusions 5. Chronic nicotine dependence, cigarettes prob some copd 6. PVD ischemic foot s/p toe amputation Rec: 1. Heparin -> Coumadin minimum of 6 months 2. Wean O2 to off; check need for home O2 prior to d/c 3. Monitor volume status closely 4. D/c smoking permanently Plan of care reviewed w/ patient, he understands/agrees Subjective Date of service: 01/28/17 Principal diagnosis: dvt and pvd Interval history: 01/28 No new pulm issues on 2-3L sat 90s stayed in 90s off 02 as well has some sob also anxious no obv resp issues at rest. Denies cough chest pain etc Objective Vital Signs - 12hr 01/28/17 01/28/17 01/28/17 05:51 08:21 09:38 Temperature 97.8 F 98.4 F Pulse Rate 101 H Pulse Rate [ Anterior Bilateral Throughout] Pulse Rate [ Bilateral Throughout] Pulse Rate [ 89 101 H Left Radial] Respiratory 20 20 Rate Respiratory Rate [Anterior Bilateral Throughout] Respiratory Rate [Bilateral Throughout] Blood Pressure 114/70 Blood Pressure 104/67 114/70 [Left Radial Artery] O2 Sat by Pulse 100 99 Oximetry 01/28/17 01/28/17 01/28/17 09:39 10:00 12:05 Temperature Pulse Rate 101 H 97 H Pulse Rate [ Anterior Bilateral Throughout] Pulse Rate [ Bilateral Throughout] Pulse Rate [ Left Radial] Respiratory Rate Respiratory Rate [Anterior Bilateral Throughout] Respiratory Rate [Bilateral Throughout] Blood Pressure 114/70 Blood Pressure [Left Radial Artery] O2 Sat by Pulse 98 Oximetry 01/28/17 01/28/17 01/28/17 12:08 15:44 15:54 Temperature 98.2 F Pulse Rate 101 H Pulse Rate [ 98 H Anterior Bilateral Throughout] Pulse Rate [ 101 H Bilateral Throughout] Pulse Rate [ Left Radial] Respiratory 20 Rate Respiratory 20 20 Rate [Anterior Bilateral Throughout] Respiratory 20 Rate [Bilateral Throughout] Blood Pressure 118/79 Blood Pressure [Left Radial Artery] O2 Sat by Pulse 98 Oximetry Constitutional: no acute distress, alert Eyes: non-icteric ENT: oropharynx moist Neck: supple, no lymphadenopathy Effort: normal Ascultation: Bilateral: diminished breath sounds (bases), rales (sporadic bases. ), other (min prolongted exp phase) Cardiovascular: regular rate and rhythm (no mrg) Gastrointestinal: normoactive bowel sounds, non-distended Extremities: no cyanosis, no edema Neurologic: normal mental status, non-focal exam, pupils equal and round, CN II- XII normal Psychiatric: mood appropriate, affect normal CBC and BMP: 01/28/17 02:14 01/26/17 18:42 ABG, PT/INR, D-dimer: PT/INR, D-dimer PT 23.3 Sec. (12.2-14.9) H 01/28/17 05:21 INR 2.07 (0.87-1.13) H 01/28/17 05:21 D-Dimer 3206.82 ng/mlDDU (0-234) H 01/19/17 20:26 Abnormal lab findings: Abnormal Labs 01/19/17 01/19/17 01/19/17 22:30 22:30 22:31 Hgb RDW [place] % (Auto) Co[place] # PT INR Heparin Anti-Xa Level Sodium Potassium Chloride Carbon Dioxide 20 L BUN 37 H Glucose 131 H Calcium AST ALT Alkaline Phosphatase Total Creatine Kinase 28 L CK-MB (CK-2) Rel Index 7.8 H Troponin T 0.274 H* Total Protein Albumin 01/19/17 01/19/17 01/20/17 23:58 23:58 04:54 Hgb RDW 17.3 H 17.0 H [place] % (Auto) 8.9 H 8.6 H [place] # PT INR Heparin Anti-Xa Level Sodium Potassium Chloride Carbon Dioxide BUN Glucose Calcium AST ALT Alkaline Phosphatase Total Creatine Kinase CK-MB (CK-2) Rel Index Troponin T 0.298 H* Total Protein Albumin 01/20/17 01/20/17 01/20/17 04:54 04:54 04:54 Hgb RDW [place] % (Auto) [place] # PT INR Heparin Anti-Xa Level Sodium Potassium Chloride Carbon Dioxide BUN 41 H Glucose Calcium AST 105 H ALT 113 H Alkaline Phosphatase 150 H Total Creatine Kinase 24 L CK-MB (CK-2) Rel Index 8.7 H Troponin T 0.313 H* Total Protein 6.2 L Albumin 3.1 L 01/20/17 01/20/17 01/20/17 13:47 13:47 20:29 Hgb RDW [place] % (Auto) [place] # PT 18.7 H INR 1.48 H Heparin Anti-Xa Level Sodium Potassium Chloride Carbon Dioxide BUN Glucose Calcium AST ALT Alkaline Phosphatase Total Creatine Kinase 38 L CK-MB (CK-2) Rel Index 7.1 H Troponin T 0.245 H* D Total Protein Albumin 01/21/17 01/22/17 01/22/17 17:01 00:58 01:05 Hgb RDW [place] % (Auto) [place] # PT INR Heparin Anti-Xa Level < 0.10 L 0.12 L Sodium 135 L Potassium Chloride Carbon Dioxide 21 L BUN 50 H Glucose Calcium AST ALT Alkaline Phosphatase Total Creatine Kinase CK-MB (CK-2) Rel Index Troponin T Total Protein Albumin 01/22/17 01/22/17 01/22/17 05:41 18:48 20:29 Hgb RDW [place] % (Auto) [place] # PT 22.0 H INR 1.82 H Heparin Anti-Xa Level 0.23 L Sodium 135 L Potassium Chloride 97.7 L Carbon Dioxide BUN 42 H Glucose 110 H Calcium 7.9 L AST ALT Alkaline Phosphatase Total Creatine Kinase CK-MB (CK-2) Rel Index Troponin T Total Protein Albumin 01/23/17 01/23/17 01/24/17 09:01 18:56 03:25 Hgb RDW [place] % (Auto) [place] # PT 18.0 H 20.3 H INR 1.41 H 1.64 H Heparin Anti-Xa Level Sodium 133 L Potassium Chloride 97.7 L Carbon Dioxide 20 L BUN 32 H Glucose 135 H Calcium 7.8 L AST ALT Alkaline Phosphatase Total Creatine Kinase CK-MB (CK-2) Rel Index Troponin T Total Protein Albumin 01/24/17 01/25/17 01/25/17 19:18 05:37 05:37 Hgb RDW 17.4 H [place] % (Auto) 11.4 H [place] # 1.0 H PT 20.0 H INR 1.61 H Heparin Anti-Xa Level Sodium 134 L Potassium Chloride Carbon Dioxide 21 L BUN 28 H Glucose 190 H Calcium 8.2 L AST ALT Alkaline Phosphatase Total Creatine Kinase CK-MB (CK-2) Rel Index Troponin T Total Protein Albumin 01/25/17 01/25/17 01/26/17 05:37 19:09 05:13 Hgb RDW [place] % (Auto) [place] # PT 20.3 H INR 1.64 H Heparin Anti-Xa Level Sodium 133 L Potassium 5.7 H D Chloride Carbon Dioxide 21 L 19 L BUN 28 H 30 H Glucose 107 H 157 H Calcium AST ALT Alkaline Phosphatase Total Creatine Kinase CK-MB (CK-2) Rel Index Troponin T Total Protein Albumin 01/26/17 01/27/17 01/28/17 18:42 05:33 02:14 Hgb 11.4 L RDW [place] % (Auto) [place] # PT 22.1 H INR 1.83 H Heparin Anti-Xa Level Sodium Potassium Chloride Carbon Dioxide BUN 25 H Glucose 117 H Calcium AST ALT Alkaline Phosphatase Total Creatine Kinase CK-MB (CK-2) Rel Index Troponin T Total Protein Albumin 01/28/17 05:21 Hgb RDW [place] % (Auto) [place] # PT 23.3 H INR 2.07 H Heparin Anti-Xa Level Sodium Potassium Chloride Carbon Dioxide BUN Glucose Calcium AST ALT Alkaline Phosphatase Total Creatine Kinase CK-MB (CK-2) Rel Index Troponin T Total Protein Albumin
[2017-01-28] MEDS: COUMADIN PO SCH (18:14)
[2017-01-29] MEDS: PROVENTIL IH SCH ×2 (07:43→13:19)
[2017-01-29] MEDS: PLAVIX PO SCH (09:46)
[2017-01-29] MEDS: LOPRESSOR PO SCH (09:46)
[2017-01-29] MEDS: ZESTRIL PO SCH (09:46)
[2017-01-29] MEDS ORDERED: HALFPRIN EC PO SCH (11:00)
--- NOTE | 2017-01-29 11:30 | Progress Note ---
Assessment and Plan - Patient Problems (1) Chest pain Current Visit: Yes Status: Acute Qualifiers: Chest pain type: C Ischemic chest pain type: I Plan to address problem: Patient will continue medical therapy for coronary artery disease including dual oral antiplatelet therapy. Due to the presenting acute pulmonary embolism , he is also on warfarin therapy and will be discharged on triple therapy. (2) Nonsustained ventricular tachycardia Current Visit: Yes Status: Acute Subjective Date of service: 01/29/17 Principal diagnosis: dvt and pvd Interval history: Patient is comfortable, no acute distress. No new cardiac complaints. Objective Vital Signs Temp Pulse Pulse Pulse Resp Resp Resp 01/29/17 11:22 20 01/29/17 10:05 97.4 F L 104 H 18 01/29/17 07:54 102 H 18 01/29/17 07:45 01/29/17 07:44 100 H 18 01/29/17 05:30 97.6 F 78 20 01/29/17 00:20 98.4 F 96 H 18 01/29/17 00:00 102 H 01/28/17 21:08 103 H 13 01/28/17 21:03 01/28/17 20:59 108 H 15 01/28/17 20:56 2 L 01/28/17 20:00 97.9 F 101 H 20 01/28/17 18:20 98.7 F 100 H 18 01/28/17 15:54 101 H 20 20 01/28/17 15:44 98 H 20 01/28/17 12:08 98.2 F 101 H 20 01/28/17 12:05 97 H BP Pulse Ox 01/29/17 11:22 96 01/29/17 10:05 118/78 94 01/29/17 07:54 01/29/17 07:45 96 01/29/17 07:44 01/29/17 05:30 110/64 94 01/29/17 00:20 121/78 98 01/29/17 00:00 01/28/17 21:08 01/28/17 21:03 99 01/28/17 20:59 01/28/17 20:56 01/28/17 20:00 118/80 100 01/28/17 18:20 116/80 98 01/28/17 15:54 01/28/17 15:44 01/28/17 12:08 118/79 98 01/28/17 12:05 - Physical Examination General: No Apparent Distress HEENT: Positive: PERRL Neck: Positive: trachea midline Cardiac: Positive: Reg Rate and Rhythm Lungs: Positive: Decreased Breath Sounds Neuro: Positive: Grossly Intact Abdomen: Positive: Soft Skin: Positive: Clear Extremities: Absent: edema - Labs and Meds Coagulation 01/29/17 Range/Units 04:41 PT 22.7 H (12.2-14.9) Sec. INR 2.00 H (0.87-1.13) - Imaging and Cardiology EKG: image reviewed (Sinus tach, with inferior and septal ischemia- indeterminate age)
--- NOTE | 2017-01-29 13:56 | Progress Note ---
Assessment and Plan Assessment and Plan Imp: 1. Acute PE 2. Acute DVT 3. ICMP 4. A/C systolic CHF -> pleural effusions 5. Chronic nicotine dependence, cigarettes prob some copd 6. PVD ischemic foot s/p toe amputation Rec: 1. Coumadin minimum of 6 months 2. Wean O2 to off; check need for home O2 prior to d/c 3. Monitor volume status closely 4. D/c smoking permanently Subjective Date of service: 01/29/17 Principal diagnosis: dvt and pvd Interval history: Patient breathing better. No new complaints Objective Vital Signs - 12hr 01/29/17 01/29/17 01/29/17 05:30 07:44 07:45 Temperature 97.6 F Pulse Rate 78 Pulse Rate [ 100 H Anterior Bilateral Throughout] Respiratory 20 Rate Respiratory 18 Rate [Anterior Bilateral Throughout] Blood Pressure 110/64 O2 Sat by Pulse 94 96 Oximetry 01/29/17 01/29/17 01/29/17 07:54 10:05 11:22 Temperature 97.4 F L Pulse Rate 104 H Pulse Rate [ 102 H Anterior Bilateral Throughout] Respiratory 18 20 Rate Respiratory 18 Rate [Anterior Bilateral Throughout] Blood Pressure 118/78 O2 Sat by Pulse 94 96 Oximetry 01/29/17 01/29/17 01/29/17 12:32 13:19 13:25 Temperature Pulse Rate 100 H Pulse Rate [ 94 H 95 H Anterior Bilateral Throughout] Respiratory Rate Respiratory 18 18 Rate [Anterior Bilateral Throughout] Blood Pressure O2 Sat by Pulse Oximetry Constitutional: no acute distress, alert Eyes: non-icteric ENT: oropharynx moist Neck: supple, no lymphadenopathy Effort: normal Ascultation: Bilateral: clear, diminished breath sounds (bases), rales ( sporadic bases. ), other (min prolongted exp phase) Cardiovascular: regular rate and rhythm (no mrg) Gastrointestinal: normoactive bowel sounds, non-distended Extremities: no cyanosis, no edema Neurologic: normal mental status, non-focal exam, pupils equal and round, CN II- XII normal Psychiatric: mood appropriate, affect normal CBC and BMP: 01/28/17 02:14 01/26/17 18:42 ABG, PT/INR, D-dimer: PT/INR, D-dimer PT 22.7 Sec. (12.2-14.9) H 01/29/17 04:41 INR 2.00 (0.87-1.13) H 01/29/17 04:41 D-Dimer 3206.82 ng/mlDDU (0-234) H 01/19/17 20:26 Abnormal lab findings: Abnormal Labs 01/19/17 01/19/17 01/19/17 22:30 22:30 22:31 Hgb RDW Hall % (Auto) Hall # PT INR Heparin Anti-Xa Level Sodium Potassium Chloride Carbon Dioxide 20 L BUN 37 H Glucose 131 H Calcium AST ALT Alkaline Phosphatase Total Creatine Kinase 28 L CK-MB (CK-2) Rel Index 7.8 H Troponin T 0.274 H* Total Protein Albumin 01/19/17 01/19/17 01/20/17 23:58 23:58 04:54 Hgb RDW 17.3 H 17.0 H Hall % (Auto) 8.9 H 8.6 H Hall # PT INR Heparin Anti-Xa Level Sodium Potassium Chloride Carbon Dioxide BUN Glucose Calcium AST ALT Alkaline Phosphatase Total Creatine Kinase CK-MB (CK-2) Rel Index Troponin T 0.298 H* Total Protein Albumin 01/20/17 01/20/17 01/20/17 04:54 04:54 04:54 Hgb RDW [place] % (Auto) Hall # PT INR Heparin Anti-Xa Level Sodium Potassium Chloride Carbon Dioxide BUN 41 H Glucose Calcium AST 105 H ALT 113 H Alkaline Phosphatase 150 H Total Creatine Kinase 24 L CK-MB (CK-2) Rel Index 8.7 H Troponin T 0.313 H* Total Protein 6.2 L Albumin 3.1 L 01/20/17 01/20/17 01/20/17 13:47 13:47 20:29 Hgb RDW Hall % (Auto) Hall # PT 18.7 H INR 1.48 H Heparin Anti-Xa Level Sodium Potassium Chloride Carbon Dioxide BUN Glucose Calcium AST ALT Alkaline Phosphatase Total Creatine Kinase 38 L CK-MB (CK-2) Rel Index 7.1 H Troponin T 0.245 H* D Total Protein Albumin 01/21/17 01/22/17 01/22/17 17:01 00:58 01:05 Hgb RDW Hall % (Auto) Hall # PT INR Heparin Anti-Xa Level < 0.10 L 0.12 L Sodium 135 L Potassium Chloride Carbon Dioxide 21 L BUN 50 H Glucose Calcium AST ALT Alkaline Phosphatase Total Creatine Kinase CK-MB (CK-2) Rel Index Troponin T Total Protein Albumin 01/22/17 01/22/17 01/22/17 05:41 18:48 20:29 Hgb RDW [place] % (Auto) Hall # PT 22.0 H INR 1.82 H Heparin Anti-Xa Level 0.23 L Sodium 135 L Potassium Chloride 97.7 L Carbon Dioxide BUN 42 H Glucose 110 H Calcium 7.9 L AST ALT Alkaline Phosphatase Total Creatine Kinase CK-MB (CK-2) Rel Index Troponin T Total Protein Albumin 01/23/17 01/23/17 01/24/17 09:01 18:56 03:25 Hgb RDW [place] % (Auto) Hall # PT 18.0 H 20.3 H INR 1.41 H 1.64 H Heparin Anti-Xa Level Sodium 133 L Potassium Chloride 97.7 L Carbon Dioxide 20 L BUN 32 H Glucose 135 H Calcium 7.8 L AST ALT Alkaline Phosphatase Total Creatine Kinase CK-MB (CK-2) Rel Index Troponin T Total Protein Albumin 01/24/17 01/25/17 01/25/17 19:18 05:37 05:37 Hgb RDW 17.4 H Hall % (Auto) 11.4 H Hall # 1.0 H PT 20.0 H INR 1.61 H Heparin Anti-Xa Level Sodium 134 L Potassium Chloride Carbon Dioxide 21 L BUN 28 H Glucose 190 H Calcium 8.2 L AST ALT Alkaline Phosphatase Total Creatine Kinase CK-MB (CK-2) Rel Index Troponin T Total Protein Albumin 01/25/17 01/25/17 01/26/17 05:37 19:09 05:13 Hgb RDW [place] % (Auto) Hall # PT 20.3 H INR 1.64 H Heparin Anti-Xa Level Sodium 133 L Potassium 5.7 H D Chloride Carbon Dioxide 21 L 19 L BUN 28 H 30 H Glucose 107 H 157 H Calcium AST ALT Alkaline Phosphatase Total Creatine Kinase CK-MB (CK-2) Rel Index Troponin T Total Protein Albumin 01/26/17 01/27/17 01/28/17 18:42 05:33 02:14 Hgb 11.4 L RDW [place] % (Auto) Hall # PT 22.1 H INR 1.83 H Heparin Anti-Xa Level Sodium Potassium Chloride Carbon Dioxide BUN 25 H Glucose 117 H Calcium AST ALT Alkaline Phosphatase Total Creatine Kinase CK-MB (CK-2) Rel Index Troponin T Total Protein Albumin 01/28/17 01/28/17 01/29/17 05:21 17:17 00:57 Hgb RDW [place] % (Auto) Hall # PT 23.3 H INR 2.07 H Heparin Anti-Xa Level Sodium Potassium Chloride Carbon Dioxide BUN Glucose Calcium AST ALT Alkaline Phosphatase Total Creatine Kinase CK-MB (CK-2) Rel Index Troponin T 0.134 H* 0.135 H* Total Protein Albumin 01/29/17 01/29/17 01/29/17 04:41 04:41 11:54 Hgb RDW [place] % (Auto) Hall # PT 22.7 H INR 2.00 H Heparin Anti-Xa Level < 0.10 L Sodium Potassium Chloride Carbon Dioxide BUN Glucose Calcium AST ALT Alkaline Phosphatase Total Creatine Kinase CK-MB (CK-2) Rel Index Troponin T 0.140 H* 0.126 H* Total Protein Albumin
[2017-01-29 14:03] VITALS: BP 107/63
--- NOTE | 2017-01-29 15:55 | Discharge Summary ---
Providers - Providers Date of Admission: 01/19/17 21:13 Date of discharge: 01/29/17 Attending physician: VANIA SIMENTAL 01/19/17 Consult to Cardiac Rehabilitation [CONS] Routine Reason For Exam: Phase I 01/20/17 06:35 Consult to Physician [CONS] Routine Consulting Provider: FRANKIE SCHNEIDER Reason For Exam: ACS Place consult to:: DR SCHNEIDER Notified:: DR SCHNEIDER 01/20/17 08:09 Consult to Wound/ET Nurse [CONS] Routine Reason For Exam: wound eval 01/20/17 15:17 Consult to Physician [CONS] Routine Consulting Provider: PEREZ MERCHANT Reason For Exam: PAD, with LLE dvt Place consult to:: DR. MERCHANT Notified:: OFFICE Phone number called:: [phone] Was contact made?: Yes Time called:: 15:30 Comment:: CONSULT COMPLETED LEFT MSG ON EXT 108 01/20/17 15:18 Consult to Wound/ET Nurse [CONS] Routine Reason For Exam: wound eval 01/20/17 15:19 Physical Therapy Evaluation and Treat [CONS] Routine Comment: Reason For Exam: debility 01/24/17 14:35 Consult to Physician [CONS] Routine Consulting Provider: ISABELLA MAJANO Reason For Exam: Possible LLE revascularization Place consult to:: Blanca Notified:: Office Phone number called:: [phone] Was contact made?: Yes Time called:: 15:12 Comment:: 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 Please pulmonary clearane 01/25/17 09:58 Physical Therapy Evaluation and Treat [CONS] Routine Comment: Reason For Exam: Gait training, s/p toe amp at outside facility 01/26/17 10:38 Consult to Physician [CONS] Routine Consulting Provider: ANITA EDUARDO Reason For Exam: left foot wound Place consult to:: wound care surgeon (Dr. Patrice Eduardo) Notified:: Pierre HOPE Phone number called:: Was contact made?: Yes If yes, spoke with:: Allyssa-Office Time called:: 11:00 01/27/17 13:08 Consult to Wound/ET Nurse [CONS] Routine Reason For Exam: wound eval Primary care physician: LACING OPERATOR Hospitalization Condition: Stable Hospital course: 61-year-old male with history of hypertension, congestive heart failure with recent acute IA in November 2016 presented with chest pressure, ROSARIO, orthopnea. Discharge Summary and management: LLE DVT and PE -d/c heparin gtt as inr therapeutic -warfarin continue acute on chronic Congestive heart failure, sytolic Stage C ischemic cardiomyopathy with LVEF 8% and akinesis of the apical and anterior salcido consistent with previous transmural IA in the LAD distribution. now euvolemic, off lasix, optimize cardiac meds -echo shows ef of 8%, end stage CHF -cardiology following Atypical chest pain -cardiology was consult on admission -Persantin thallium stress test done on this admission demonstrates a severe dilated cardiomyopathy and a large fixed apical and septal wall defect without reversible ischemia. This defect is consistent with his recent large myocardial infarction. We will continue optimal medical therapy for his coronary artery disease and ischemic cardiomyopathy Peripheral Arterial disease s/p angioplasty on 01/26/17 Procedure: 1. Ultrasound guided access of the left radial artery. 2. Distal aortography and bilateral common iliac arteriography. 3. Left common and superficial arteriography. 4. Left popliteal arteriography. 5. Left infrapopliteal arteriography with distal runoff. 6. Left external iliac balloon angioplasty 7. Left mid superficial femoral artery balloon angioplasty He will further f/u out pt, reconsulted wound care Ventricular tachycardia Patient apparently had an episode of V. tach on tele. Cardiology is aware, ICD for primary prevention will be indicated if LV dysfunction persists AFTER at least 6-9 months of optimal medical therapy. Acute hypoxic respiratory failure -likely due to CHF and PE -rx underlying cause, continue oxygen supplementation -improved Hypertension continue BP meds MILY/vasomotor nephropathy -likely due to aggressive diuresis -Lasix has been discontinued, creatinine is improved Hyperlipidemia Continue statins Disposition: [id number] HOME UNDER HOME HL Time spent for discharge: 32 minutes Core Measure Documentation - Palliative Care Palliative Care/ Comfort Measures: Not Applicable - Core Measures Any of the following diagnoses?: history only Exam - Physical Exam Narrative exam: GENERAL: well-developed and well-nourished WM lying on bed appeared to be in no discomfort. HEENT: Normocephalic. Atraumatic. No conjunctival congestion or icterus. Patient has moist mucous membranes. NECK: Supple. Trachea midline. CHEST/LUNGS: Clear to auscultated bilaterally, breathing nonlabored. No wheezes crackles or rhonchi. HEART/CARDIOVASCULAR: Regular in rate and rhythm. S1 and S2 positive. ABDOMEN: Abdomen is soft, nontender. Patient has normal bowel sounds. SKIN: There is no rash. Warm and dry. NEURO: No focal motor deficit. Follows command. MUSCULOSKELETAL: No joint effusion or tenderness. EXTRIMITY: No edema, no cyanosis or clubbing. wound dressing on Left foot PSYCH: Cooperative. - Constitutional Vitals: Temp Pulse Resp BP Pulse Ox 98.7 F 88 18 107/63 100 01/29/17 14:01 01/29/17 14:01 01/29/17 14:01 01/29/17 14:01 01/29/17 14:01 Plan Activity: up only with assistance Weight Bearing Status: Non-Weight Bearing Diet: low fat, low salt Durable Medical Equipment Needed Upon Discharge: Walker-Rolling Follow up with: PRIMARY CARE, [Primary Care Provider] - 3-5 Days Forms: Warfarin Discharge Instruction Prescriptions: Aspirin EC [Aspirin Enteric Coated TAB] 81 mg PO QDAY #30 tablet Clopidogrel [Plavix] 75 mg PO QDAY #30 tablet Lisinopril [Zestril TAB] 2.5 mg PO QDAY #30 tablet Lovastatin [Altoprev] 40 mg PO QPM #30 tab.er.24h Metoprolol [Lopressor TAB] 50 mg PO BID #60 tablet traMADol [Ultram 50 MG tab] 50 mg PO Q4HR PRN #30 tablet PRN Reason: Pain Warfarin [Coumadin] 8 mg PO DAILY@1700 #30 tablet
== END 2017-01-29 16:46 | disposition home health service (06) | DRG 252 ==
LOC: ED 18:43 → 4A 21:13
PROVIDERS: ADMIT Internal Medicine; ATTEND Internal Medicine
PROC: 047J3ZZ Dilation of Left External Iliac Artery, Percutaneous Approach (ICD-10-PCS; principal; 2017-01-26)
PROC: 047L3ZZ Dilation of Left Femoral Artery, Percutaneous Approach (ICD-10-PCS; 2017-01-26)
PROC: B41D1ZZ Fluoroscopy of Aorta and Bilateral Lower Extremity Arteries using Low Osmolar Contrast (ICD-10-PCS; 2017-01-26)
DX: I82.492 Acute embolism and thrombosis of other specified deep vein of left lower extremity (principal); I26.99 Other pulmonary embolism without acute cor pulmonale; I21.4 Non-ST elevation (NSTEMI) myocardial infarction; I50.23 Acute on chronic systolic (congestive) heart failure; J96.01 Acute respiratory failure with hypoxia; N17.0 Acute kidney failure with tubular necrosis; I24.9 Acute ischemic heart disease, unspecified; I47.2 Ventricular tachycardia; J90 Pleural effusion, not elsewhere classified; I11.0 Hypertensive heart disease with heart failure; F41.9 Anxiety disorder, unspecified; I25.119 Atherosclerotic heart disease of native coronary artery with unspecified angina pectoris; E78.2 Mixed hyperlipidemia; I73.9 Peripheral vascular disease, unspecified; I25.5 Ischemic cardiomyopathy; E87.5 Hyperkalemia; I25.2 Old myocardial infarction; Z89.412 Acquired absence of left great toe; Z88.0 Allergy status to penicillin; Z98.61 Coronary angioplasty status; Z89.422 Acquired absence of other left toe(s)
CPT/HCPCS: 36415; 37220; 37224; 71010; 71275; 75635; 75716; 76937; 78452; 80048; 80053; 80061; 82550; 82553; 83036; 83735; 83880; 84132; 84484; 85014; 85018; 85025; 85049; 85379; 85520; 85610; 85730; 93005; 93010; 93017; 93306; 93922; 93925; 93970; 94640; 94760; 96374; 96375; A9270-GY; A9502; C1725; C1769; C1894; J1170; J1644; J1940; J2060; J2250; J2270; J2370; J2405; J2704; J2785; J3010; J3370; J7030; Q9967